=== PATIENT | female | born 1995 | race Hispanic/Latino ===

== ENCOUNTER 2018-03-31 14:30 | Emergency (ER) | payer BC, SELFPAY ==
[2018-03-31] MEDS ORDERED: ONDANSETRON 4 MG/2 ML VIAL ONE (15:26)
[2018-03-31] MEDS ORDERED: NA CHLORIDE 0.9% 1,000 ML ONE (15:26)
[2018-03-31 15:41] LABS: Absolute Lymphocytes (CBC) 0.4 K/uL (0.7-4.9); Absolute Monocytes 0.6 K/uL (0.1-1.3); Absolute Neutrophil 13.1 K/uL (1.8-8.0); Basophils % 0.4 % (0-1.3); Eosinophils % 0.5 % (0-4.4); Hematocrit 41.8 % (36.0-45.0); Lymphocytes % 2.9 % (15.3-44.8); MCH 29.2 pg (27.0-35.0); MCV 85.9 fL (80-100); MPV 10.5 fL (7.6-11.3); Monocytes % 4.4 % (3.3-12.3); RBC Red Blood Cell Count 4.86 M/uL (3.86-4.86)
[2018-03-31 15:43] LABS: Bicarbonate 25 mEq/L (21-31); Glucose Level 117 mg/dL (65-120); Lipase 28 U/L (22-51); Potassium 3.6 mEq/L (3.6-5.0); Sodium Level 137 mEq/L (135-145)
[2018-03-31 15:46] LABS: ALT/SGPT 19 IU/L (10-60); AST/SGOT 22 IU/L (10-42); Albumin 4.5 g/dL (3.2-5.5); Alkaline Phosphatase 78 IU/L (42-121); BUN Blood Urea Nitrogen 12 mg/dL (6-20); Bilirubin Total 0.7 mg/dL (0.3-1.2); Protein, Total 7.6 g/dL (6.0-8.3)
[2018-03-31 15:48] LABS: Urine Blood NEGATIVE (NEG); Urine Glucose NEGATIVE (NEG); Urine Protein 1+ (NEG); Urine Specific Gravity 1.015 (1.005-1.030); Urine pH 7.5 (5.0-7.0)
[2018-03-31 16:05] LABS: Urine Bacteria <20 /HPF (<20); Urine Culture Reflex Order NOT NEEDED; Urine RBC <5 /HPF (NONE SEEN)
[2018-03-31 16:13] LABS: Blood Morphology Comment NOT SEEN (NOT SEEN); Platelet Estimate ADEQ; Urine White Blood Cell Casts OK
--- NOTE | 2018-03-31 17:09 | ER ---
Nurse's Notes [facility] Name: Nay An Age: 22 yrs Sex: Female : 1995 Arrival Date: 03/31/2018 Time: 14:31 Bed 17 Private MD: Bulmaro Calle Diagnosis: Vomiting Presentation: 03/31 14:44 Presenting complaint: Patient states: Woke up around 0400 this morning with epigastric dm5 pain that was intermittent and "felt like there was a knot", patient states they woke up again around 0700 and vomitted x 2 today. Patient also complains of bilateral flank pain. Pain rated at 5/10 earlier it was a 9/10. Transition of care: patient was not received from another setting of care. Onset of symptoms was March 31, 2018. Risk Assessment: Do you want to hurt yourself or someone else? Patient reports no desire to harm self or others. Initial Sepsis Screen: Does the patient meet any 2 criteria? HR > 90 bpm. Does the patient have a suspected source of infection? No. Patient's initial sepsis screen is negative. Care prior to arrival: None. 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 - Social history:: Smoking status: Patient/guardian denies using tobacco, never smoked, Patient/guardian denies using alcohol. - Ebola Screening: : Patient denies travel to an Ebola-affected area in the 21 days before illness onset No symptoms or risks identified at this time. Screenin:09 Abuse screen: Denies threats or abuse. Nutritional screening: No deficits noted. mb3 Tuberculosis screening: No symptoms or risk factors identified. Fall Risk None identified. Assessment: 15:07 General: Appears in no apparent distress. comfortable, Behavior is calm, cooperative, mb3 appropriate for age. Pain: Complains of pain in right mid back and right low back Pain does not radiate. Neuro: No deficits noted. Cardiovascular: No deficits noted. Respiratory: No deficits noted. GI: No deficits noted. Abdomen is flat, Bowel sounds present X 4 quads. Abd is soft and non tender Reports did have mid epigastric pain and nausea but has since subsided. : No signs and/or symptoms were reported regarding the genitourinary system. EENT: No signs and/or symptoms were reported regarding the EENT system. Derm: No signs and/or symptoms reported regarding the dermatologic system. Vital Signs: 14:44 BP 105 / 69; Pulse 124; Resp 18; Temp 99; Pulse Ox 97% on R/A; Weight 54.43 kg; Height dm5 5 ft. 3 in. (160.02 cm); Pain 5/10; 16:10 BP 109 / 65; Pulse 98; Resp 16; Pulse Ox 99% on R/A; mh5 17:27 BP 110 / 74; Pulse 93; Resp 16; Pulse Ox 99% on R/A; mb3 14:44 Body Mass Index 21.26 (54.43 kg, 160.02 cm) dm5 ED Course: 14:31 Patient arrived in ED. sb2 14:32 Bulmaro Calle MD is Private Physician. sb2 14:47 Triage completed. dm5 14:51 Jarrell Gunderson MD is Attending Physician. gs 14:51 Sree Burns, JASWINDER is Primary Nurse. mb3 15:15 Inserted saline lock: 20 gauge in right antecubital area, using aseptic technique. mb3 Blood collected. 15:31 Patient has correct armband on for positive identification. Placed in gown. Bed in low mb3 position. Call light in reach. Side rails up X 1. Pulse ox on. NIBP on. 15:33 Arm band placed on left wrist. mb3 17:28 No provider procedures requiring assistance completed. IV discontinued, intact, mb3 bleeding controlled, No redness/swelling at site. Pressure dressing applied. Administered Medications: 15:29 Drug: Zofran 4 mg Route: IVP; Site: right antecubital; mb3 17:29 Follow up: Response: No adverse reaction; Nausea is decreased mb3 15:30 Drug: NS 0.9% 1000 ml Route: IV; Rate: 1 bolus; Site: right antecubital; mb3 17:30 Follow up: Response: No adverse reaction; IV Status: Completed infusion; IV Intake: mb3 1000ml Intake: 17:30 IV: 1000ml; Total: 1000ml. mb3 Outcome: 17:09 Discharge ordered by . nazia 17:28 Discharged to home ambulatory. mb3 17:28 Condition: stable 17:28 Discharge instructions given to patient, Instructed on discharge instructions, follow up and referral plans. medication usage, Demonstrated understanding of instructions, follow-up care, medications, Prescriptions given X 1. 17:30 Patient left the ED. mb3 Signatures: Jennifer Vogt, RN RN 5 Renu Hall 5 Jarrell Gunderson MD MD gs Billeau, Sheri 2 Sree Burns RN RN mb3
--- NOTE | 2018-03-31 17:09 | EDPHYS ---
Physician Documentation [facility] Name: Nay An Age: 22 yrs Sex: Female : 1995 Arrival Date: 03/31/2018 Time: 14:31 Bed 17 Private MD: Bulmaro Calle ED Physician Jarrell Gunderson HPI: 03/31 16:53 This 22 yrs old Female presents to ER via Ambulatory with complaints of gs Vomiting, Back Pain. 16:53 The patient presents to the emergency department with vomiting. Onset: The gs symptoms/episode began/occurred this morning. Possible causes: unknown. The symptoms are aggravated by nothing. The symptoms are alleviated by nothing. Associated signs and symptoms: Pertinent negatives: dysuria, GI bleeding. Severity of symptoms: At their worst the symptoms were severe in the emergency department the symptoms have improved markedly. The patient has experienced similar episodes in the past, a few times. The patient has not recently seen a physician. 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 - Social history:: Smoking status: Patient/guardian denies using tobacco, never smoked, Patient/guardian denies using alcohol. - Ebola Screening: : Patient denies travel to an Ebola-affected area in the 21 days before illness onset No symptoms or risks identified at this time. ROS: 16:53 All other systems are negative. gs Exam: 16:53 Head/Face: Normocephalic, atraumatic. Eyes: Pupils equal round and reactive to light, gs extra-ocular motions intact. Lids and lashes normal. Conjunctiva and sclera are non-icteric and not injected. Cornea within normal limits. Periorbital areas with no swelling, redness, or edema. ENT: Nares patent. No nasal discharge, no septal abnormalities noted. Tympanic membranes are normal and external auditory canals are clear. Oropharynx with no redness, swelling, or masses, exudates, or evidence of obstruction, uvula midline. Mucous membranes moist. 16:53 Constitutional: The patient appears alert, awake. 17:06 Neck: Trachea midline, no thyromegaly or masses palpated, and no cervical gs lymphadenopathy. Supple, full range of motion without nuchal rigidity, or vertebral point tenderness. No Meningismus. Chest/axilla: Normal chest wall appearance and motion. Nontender with no deformity. No lesions are appreciated. Cardiovascular: Regular rate and rhythm with a normal S1 and S2. No gallops, murmurs, or rubs. Normal PMI, no JVD. No pulse deficits. Respiratory: Lungs have equal breath sounds bilaterally, clear to auscultation and percussion. No rales, rhonchi or wheezes noted. No increased work of breathing, no retractions or nasal flaring. Abdomen/GI: Soft, non-tender, with normal bowel sounds. No distension or tympany. No guarding or rebound. No evidence of tenderness throughout. Back: No spinal tenderness. No costovertebral tenderness. Full range of motion. Skin: Warm, dry with normal turgor. Normal color with no rashes, no lesions, and no evidence of cellulitis. MS/ Extremity: Pulses equal, no cyanosis. Neurovascular intact. Full, normal range of motion. Neuro: Awake and alert, GCS 15, oriented to person, place, time, and situation. Cranial nerves II-XII grossly intact. Motor strength 5/5 in all extremities. Sensory grossly intact. Cerebellar exam normal. Normal gait. Vital Signs: 14:44 BP 105 / 69; Pulse 124; Resp 18; Temp 99; Pulse Ox 97% on R/A; Weight 54.43 kg; Height dm5 5 ft. 3 in. (160.02 cm); Pain 5/10; 16:10 BP 109 / 65; Pulse 98; Resp 16; Pulse Ox 99% on R/A; mh5 17:27 BP 110 / 74; Pulse 93; Resp 16; Pulse Ox 99% on R/A; mb3 14:44 Body Mass Index 21.26 (54.43 kg, 160.02 cm) dm5 MDM: 16:25 Patient medically screened. 17:06 Differential diagnosis: Nonspecific abd pain, gastroenteritis, uti,. Data gs reviewed: vital signs, nurses notes. Response to treatment: the patient's symptoms have markedly improved after treatment, the patient's symptoms have resolved after treatment, patient is well hydrated. tolerated fluids. 03/31 15:00 Order name: Urine Microscopic Only; Complete Time: 16:25 gs 03/31 15:00 Order name: CBC with Diff; Complete Time: 16: 03/31 15:00 Order name: CMP; Complete Time: 16: 03/31 15:00 Order name: Lipase; Complete Time: 16: 03/31 15:24 Order name: Urine Dipstick--Ancillary (enter results); Complete Time: 16:25 [facility] 03/31 15:24 Order name: Urine --Ancillary (enter results); Complete Time: 16: [facility] 03/31 15:00 Order name: Urine Test (obtain specimen); Complete Time: 15: 03/31 15:00 Order name: Urine Dipstick-Ancillary (obtain specimen); Complete Time: 15: 03/31 15:42 Order name: CBC Smear Scan; Complete Time: 16:25 EDMS Administered Medications: 15:29 Drug: Zofran 4 mg Route: IVP; Site: right antecubital; mb3 17:29 Follow up: Response: No adverse reaction; Nausea is decreased mb3 15:30 Drug: NS 0.9% 1000 ml Route: IV; Rate: 1 bolus; Site: right antecubital; mb3 17:30 Follow up: Response: No adverse reaction; IV Status: Completed infusion; IV Intake: mb3 1000ml Disposition: 03/31/18 17:09 Discharged to Home. Impression: Vomiting. - Condition is Stable. - Discharge Instructions: Nausea and Vomiting. - Prescriptions for Zofran 4 mg Oral Tablet - take 1 tablet by ORAL route every 12 hours As needed; 10 tablet. - Medication Reconciliation Form, Thank You Letter, Antibiotic Education, Prescription Opioid Use form. - Follow up: Private Physician; When: 2 - 3 days; Reason: Re-evaluation by your physician. Signatures: Dispatcher [facility] Hill[facility]arrell Khan MD MD Sree Burns RN RN mb3 Corrections: (The following items were deleted from the chart) 17:30 17:09 03/31/2018 17:09 Discharged to Home. Impression: Vomiting. Condition is Stable. mb3 Forms are Medication Reconciliation Form, Thank You Letter, Antibiotic Education, Prescription Opioid Use. Follow up: Private Physician; When: 2 - 3 days; Reason: Re-evaluation by your physician.
== END 2018-03-31 17:30 | disposition home or self-care (01) ==
LOC: ER 14:30
DX: R11.10 Vomiting, unspecified (principal)
CPT/HCPCS: 36415; 80053; 81003; 81015; 81025; 83690; 85025; 96361; 96374; 99284; J2405; J7030

== ENCOUNTER 2018-06-11 14:47 | Emergency (ER) | payer SELFPAY ==
--- NOTE | 2018-06-11 15:46 | ER ---
Nurse's Notes [facility] Name: Nay An Age: 23 yrs Sex: Female : 1995 Arrival Date: 06/11/2018 Time: 14:50 Bed 10 Private MD: Bulmaro Calle Diagnosis: Acute pharyngitis Presentation: 06/11 15:11 Presenting complaint: Patient states: sore throat and chills that began yesterday. Pt aa5 also reports cloudy urine x 2-3 weeks ago, denies burning with urination. Transition of care: patient was not received from another setting of care. Onset of symptoms was May 2018. Risk Assessment: Do you want to hurt yourself or someone else? Patient reports no desire to harm self or others. Initial Sepsis Screen: Does the patient meet any 2 criteria? No. Patient's initial sepsis screen is negative. Does the patient have a suspected source of infection? No. Patient's initial sepsis screen is negative. Care prior to arrival: None. 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 - Social history:: Smoking status: Patient uses tobacco products, smokes one-half pack cigarettes per day. - Ebola Screening: : No symptoms or risks identified at this time. Screenin:52 Abuse screen: Denies threats or abuse. Denies injuries from another. Nutritional iw screening: No deficits noted. Tuberculosis screening: No symptoms or risk factors identified. 16:15 Fall Risk None identified. iw Assessment: 15:52 General: Appears in no apparent distress. Behavior is calm, cooperative. General: iw Reports fever for. Pain: Unable to use pain scale. FLACC scale score is 0 out of 10. Neuro: Level of Consciousness is awake, alert, Moves all extremities. Full function. Cardiovascular: Patient's skin is warm and dry. Respiratory: Respiratory effort is even, unlabored, Respiratory pattern is regular, symmetrical. Derm: Skin is intact, is healthy with good turgor. Musculoskeletal: Range of motion: intact in all extremities. Vital Signs: 15:13 BP 125 / 83; Pulse 88; Resp 16 S; Temp 98.8(O); Pulse Ox 96% on R/A; Weight 52.16 kg aa5 (R); Height 5 ft. 3 in. (160.02 cm) (R); Pain 6/10; 15:13 Body Mass Index 20.37 (52.16 kg, 160.02 cm) aa5 ED Course: 14:50 Patient arrived in ED. mr 14:50 Bulmaro Calle MD is Private Physician. mr 15:12 Triage completed. aa5 15:12 Arm band placed on. aa5 15:29 [facility] Bush [facility]. jr8 15:29 Del Cantu MD is Attending Physician. jr8 15:45 Bulmaro Calle MD is Referral Physician. jr8 15:52 Zaynab Julio, JASWINDER is Primary Nurse. iw 15:57 Strep swab sent to lab. iw 16:00 Patient has correct armband on for positive identification. iw 16:05 No provider procedures requiring assistance completed. Patient did not have IV access iw during this emergency room visit. Administered Medications: No medications were administered Outcome: 15:45 Discharge ordered by . jr8 16:06 Discharged to home ambulatory. iw 16:06 Condition: good 16:06 Discharge instructions given to patient, Instructed on discharge instructions, follow up and referral plans. medication usage, Demonstrated understanding of instructions, follow-up care, medications, Prescriptions given X 1. 16:07 Patient left the ED. Signatures: Igor Farr RN RN sg Rivera, Maria mr Zaynab Julio RN RN Brianna Bernstein RN RN [facility] Marlo Bush PA PA [facility]
--- NOTE | 2018-06-11 15:46 | EDPHYS ---
Physician Documentation [facility] Name: Nay An Age: 23 yrs Sex: Female : 1995 Arrival Date: 06/11/2018 Time: 14:50 Bed 10 Private MD: Bulmaro Calle ED Physician Del Cantu HPI: 06/11 15:53 This 23 yrs old Female presents to ER via Ambulatory with complaints of Fever. jr8 15:53 The patient reports fever, not measured (subjective). Onset: The symptoms/episode jr8 began/occurred acutely, yesterday. Modifying factors: there are no obvious modifying factors. Associated signs and symptoms: Pertinent positives: headache, sore throat. Severity of symptoms: At their worst the symptoms were mild in the emergency department the symptoms are unchanged. The patient has not experienced similar symptoms in the past. The patient has not recently seen a physician. 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 - Social history:: Smoking status: Patient uses tobacco products, smokes one-half pack cigarettes per day. - Ebola Screening: : No symptoms or risks identified at this time. ROS: 15:53 Eyes: Negative for injury, pain, redness, and discharge, Neck: Negative for injury, jr8 pain, and swelling, Cardiovascular: Negative for chest pain, palpitations, and edema, Respiratory: Negative for shortness of breath, cough, wheezing, and pleuritic chest pain, Abdomen/GI: Negative for abdominal pain, nausea, vomiting, diarrhea, and constipation, Back: Negative for injury and pain, MS/Extremity: Negative for injury and deformity, Skin: Negative for injury, rash, and discoloration. 15:53 Constitutional: Positive for body aches, chills, fever. 15:53 ENT: Positive for sore throat, Negative for drainage from ear(s), ear pain, rhinorrhea, sinus congestion, sinus pain, difficulty swallowing, difficulty handling secretions, hoarseness. 15:53 Neuro: Positive for headache, Negative for altered mental status, dizziness, gait disturbance, hearing loss, loss of consciousness, numbness, seizure activity, speech changes, syncope, near syncope, tingling, tinnitus, tremor, visual changes, weakness. Exam: 15:53 Constitutional: This is a well developed, well nourished patient who is awake, alert, jr8 and in no acute distress. Eyes: Pupils equal round and reactive to light, extra-ocular motions intact. Lids and lashes normal. Conjunctiva and sclera are non-icteric and not injected. Cornea within normal limits. Periorbital areas with no swelling, redness, or edema. Neck: Trachea midline, no thyromegaly or masses palpated, and no cervical lymphadenopathy. Supple, full range of motion without nuchal rigidity, or vertebral point tenderness. No Meningismus. Cardiovascular: Regular rate and rhythm with a normal S1 and S2. No gallops, murmurs, or rubs. Normal PMI, no JVD. No pulse deficits. Respiratory: Lungs have equal breath sounds bilaterally, clear to auscultation and percussion. No rales, rhonchi or wheezes noted. No increased work of breathing, no retractions or nasal flaring. Abdomen/GI: Soft, non-tender, with normal bowel sounds. No distension or tympany. No guarding or rebound. No evidence of tenderness throughout. Back: No spinal tenderness. No costovertebral tenderness. Full range of motion. Skin: Warm, dry with normal turgor. Normal color with no rashes, no lesions, and no evidence of cellulitis. MS/ Extremity: Pulses equal, no cyanosis. Neurovascular intact. Full, normal range of motion. Neuro: Awake and alert, GCS 15, oriented to person, place, time, and situation. Cranial nerves II-XII grossly intact. Motor strength 5/5 in all extremities. Sensory grossly intact. Cerebellar exam normal. Normal gait. 15:53 ENT: Exam is negative for earache, ear discharge, TM abnormalities, nasal discharge, sinus tenderness, Mouth: Lips: moist, Oral mucosa: pink and intact, moist, Gums: pink, Tongue: is moist, Posterior pharynx: Airway: patent, Tonsils: bilaterally enlarged, with erythema, with exudate, no ulcerations, Uvula: midline, non-edematous, no erythema, swelling, is not appreciated, erythema, that is mild. Vital Signs: 15:13 BP 125 / 83; Pulse 88; Resp 16 S; Temp 98.8(O); Pulse Ox 96% on R/A; Weight 52.16 kg aa5 (R); Height 5 ft. 3 in. (160.02 cm) (R); Pain 6/10; 15:13 Body Mass Index 20.37 (52.16 kg, 160.02 cm) aa5 MDM: 15:29 Patient medically screened. jr8 15:44 Data reviewed: vital signs, nurses notes, lab test result(s), and as a result, I will jr8 discharge patient. Data interpreted: Pulse oximetry: on room air is 96 %. Interpretation: normal. Counseling: I had a detailed discussion with the patient and/or guardian regarding: the historical points, exam findings, and any diagnostic results supporting the discharge/admit diagnosis, lab results, the need for outpatient follow up, a family practitioner, to return to the emergency department if symptoms worsen or persist or if there are any questions or concerns that arise at home. 06/11 15:45 Order name: Strep jr8 Administered Medications: No medications were administered Disposition: 06/12 12:10 Co-signature as Attending Physician, Del Cantu MD I agree with the assessment and karen plan of care. Disposition: 06/11/18 15:45 Discharged to Home. Impression: Acute pharyngitis. - Condition is Stable. - Discharge Instructions: Pharyngitis. - Prescriptions for Augmentin 875- 125 mg Oral Tablet - take 1 tablet by ORAL route every 12 hours for 10 days; 20 tablet. Tessalon Perles 100 mg Oral Capsule - take 1 capsule by ORAL route every 8 hours As needed; 15 capsule. - Medication Reconciliation Form, Thank You Letter, Antibiotic Education, Prescription Opioid Use form. - Work release form (06/11/18 16:08). sg - Follow up: Bulmaro Calle MD; When: 1 week; Reason: Recheck today's complaints, Continuance of care, Re-evaluation by your physician. - Problem is new. - Symptoms have improved. Signatures: Dispatcher [employer] EDIgor Mckeon RN RN Del Romeo MD MD cha Calderon, Audri, RN RN aa5 Marlo Bush PA PA jr8 Corrections: (The following items were deleted from the chart) 06/11 16:07 15:45 06/11/2018 15:45 Discharged to Home. Impression: Acute pharyngitis. Condition is sg Stable. Forms are Medication Reconciliation Form, Thank You Letter, Antibiotic Education, Prescription Opioid Use. Follow up: Bulmaro Calle; When: 1 week; Reason: Recheck today's complaints, Continuance of care, Re-evaluation by your physician. Problem is new. Symptoms have improved. jr8
== END 2018-06-11 16:07 | disposition home or self-care (01) ==
LOC: ER 14:47
DX: J02.9 Acute pharyngitis, unspecified (principal); F17.210 Nicotine dependence, cigarettes, uncomplicated
CPT/HCPCS: 87070; 87081; 99283

== ENCOUNTER 2018-10-30 02:36 | Emergency (ER) | payer SELFPAY ==
[2018-10-30 03:10] LABS: Urine Blood TRACE (NEG); Urine Glucose NEGATIVE (NEG); Urine Protein TRACE (NEG)
[2018-10-30] MEDS ORDERED: ACETAMINOPHEN 500 MG TAB ONE (03:31)
--- NOTE | 2018-10-30 03:57 | ER ---
Nurse's Notes [facility] Name: Nay An Age: 23 yrs Sex: Female : 1995 Arrival Date: 10/30/2018 Time: 02:37 Bed 6 Private MD: Bulmaro Calle Diagnosis: Headache Presentation: 10/30 02:48 Presenting complaint: Patient states: she has had a headache for 2 weeks which is bb constant she has tried some OTC medications which help a little but the headache is still there pt also states she may be she is several weeks late on her menstrual cycle. Transition of care: patient was not received from another setting of care. Onset of symptoms was October 16, 2018. Risk Assessment: Do you want to hurt yourself or someone else? Patient reports no desire to harm self or others. Initial Sepsis Screen: Does the patient meet any 2 criteria? No. Patient's initial sepsis screen is negative. Does the patient have a suspected source of infection? No. Patient's initial sepsis screen is negative. Care prior to arrival: None. 02:48 Method Of Arrival: Ambulatory bb 02:48 Acuity: TRAMAINE 3 bb Triage Assessment: 04:09 Headache History: Denies prior headaches. Pain: Pain level that patient reports is jd3 acceptable is 3 out of 10 on a pain scale. Pain began gradually, Also complains of no other associated symptoms. 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 - Social history:: Smoking status: Patient uses tobacco products, smokes one-half pack cigarettes per day, Patient uses alcohol, Patient/guardian denies using street drugs. - Ebola Screening: : No symptoms or risks identified at this time. Screenin:49 Abuse screen: Denies threats or abuse. Nutritional screening: No deficits noted. jd3 Tuberculosis screening: No symptoms or risk factors identified. Fall Risk Ambulatory Aid- None/Bed Rest/Nurse Assist (0 pts). Gait- Normal/Bed Rest/Wheelchair (0 pts) Mental Status- Oriented to own ability (0 pts). Total Levin Fall Scale indicates No Risk (0-24 pts). Assessment: 02:48 General: Appears in no apparent distress. uncomfortable, Behavior is calm, cooperative, jd3 appropriate for age. Pain: Complains of pain in head Quality of pain is described as sharp. Neuro: Level of Consciousness is awake, alert, obeys commands, Oriented to person, place, time, situation, Appropriate for age Moves all extremities. Full function Gait is steady, Speech is normal, Pupils are PERRLA. Cardiovascular: Capillary refill < 3 seconds Patient's skin is warm and dry. Respiratory: Airway is patent Respiratory effort is even, unlabored, Respiratory pattern is regular, symmetrical. GI: No signs and/or symptoms were reported involving the gastrointestinal system. : No signs and/or symptoms were reported regarding the genitourinary system. EENT: No signs and/or symptoms were reported regarding the EENT system. Derm: Skin is intact, Skin is dry, Skin is normal, Skin temperature is warm. Musculoskeletal: Circulation, motion, and sensation intact. Range of motion: intact in all extremities. 04:08 Reassessment: Patient appears in no apparent distress at this time. Patient and/or jd3 family updated on plan of care and expected duration. Pain level reassessed. Patient is alert, oriented x 3, equal unlabored respirations, skin warm/dry/pink. Patient states feeling better. Vital Signs: 02:50 BP 139 / 96; Pulse 94; Resp 16 S; Temp 98.9(O); Pulse Ox 100% on R/A; Weight 54.43 kg bb (R); Height 5 ft. 3 in. (160.02 cm) (R); Pain 7/10; 04:08 BP 124 / 61; Pulse 88; Resp 16 S; Pulse Ox 100% on R/A; jd3 02:50 Body Mass Index 21.26 (54.43 kg, 160.02 cm) bb [place] Coma Score: 05:13 Eye Response: spontaneous(4). Verbal Response: oriented(5). Motor Response: obeys tw4 commands(6). Total: 15. ED Course: 02:37 Patient arrived in ED. am2 02:38 Bulmaro Calle MD is Private Physician. am2 02:47 Sellers, Dario, RN is Primary Nurse. jd3 02:50 Triage completed. bb 02:50 Patient has correct armband on for positive identification. Placed in gown. Bed in low jd3 position. Call light in reach. Side rails up X 1. 02:50 Arm band placed on Patient placed in an exam room, on a stretcher, on pulse oximetry. bb 03:06 Willard Riggs MD is Attending Physician. tw4 03:55 Bulmaro Calle MD is Referral Physician. tw4 04:09 No provider procedures requiring assistance completed. Patient did not have IV access jd3 during this emergency room visit. Administered Medications: 03:24 Drug: Tylenol 1000 mg Route: PO; jd3 04:10 Follow up: Response: No adverse reaction jd3 Outcome: 03:57 Discharge ordered by . tw4 04:09 Discharged to home ambulatory, with family. jd3 04:09 Condition: stable 04:09 Discharge instructions given to patient, family, Instructed on discharge instructions, follow up and referral plans. Demonstrated understanding of instructions, follow-up care. 04:10 Patient left the ED. jd3 Signatures: Claudine Cote, RN RN Kenisha Hendrix Jonathon, RN RN jWillard Moreno MD MD tw4
--- NOTE | 2018-10-31 04:11 | EDPHYS ---
Physician Documentation [facility] Name: Nay An Age: 23 yrs Sex: Female : 1995 Arrival Date: 10/30/2018 Time: 02:37 Bed 6 Private MD: Bulmaro Calle ED Physician Willard Riggs HPI: 10/30 05:13 This 23 yrs old Female presents to ER via Ambulatory with complaints of tw4 Headache. 05:13 The patient complains of pain to the right zoroastrian and left zoroastrian. The patient tw4 describes the headache as a pressure. Onset: The symptoms/episode began/occurred 2 week(s) ago. Associated signs and symptoms: The patient has no apparent associated signs or symptoms. Severity of symptoms: At its worst the pain was mild, in the emergency department the pain is unchanged. The symptoms are alleviated by nothing. the symptoms are aggravated by nothing. The patient has not experienced similar symptoms in the past. 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 - Social history:: Smoking status: Patient uses tobacco products, smokes one-half pack cigarettes per day, Patient uses alcohol, Patient/guardian denies using street drugs. - Ebola Screening: : No symptoms or risks identified at this time. ROS: 05:13 Constitutional: Negative for fever, chills, and weight loss, Eyes: Negative for injury, tw4 pain, redness, and discharge, Cardiovascular: Negative for chest pain, palpitations, and edema, Respiratory: Negative for shortness of breath, cough, wheezing, and pleuritic chest pain, Abdomen/GI: Negative for abdominal pain, nausea, vomiting, diarrhea, and constipation, MS/Extremity: Negative for injury and deformity, Skin: Negative for injury, rash, and discoloration. 05:13 Neuro: Positive for headache, Negative for altered mental status, dizziness, gait disturbance, numbness, seizure activity, speech changes, syncope, near syncope, tinnitus, tremor, visual changes. Exam: 05:13 Constitutional: This is a well developed, well nourished patient who is awake, alert, tw4 and in no acute distress. Head/Face: Normocephalic, atraumatic. Chest/axilla: Normal chest wall appearance and motion. Nontender with no deformity. No lesions are appreciated. Cardiovascular: Regular rate and rhythm with a normal S1 and S2. No gallops, murmurs, or rubs. Normal PMI, no JVD. No pulse deficits. Respiratory: Lungs have equal breath sounds bilaterally, clear to auscultation and percussion. No rales, rhonchi or wheezes noted. No increased work of breathing, no retractions or nasal flaring. Abdomen/GI: Soft, non-tender, with normal bowel sounds. No distension or tympany. No guarding or rebound. No evidence of tenderness throughout. Skin: Warm, dry with normal turgor. Normal color with no rashes, no lesions, and no evidence of cellulitis. MS/ Extremity: Pulses equal, no cyanosis. Neurovascular intact. Full, normal range of motion. Neuro: Awake and alert, GCS 15, oriented to person, place, time, and situation. Cranial nerves II-XII grossly intact. Motor strength 5/5 in all extremities. Sensory grossly intact. Cerebellar exam normal. Normal gait. Vital Signs: 02:50 BP 139 / 96; Pulse 94; Resp 16 S; Temp 98.9(O); Pulse Ox 100% on R/A; Weight 54.43 kg bb (R); Height 5 ft. 3 in. (160.02 cm) (R); Pain 7/10; 04:08 BP 124 / 61; Pulse 88; Resp 16 S; Pulse Ox 100% on R/A; jd3 02:50 Body Mass Index 21.26 (54.43 kg, 160.02 cm) bb [place] Coma Score: 05:13 Eye Response: spontaneous(4). Verbal Response: oriented(5). Motor Response: obeys tw4 commands(6). Total: 15. MDM: 03:06 Patient medically screened. tw4 05:13 Data reviewed: vital signs, nurses notes. Counseling: I had a detailed discussion with tw4 the patient and/or guardian regarding: the historical points, exam findings, and any diagnostic results supporting the discharge/admit diagnosis. Special discussion: I discussed with the patient/guardian in detail that at this point there is no indication for admission to the hospital. It is understood, however, that if the symptoms persist or worsen the patient needs to return immediately for re-evaluation. 10/30 02:59 Order name: Urine Dipstick--Ancillary (enter results) 2 10/30 02:59 Order name: Urine --Ancillary (enter results) 2 10/30 02:57 Order name: Urine Dipstick-Ancillary (obtain specimen); Complete Time: 02:57 jd3 10/30 02:57 Order name: Urine Test (obtain specimen); Complete Time: 02:57 jd3 Administered Medications: 03:24 Drug: Tylenol 1000 mg Route: PO; jd3 04:10 Follow up: Response: No adverse reaction jd3 Disposition: 22:35 Co-signature as Attending Physician, Willard Riggs MD I agree with the assessment and tw4 plan of care. Disposition: 10/30/18 03:57 Discharged to Home. Impression: Headache. - Condition is Stable. - Discharge Instructions: General Headache Without Cause, First Trimester of . - Medication Reconciliation Form, Thank You Letter, Antibiotic Education, Prescription Opioid Use form. - Follow up: Bulmaro Calle MD; When: Upon discharge from the Emergency Department; Reason: Recheck today's complaints, Continuance of care. - Problem is new. - Symptoms have improved. Signatures: Dispatcher [employer] Claudine Calvillo RN RN bb Davies, Jonathon, RN RN jd3 Wadley, Terrence, MD MD tw4 Corrections: (The following items were deleted from the chart) 04:10 03:57 10/30/2018 03:57 Discharged to Home. Impression: Headache. Condition is Stable. jd3 Forms are Medication Reconciliation Form, Thank You Letter, Antibiotic Education, Prescription Opioid Use. Follow up: Bulmaro Calle; When: Upon discharge from the Emergency Department; Reason: Recheck today's complaints, Continuance of care. Problem is new. Symptoms have improved. tw4
== END 2018-10-30 04:10 | disposition home or self-care (01) ==
LOC: ER 02:36
DX: R51 Headache (principal); F17.210 Nicotine dependence, cigarettes, uncomplicated
CPT/HCPCS: 81003; 81025; 99283

== ENCOUNTER 2018-11-15 11:52 | Emergency (ER) | payer SELFPAY ==
[2018-11-15 12:36] LABS: Absolute Monocytes 0.7 K/uL (0.1-1.3); Absolute Neutrophil 7.5 K/uL (1.8-8.0); Basophils % 0.4 % (0-1.3); Hematocrit 40.4 % (36.0-45.0); MPV 10.7 fL (7.6-11.3); Monocytes % 7.2 % (3.3-12.3); RBC Red Blood Cell Count 4.76 M/uL (3.86-4.86)
[2018-11-15 13:14] LABS: BUN Blood Urea Nitrogen 8 mg/dL (7-18); Bicarbonate 25 mmol/L (21-32); Glucose Level 80 mg/dL (74-106); HCG, Quantitative 139598 mIU/mL (1-3); Potassium 3.3 mmol/L (3.5-5.1); Sodium Level 137 mmol/L (136-145)
[2018-11-15 13:50] LABS: Urine Blood TRACE (NEG); Urine Glucose NEGATIVE (NEG); Urine Protein NEGATIVE (NEG); Urine Specific Gravity 1.025 (1.005-1.030)
--- NOTE | 2018-11-15 13:59 | RAD REPORT ---
EXAM DESCRIPTION: US - Transvaginal OB - 11/15/2018 1:52 pm CLINICAL HISTORY: with abdominal pain and COMPARISON: None. FINDINGS: The uterus is retroverted measuring 11 x 5 x 6 centimeters. A gestational sac is present within the endometrium. Within this is a yolk sac and pole with a crown-rump length 2.2 centime ters. Cardiac activity 161 beats per minute. A 1.4 centimeters subchorionic bleed is seen Left ovary is normal in size and echotexture. Right ovary was not seen. Right and left adnexal appear unremarkable No significant free fluid is seen. IMPRESSION: Single live intrauterine with an estimated gestational age 8 weeks 6 days BRITNEY 06/21/2019
[2018-11-15 14:06] LABS: Urine Bacteria >50 /HPF (<20); Urine Culture Reflex Order REFLEXED; Urine Mucus 1+ /HPF (NONE SEEN); Urine RBC <5 /HPF (NONE SEEN)
--- NOTE | 2018-11-15 14:16 | ER ---
Nurse's Notes [facility] Name: Nay An Age: 23 yrs Sex: Female : 1995 Arrival Date: 11/15/2018 Time: 11:54 Bed 16 Private MD: Bulmaro Calle Diagnosis: Urinary tract infection, site not specified;8 weeks gestation of Presentation: 11/15 12:07 Presenting complaint: Patient states: Intermittent lower abdominal pain and dizziness, ph states that she is but unsure how far along, denies vaginal bleeding, N/V, or urinary symptoms, LMP early September. Transition of care: patient was not received from another setting of care. Onset of symptoms was November 15, 2018. Risk Assessment: Do you want to hurt yourself or someone else? Patient reports no desire to harm self or others. Initial Sepsis Screen: Does the patient meet any 2 criteria? No. Patient's initial sepsis screen is negative. Does the patient have a suspected source of infection? No. Patient's initial sepsis screen is negative. Care prior to arrival: None. 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 - Ebola Screening: : Patient negative for fever greater than or equal to 101.5 degrees Fahrenheit, and additional compatible Ebola Virus Disease symptoms. - Social history:: Smoking status: Patient/guardian denies using tobacco. Screenin:05 Abuse screen: Denies threats or abuse. Nutritional screening: No deficits noted. rb1 Tuberculosis screening: No symptoms or risk factors identified. Fall Risk None identified. Assessment: 12:05 General: Appears in no apparent distress. comfortable, Behavior is calm, cooperative, rb1 Denies fever. Pain: Complains of pain in abdomen Pain currently is 0 out of 10 on a pain scale. Pain began x 1 week. Neuro: Level of Consciousness is awake, alert, obeys commands, Oriented to person, place, time, situation. Cardiovascular: Capillary refill < 3 seconds is brisk in bilateral fingers. Respiratory: Airway is patent Respiratory effort is even, unlabored, Respiratory pattern is regular, symmetrical. GI: Bowel sounds present X 4 quads. Abd is soft X 4 quads Reports nausea. : No signs and/or symptoms were reported regarding the genitourinary system. Derm: Skin is dry, Skin is normal, Skin temperature is warm. Musculoskeletal: Range of motion: intact in all extremities. 13:00 Reassessment: Patient appears in no apparent distress at this time. No changes from rb1 previously documented assessment. Friend at bedside. 14:00 Reassessment: Patient appears in no apparent distress at this time. Patient and/or rb1 family updated on plan of care and expected duration. Pain level reassessed. Patient is alert, oriented x 3, equal unlabored respirations, skin warm/dry/pink. Vital Signs: 12:09 BP 139 / 97; Pulse 66; Resp 18; Temp 98.0; Pulse Ox 97% on R/A; Weight 57.15 kg; Height ph 5 ft. 3 in. (160.02 cm); Pain 0/10; 13:00 BP 124 / 74; Pulse 67; Resp 17; Pulse Ox 100% on R/A; rb1 14:00 BP 122 / 73; Pulse 73; Resp 18; Pulse Ox 100% ; rb1 14:23 BP 123 / 73; Pulse 91; Resp 17; Pulse Ox 100% on R/A; rb1 12:09 Body Mass Index 22.32 (57.15 kg, 160.02 cm) ph ED Course: 11:54 Patient arrived in ED. sb2 11:55 Bulmaro Calle MD is Private Physician. sb2 12:01 Amarilys Vigil FNP-C [facility]. kb 12:01 Gustavo Callahan MD is Attending Physician. kb 12:05 Patient has correct armband on for positive identification. Bed in low position. Call rb1 light in reach. Side rails up X 1. Pulse ox on. NIBP on. 12:05 Arm band placed on right wrist. rb1 12:06 Stella Ng, JASWINDER is Primary Nurse. rb1 12:09 Triage completed. ph 13:42 Urine collected: clean catch specimen, cloudy, sediment noted. dh3 13:51 US Transvaginal Ob In Process Unspecified. EDMS 14:26 No provider procedures requiring assistance completed. IV discontinued, intact, rb1 bleeding controlled, No redness/swelling at site. Pressure dressing applied. Patient maintains SpO2 saturation greater than 95% on room air. Administered Medications: No medications were administered Outcome: 14:15 Discharge ordered by . kb 14:26 Discharged to home ambulatory. rb1 14:26 Condition: stable 14:26 Discharge instructions given to patient, Instructed on discharge instructions, follow up and referral plans. medication usage, Demonstrated understanding of instructions, follow-up care, medications, Prescriptions given X 1. 14:27 Patient left the ED. rb1 Signatures: Dispatcher [employer] EDMN Amarilys Vigil, RESIDENTIAL SALES CONSULTANT-C RESIDENTIAL SALES CONSULTANT-Catia Bill, RN RN Stella Blanco RN RN rb1 Sommer Rosado 3 Keyona Talavera2
--- NOTE | 2018-11-15 14:17 | EDPHYS ---
Physician Documentation [facility] Name: Nay An Age: 23 yrs Sex: Female : 1995 Arrival Date: 11/15/2018 Time: 11:54 Bed 16 Private MD: Bulmaro Calle ED Physician Gustavo Callahan HPI: 11/15 12:07 This 23 yrs old Female presents to ER via Unassigned with complaints of kb Abdominal Pain - 4-6 WK PG. 12:07 The patient presents to the emergency department with abdominal pain, of the right kb lower quadrant and left lower quadrant, that started 7 day(s) ago. The patient has not experienced similar symptoms in the past. The patient has not recently seen a physician. 12:09 course: care: none, Leakage of Fluid: none appreciated, Ultrasound: kb the patient has not had an ultrasound, Risk/complications: no obvious risks or complications are appreciated. Previous pregnancies: the patient has never been . Associated signs and symptoms: Pertinent positives: abdominal pain, "shaky", Pertinent negatives: chest pain, diarrhea, dysuria, fever, frequency, nausea, ruptured membranes, seizure, shortness of breath, vaginal bleeding, vaginal discharge, vomiting. 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 - Ebola Screening: : Patient negative for fever greater than or equal to 101.5 degrees Fahrenheit, and additional compatible Ebola Virus Disease symptoms. - Social history:: Smoking status: Patient/guardian denies using tobacco. ROS: 12:06 Constitutional: Negative for fever, chills, and weight loss, Neck: Negative for injury, kb pain, and swelling, Cardiovascular: Negative for chest pain, palpitations, and edema, Respiratory: Negative for shortness of breath, cough, wheezing, and pleuritic chest pain, Back: Negative for injury and pain, : Negative for injury, bleeding, discharge, and swelling, MS/Extremity: Negative for injury and deformity, Skin: Negative for injury, rash, and discoloration. 12:06 Abdomen/GI: Positive for abdominal pain, Negative for nausea, vomiting, and diarrhea. Exam: 12:06 Constitutional: This is a well developed, well nourished patient who is awake, alert, kb and in no acute distress. Head/Face: Normocephalic, atraumatic. ENT: Nares patent. No nasal discharge, no septal abnormalities noted. Tympanic membranes are normal and external auditory canals are clear. Oropharynx with no redness, swelling, or masses, exudates, or evidence of obstruction, uvula midline. Mucous membranes moist. Neck: Trachea midline, no thyromegaly or masses palpated, and no cervical lymphadenopathy. Supple, full range of motion without nuchal rigidity, or vertebral point tenderness. No Meningismus. Chest/axilla: Normal chest wall appearance and motion. Nontender with no deformity. No lesions are appreciated. Cardiovascular: Regular rate and rhythm with a normal S1 and S2. No gallops, murmurs, or rubs. Normal PMI, no JVD. No pulse deficits. Respiratory: Lungs have equal breath sounds bilaterally, clear to auscultation and percussion. No rales, rhonchi or wheezes noted. No increased work of breathing, no retractions or nasal flaring. Abdomen/GI: Soft, non-tender, with normal bowel sounds. No distension or tympany. No guarding or rebound. No evidence of tenderness throughout. Back: No spinal tenderness. No costovertebral tenderness. Full range of motion. Skin: Warm, dry with normal turgor. Normal color with no rashes, no lesions, and no evidence of cellulitis. MS/ Extremity: Pulses equal, no cyanosis. Neurovascular intact. Full, normal range of motion. Neuro: Awake and alert, GCS 15, oriented to person, place, time, and situation. Cranial nerves II-XII grossly intact. Motor strength 5/5 in all extremities. Sensory grossly intact. Cerebellar exam normal. Normal gait. Vital Signs: 12:09 BP 139 / 97; Pulse 66; Resp 18; Temp 98.0; Pulse Ox 97% on R/A; Weight 57.15 kg; Height ph 5 ft. 3 in. (160.02 cm); Pain 0/10; 13:00 BP 124 / 74; Pulse 67; Resp 17; Pulse Ox 100% on R/A; rb1 14:00 BP 122 / 73; Pulse 73; Resp 18; Pulse Ox 100% ; rb1 14:23 BP 123 / 73; Pulse 91; Resp 17; Pulse Ox 100% on R/A; rb1 12:09 Body Mass Index 22.32 (57.15 kg, 160.02 cm) ph MDM: 12:01 Patient medically screened. kb 12:05 Data reviewed: vital signs, nurses notes. Data interpreted: Pulse oximetry: on room air kb is 100 %. Interpretation: normal. Counseling: I had a detailed discussion with the patient and/or guardian regarding: the historical points, exam findings, and any diagnostic results supporting the discharge/admit diagnosis, lab results, radiology results, the need for outpatient follow up, an OB/Gyne specialist, to return to the emergency department if symptoms worsen or persist or if there are any questions or concerns that arise at home. 11/15 12:05 Order name: Quantitative Hcg; Complete Time: 13:18 kb 11/15 12:05 Order name: Abo/rh Typing; Complete Time: 13:24 kb 11/15 12:05 Order name: Basic Metabolic Panel; Complete Time: 13:18 kb 11/15 12:05 Order name: CBC with Diff; Complete Time: 13:10 kb 11/15 13:22 Order name: ABO/RH no charge; Complete Time: 13:23 EDMS 11/15 13:35 Order name: Urine Microscopic Only; Complete Time: 14:09 kb 11/15 12:05 Order name: Urine Test (obtain specimen); Complete Time: 13:42 kb 11/15 12:05 Order name: IV Saline Lock; Complete Time: 12:32 kb 11/15 12:05 Order name: Labs collected and sent; Complete Time: 12:32 kb 11/15 12:05 Order name: NPO; Complete Time: 12:32 kb 11/15 12:05 Order name: Urine Dipstick-Ancillary (obtain specimen); Complete Time: 13:42 kb 11/15 13:19 Order name: US Transvaginal Ob; Complete Time: 14:18 kb 11/15 13:41 Order name: Urine Dipstick--Ancillary (enter results); Complete Time: 13:53 eb 11/15 13:41 Order name: Urine --Ancillary (enter results); Complete Time: 13:53 eb Administered Medications: No medications were administered Disposition: 16:13 Co-signature as Attending Physician, Gustavo Callahan MD I agree with the assessment and kdr plan of care. Disposition: 11/15/18 14:15 Discharged to Home. Impression: Urinary tract infection, site not specified, 8 weeks gestation of . - Condition is Stable. - Discharge Instructions: and Urinary Tract Infection. - Prescriptions for Augmentin 875- 125 mg Oral Tablet - take 1 tablet by ORAL route every 12 hours for 7 days; 14 tablet. - Medication Reconciliation Form, Thank You Letter, Antibiotic Education, Prescription Opioid Use form. - Follow up: Emergency Department; When: As needed; Reason: Worsening of condition. Follow up: Private Physician; When: 2 - 3 days; Reason: Recheck today's complaints, Continuance of care, Re-evaluation by your physician. Signatures: Dispatcher [employer] EDMS Amarilys Vigil, ANANDA-Modesta MALAVE-Gustavo Truong MD MD [facility] Catia Gasca RN RN Stella Ng, RN RN rb1 Corrections: (The following items were deleted from the chart) 14:17 14:15 11/15/2018 14:15 Discharged to Home. Impression: Urinary tract infection, site kb not specified. Condition is Stable. Forms are Medication Reconciliation Form, Thank You Letter, Antibiotic Education, Prescription Opioid Use. Follow up: Emergency Department; When: As needed; Reason: Worsening of condition. Follow up: Private Physician; When: 2 - 3 days; Reason: Recheck today's complaints, Continuance of care, Re-evaluation by your physician. kb 14:27 14:17 11/15/2018 14:15 Discharged to Home. Impression: Urinary tract infection, site rb1 not specified; 8 weeks gestation of . Condition is Stable. Discharge Instructions: and Urinary Tract Infection. Prescriptions for Augmentin 875-125 mg Oral Tablet - take 1 tablet by ORAL route every 12 hours for 7 days; 14 tablet. and Forms are Medication Reconciliation Form, Thank You Letter, Antibiotic Education, Prescription Opioid Use. Follow up: Emergency Department; When: As needed; Reason: Worsening of condition. Follow up: Private Physician; When: 2 - 3 days; Reason: Recheck today's complaints, Continuance of care, Re-evaluation by your physician. kb
== END 2018-11-15 14:27 | disposition home or self-care (01) ==
LOC: ER 11:52
DX: O23.41 Unspecified infection of urinary tract in pregnancy, first trimester (principal); Z3A.08 8 weeks gestation of pregnancy
CPT/HCPCS: 36415; 76817; 80048; 81003; 81015; 81025; 84702; 85025; 86900; 86901; 87077; 87086; 87088; 87186; 99284

== ENCOUNTER 2019-01-05 16:12 | Emergency (ER) | payer OTHER, SELFPAY ==
[2019-01-05 17:33] LABS: Absolute Lymphocytes (CBC) 1.7 K/uL (0.7-4.9); Absolute Monocytes 0.7 K/uL (0.1-1.3); Absolute Neutrophil 7.7 K/uL (1.8-8.0); Basophils % 0.2 % (0-1.3); Hematocrit 37.5 % (36.0-45.0); Lymphocytes % 16.7 % (15.3-44.8); MPV 10.6 fL (7.6-11.3); Monocytes % 6.5 % (3.3-12.3); RBC Red Blood Cell Count 4.45 M/uL (3.86-4.86)
[2019-01-05 17:56] LABS: BUN Blood Urea Nitrogen 10 mg/dL (7-18); Bicarbonate 24 mmol/L (21-32); Glucose Level 76 mg/dL (74-106); Potassium 3.6 mmol/L (3.5-5.1); Sodium Level 139 mmol/L (136-145)
[2019-01-05 18:19] LABS: HCG, Quantitative 25974 mIU/mL (1-3)
--- NOTE | 2019-01-05 19:29 | EDPHYS ---
Physician Documentation [facility] Name: Nay An Age: 23 yrs Sex: Female : 1995 Arrival Date: 01/05/2019 Time: 16:16 Bed 15 Private MD: ED Physician Jarrell Gunderson HPI: 01/05 17:22 This 23 yrs old Female presents to ER via Ambulatory with complaints of 15 wks kb , Vaginal Bleeding. 17:22 The patient presents to the emergency department with vaginal bleeding, described as kb spotting. The estimated gestational age is 15 weeks. course: care: at a clinic, Leakage of Fluid: none appreciated, Ultrasound: the patient has not had an ultrasound, Risk/complications: no obvious risks or complications are appreciated. Previous pregnancies: the patient has never been . Associated signs and symptoms: Pertinent positives: vaginal bleeding. The patient has not experienced similar symptoms in the past. The patient has not recently seen a physician. Pt reports she had light pink blood on toilet paper when wiping twice today. . 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 - Social history:: Smoking status: Patient/guardian denies using tobacco. - Ebola Screening: : Patient denies exposure to infectious person Patient denies travel to an Ebola-affected area in the 21 days before illness onset. ROS: 17:21 Constitutional: Negative for fever, chills, and weight loss, Cardiovascular: Negative kb for chest pain, palpitations, and edema, Respiratory: Negative for shortness of breath, cough, wheezing, and pleuritic chest pain, Abdomen/GI: Negative for abdominal pain, nausea, vomiting, diarrhea, and constipation, MS/Extremity: Negative for injury and deformity, Skin: Negative for injury, rash, and discoloration, Neuro: Negative for headache, weakness, numbness, tingling, and seizure. 17:21 : Positive for vaginal bleeding. Exam: 17:21 Constitutional: This is a well developed, well nourished patient who is awake, alert, kb and in no acute distress. Head/Face: Normocephalic, atraumatic. ENT: Nares patent. No nasal discharge, no septal abnormalities noted. Tympanic membranes are normal and external auditory canals are clear. Oropharynx with no redness, swelling, or masses, exudates, or evidence of obstruction, uvula midline. Mucous membranes moist. Neck: Trachea midline, no thyromegaly or masses palpated, and no cervical lymphadenopathy. Supple, full range of motion without nuchal rigidity, or vertebral point tenderness. No Meningismus. Chest/axilla: Normal chest wall appearance and motion. Nontender with no deformity. No lesions are appreciated. Cardiovascular: Regular rate and rhythm with a normal S1 and S2. No gallops, murmurs, or rubs. Normal PMI, no JVD. No pulse deficits. Respiratory: Lungs have equal breath sounds bilaterally, clear to auscultation and percussion. No rales, rhonchi or wheezes noted. No increased work of breathing, no retractions or nasal flaring. Abdomen/GI: Soft, non-tender, with normal bowel sounds. No distension or tympany. No guarding or rebound. No evidence of tenderness throughout. Skin: Warm, dry with normal turgor. Normal color with no rashes, no lesions, and no evidence of cellulitis. MS/ Extremity: Pulses equal, no cyanosis. Neurovascular intact. Full, normal range of motion. Neuro: Awake and alert, GCS 15, oriented to person, place, time, and situation. Cranial nerves II-XII grossly intact. Motor strength 5/5 in all extremities. Sensory grossly intact. Cerebellar exam normal. Normal gait. Vital Signs: 16:21 BP 128 / 75; Pulse 95; Resp 15; Temp 98.3(TE); Pulse Ox 99% on R/A; Weight 57.15 kg; ss Height 5 ft. 3 in. (160.02 cm); Pain 0/10; 18:31 BP 113 / 66; Pulse 78; Resp 15; Pulse Ox 100% on R/A; Pain 0/10; rb1 19:05 BP 113 / 77; Pulse 89; Resp 16; Pulse Ox 100% on R/A; jb4 20:00 BP 109 / 71; Pulse 71; Resp 16; Pulse Ox 100% on R/A; jb4 16:21 Body Mass Index 22.32 (57.15 kg, 160.02 cm) ss MDM: 17:11 Patient medically screened. kb 17:21 Data reviewed: vital signs, nurses notes. Data interpreted: Pulse oximetry: on room air kb is 99 %. Interpretation: normal. 19:28 Counseling: I had a detailed discussion with the patient and/or guardian regarding: the kb historical points, exam findings, and any diagnostic results supporting the discharge/admit diagnosis, lab results, radiology results, the need for outpatient follow up, an OB/Gyne specialist, to return to the emergency department if symptoms worsen or persist or if there are any questions or concerns that arise at home. 01/05 16:54 Order name: Quantitative Hcg; Complete Time: 18:21 kb 01/05 16:54 Order name: Abo/rh Typing; Complete Time: 18:03 kb 01/05 16:54 Order name: Basic Metabolic Panel; Complete Time: 18:21 kb 01/05 16:54 Order name: CBC with Diff; Complete Time: 17:44 kb 01/05 17:58 Order name: Urine Dipstick--Ancillary (enter results) ms 01/05 17:58 Order name: Urine --Ancillary (enter results) ms 01/05 16:54 Order name: Urine Test (obtain specimen); Complete Time: 17:42 kb 01/05 16:54 Order name: IV Saline Lock; Complete Time: 17:29 kb 01/05 16:54 Order name: Labs collected and sent; Complete Time: 17:29 kb 01/05 16:54 Order name: NPO; Complete Time: 17:29 kb 01/05 16:54 Order name: Urine Dipstick-Ancillary (obtain specimen); Complete Time: 17:42 kb 01/05 18:22 Order name: OB Limited US; Complete Time: 19:36 kb Administered Medications: No medications were administered Disposition: 01/05/19 19:28 Discharged to Home. Impression: 15 weeks gestation of . - Condition is Stable. - Discharge Instructions: Second Trimester of , [id number]. - Medication Reconciliation Form, Thank You Letter, Antibiotic Education, Prescription Opioid Use form. - Follow up: Emergency Department; When: As needed; Reason: Worsening of condition. Follow up: Private Physician; When: 2 - 3 days; Reason: Recheck today's complaints, Continuance of care, Re-evaluation by your physician. Addendum: 01/09/2019 21:55 Co-signature as Attending Physician, Jarrell Gunderson MD. g s Signatures: Dispatcher [employer] EDMS Musa Amarilys, CYLINDER PRESS FEEDER-C CYLINDER PRESS FEEDER-Cande Magallon RN RN ss Pritesh Thorpe RN RN jb4 Jarrell Gunderson MD MD Corrections: (The following items were deleted from the chart) 01/05 20:20 19:28 01/05/2019 19:28 Discharged to Home. Impression: 15 weeks gestation of . jb4 Condition is Stable. Forms are Medication Reconciliation Form, Thank You Letter, Antibiotic Education, Prescription Opioid Use. Follow up: Emergency Department; When: As needed; Reason: Worsening of condition. Follow up: Private Physician; When: 2 - 3 days; Reason: Recheck today's complaints, Continuance of care, Re-evaluation by your physician. kb
--- NOTE | 2019-01-05 19:29 | ER ---
Nurse's Notes [facility] Name: Nay An Age: 23 yrs Sex: Female : 1995 Arrival Date: 01/05/2019 Time: 16:16 Bed 15 Private MD: Diagnosis: 15 weeks gestation of Presentation: 01/05 16:19 Presenting complaint: Patient states: "When I went to the restroom 30 minutes ago, I ss wiped and there was a little blood." Pt reports she is 15 weeks and noticed light pink blood with two very small clots. Denies pain. Transition of care: patient was not received from another setting of care. Onset of symptoms was January 05, 2019. Risk Assessment: Do you want to hurt yourself or someone else? Patient reports no desire to harm self or others. Initial Sepsis Screen: Does the patient meet any 2 criteria? No. Patient's initial sepsis screen is negative. Does the patient have a suspected source of infection? No. Patient's initial sepsis screen is negative. Care prior to arrival: None. 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 - Social history:: Smoking status: Patient/guardian denies using tobacco. - Ebola Screening: : Patient denies exposure to infectious person Patient denies travel to an Ebola-affected area in the 21 days before illness onset. Screenin:15 Abuse screen: Denies threats or abuse. Nutritional screening: No deficits noted. rb1 Tuberculosis screening: No symptoms or risk factors identified. Fall Risk None identified. Assessment: 17:15 General: Appears in no apparent distress. comfortable, Behavior is calm, cooperative, rb1 Denies fever, feeling ill. Pain: Denies pain. Neuro: Level of Consciousness is awake, alert, obeys commands, Oriented to person, place, time, situation. Cardiovascular: Capillary refill < 3 seconds is brisk in bilateral fingers. Respiratory: Airway is patent Respiratory effort is even, unlabored, Respiratory pattern is regular, symmetrical. GI: No signs and/or symptoms were reported involving the gastrointestinal system. : Urine is clear, yellow colored Reports vaginal bleeding that is light flow, [place] discharge. Derm: Skin is dry, Skin is normal, Skin temperature is warm. 18:35 Reassessment: Patient appears in no apparent distress at this time. No changes from rb1 previously documented assessment. Patient denies pain at this time. 19:05 Reassessment: Patient appears in no apparent distress at this time. Patient and/or jb4 family updated on plan of care and expected duration. Pain level reassessed. Patient is alert, oriented x 3, equal unlabored respirations, skin warm/dry/pink. Pt has guest at the bediside. Patient denies pain at this time. 20:00 Reassessment: Patient appears in no apparent distress at this time. Patient and/or jb4 family updated on plan of care and expected duration. Pain level reassessed. Patient is alert, oriented x 3, equal unlabored respirations, skin warm/dry/pink. Vital Signs: 16:21 BP 128 / 75; Pulse 95; Resp 15; Temp 98.3(TE); Pulse Ox 99% on R/A; Weight 57.15 kg; ss Height 5 ft. 3 in. (160.02 cm); Pain 0/10; 18:31 BP 113 / 66; Pulse 78; Resp 15; Pulse Ox 100% on R/A; Pain 0/10; rb1 19:05 BP 113 / 77; Pulse 89; Resp 16; Pulse Ox 100% on R/A; jb4 20:00 BP 109 / 71; Pulse 71; Resp 16; Pulse Ox 100% on R/A; jb4 16:21 Body Mass Index 22.32 (57.15 kg, 160.02 cm) ED Course: 16:16 Patient arrived in ED. mr 16:20 Triage completed. ss 16:21 Arm band placed on right wrist. ss 16:49 Amarilys Vigil FNP-C is PHCP. kb 16:49 Jarrell Gunderson MD is Attending Physician. kb 17:14 Stella Ng, JASWINDER is Primary Nurse. rb1 17:15 Patient has correct armband on for positive identification. Bed in low position. Call rb1 light in reach. Side rails up X 1. Pulse ox on. NIBP on. 17:22 Initial lab(s) drawn, by me, sent to lab. Inserted saline lock: 22 gauge in right 3 antecubital area, using aseptic technique. Blood collected. 17:42 Urine collected: clean catch specimen, clear. 3 19:00 Report given to JASWINDER Salas. rb1 19:11 Ultrasound completed. Patient tolerated well. sg3 19:11 OB Limited US In Process Unspecified. EDMS 20:00 No provider procedures requiring assistance completed. IV discontinued, intact, jb4 bleeding controlled, No redness/swelling at site. Pressure dressing applied. Administered Medications: No medications were administered Outcome: 19:28 Discharge ordered by . kb 20:00 Discharged to home ambulatory, with friend. jb4 20:00 Condition: stable 20:00 Discharge instructions given to patient, friend, Instructed on discharge instructions, follow up and referral plans. Demonstrated understanding of instructions, follow-up care. 20:20 Patient left the ED. jb4 Signatures: Dispatcher [employer] EDWV Amarilys Vigil, SHOE PLANNER-C SHOE PLANNER-Nettie Rg mr Cande Arguelles, RN RN Stella Oreilly, RN RN Pritesh Gomez RN RN jb4 Sommer Rosado [facility] Marcella Boothe 3
--- NOTE | 2019-01-05 19:34 | RAD REPORT ---
EXAM DESCRIPTION: US - OB Limited - 01/05/2019 7:14 pm CLINICAL HISTORY: with vaginal bleeding COMPARISON: October 2018 FINDINGS: Single live intrauterine is in breech presentation. Placenta is anterior. It is not low lying. A retroplacental/subchorionic bleed is not present. Amniotic fluid is within normal limits. Cardiac activity 149 beats per minute. Cervix 5 centimeters HC 11.7 centimeters 15 weeks 5 days HC 9.7 centimeters 15 weeks 6 days FL 1.9 centimeters 15 weeks 4 days Estimated weight 130 grams IMPRESSION: Single live intrauterine in breech presentation Estimated gestational age 15 weeks 5 days BRITNEY 06/24/2019 If a survey is desired it should be performed in about 3 weeks
[2019-01-05 20:48] LABS: Urine Blood 1+ (NEG); Urine Glucose NEGATIVE (NEG); Urine Protein NEGATIVE (NEG); Urine Specific Gravity 1.025 (1.005-1.030); Urine pH 6.5 (5.0-7.0)
== END 2019-01-05 20:20 | disposition home or self-care (01) ==
LOC: ER 16:12
DX: O26.852 Spotting complicating pregnancy, second trimester (principal); Z3A.15 15 weeks gestation of pregnancy
CPT/HCPCS: 36415; 76815; 80048; 81003; 81025; 84702; 85025; 86900; 86901; 99284

== ENCOUNTER 2019-01-27 06:23 | Emergency (ER) | payer OTHER ==
[2019-01-27 06:50] LABS: Urine Blood NEGATIVE (NEG); Urine Glucose NEGATIVE (NEG); Urine Protein NEGATIVE (NEG); Urine Specific Gravity 1.025 (1.005-1.030); Urine pH 6.5 (5.0-7.0)
[2019-01-27 07:11] LABS: Urine Bacteria 20-50 /HPF (<20); Urine Culture Reflex Order REFLEXED; Urine Mucus 2+ /HPF (NONE SEEN); Urine RBC <5 /HPF (NONE SEEN)
--- NOTE | 2019-01-27 07:14 | ER ---
Nurse's Notes [facility] Name: Nay An Age: 23 yrs Sex: Female : 1995 Arrival Date: 01/27/2019 Time: 06:27 Bed 15 Private MD: Diagnosis: Urinary tract infection, site not specified;18 weeks gestation of Presentation: 01/27 06:35 Presenting complaint: Patient states: sudden lower abdominal pain radiates to back. rr5 started last night. pain score of 6/10. denies any vaginal discharge. Transition of care: patient was not received from another setting of care. Onset of symptoms was January 27, 2019. Risk Assessment: Do you want to hurt yourself or someone else? Patient reports no desire to harm self or others. Initial Sepsis Screen: Does the patient meet any 2 criteria? No. Patient's initial sepsis screen is negative. Does the patient have a suspected source of infection? No. Patient's initial sepsis screen is negative. Care prior to arrival: None. 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 - Social history:: Smoking status: Patient/guardian denies using tobacco, Patient/guardian denies using alcohol, street drugs. - Ebola Screening: : Patient negative for fever greater than or equal to 101.5 degrees Fahrenheit, and additional compatible Ebola Virus Disease symptoms Patient denies exposure to infectious person Patient denies travel to an Ebola-affected area in the 21 days before illness onset. Screenin:48 Abuse screen: Denies threats or abuse. Denies injuries from another. Nutritional rr5 screening: No deficits noted. Tuberculosis screening: No symptoms or risk factors identified. Fall Risk None identified. Total Levin Fall Scale indicates No Risk (0-24 pts). Assessment: 06:39 General: Appears in no apparent distress. uncomfortable, Behavior is calm, cooperative, rr5 appropriate for age. Pain: Complains of pain in right lower quadrant and left lower quadrant Pain radiates to back Pain currently is 6 out of 10 on a pain scale. Quality of pain is described as aching, Pain began gradually, Is intermittent. Neuro: Level of Consciousness is awake, alert, obeys commands, Oriented to person, place, time, situation. Cardiovascular: Capillary refill < 3 seconds Patient's skin is warm and dry. Respiratory: Airway is patent Respiratory effort is even, unlabored, Respiratory pattern is regular, symmetrical. GI: Abdomen is round Bowel sounds present X 4 quads. 18 weeks Reports lower abdominal pain. : Reports 18 weeks Denies vaginal bleeding. EENT: No signs and/or symptoms were reported regarding the EENT system. Derm: Skin is intact, Skin temperature is warm. Musculoskeletal: Capillary refill < 3 seconds, Range of motion: intact in all extremities. Vital Signs: 06:37 BP 122 / 89; Pulse 82; Resp 17; Temp 98.2; Pulse Ox 100% ; Weight 57.15 kg; Height 5 rr5 ft. 3 in. (160.02 cm); Pain 6/10; 06:53 BP 109 / 65; Pulse 66; Resp 16; Pulse Ox 100% ; rr5 06:37 Body Mass Index 22.32 (57.15 kg, 160.02 cm) rr5 Vitals: 06:48 Heart Tones 136 bpm. rr5 ED Course: 06:27 Patient arrived in ED. do 06:29 Amar[facility]ys [facility]igil [facility] kb 06:29 Justin Hyde MD is Attending Physician. kb 06:35 Christian Galaviz RN is Primary Nurse. rr5 06:35 Urine collected: clean catch specimen. rr5 06:37 Triage completed. rr5 06:39 Arm band placed on. rr5 06:40 Patient has correct armband on for positive identification. Bed in low position. Call rr5 light in reach. Side rails up X2. Pulse ox on. NIBP on. 07:26 No provider procedures requiring assistance completed. Patient did not have IV access jl7 during this emergency room visit. Administered Medications: 07:25 Drug: Macrobid 100 mg Route: PO; jl7 07:25 Follow up: Response: Medication administered at discharge. jl7 Outcome: 07:13 Discharge ordered by . chastity 07:26 Discharged to home ambulatory. jl7 07:26 Condition: stable 07:26 Discharge instructions given to patient, Instructed on discharge instructions, follow up and referral plans. medication usage, Demonstrated understanding of instructions, follow-up care, medications, Prescriptions given X 1. 07:26 Patient left the ED. jl7 Signatures: Amarilys Vigil, CONCRETE FINISHING MACHINE OPERATOR-C CONCRETE FINISHING MACHINE OPERATOR-Ckb Destiney Lowery Jahala RN RN jl7 Christian Galaviz RN RN rr5
--- NOTE | 2019-01-27 07:14 | EDPHYS ---
Physician Documentation [facility] Name: Nay An Age: 23 yrs Sex: Female : 1995 Arrival Date: 01/27/2019 Time: 06:27 Bed 15 Private MD: ED Physician Justin Hyde HPI: 01/27 06:45 This 23 yrs old Female presents to ER via Ambulatory with complaints of kb Abdominal Pain, Back Pain, 18 Weeks . 06:45 The estimated gestational age is 18 weeks. course: care: at a clinic, Leakage of Fluid: none appreciated, Ultrasound: the patient had an ultrasound, which was normal. Previous pregnancies: the patient has never been . Associated signs and symptoms: Pertinent positives: abdominal pain. The patient has not experienced similar symptoms in the past. The patient has not recently seen a physician. Pt reports lower abd pain and low back pain that started last night. Denies vaginal bleeding. IUP confirmed, normal US done here 3 weeks ago. . 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 - Social history:: Smoking status: Patient/guardian denies using tobacco, Patient/guardian denies using alcohol, street drugs. - Ebola Screening: : Patient negative for fever greater than or equal to 101.5 degrees Fahrenheit, and additional compatible Ebola Virus Disease symptoms Patient denies exposure to infectious person Patient denies travel to an Ebola-affected area in the 21 days before illness onset. ROS: 06:43 Constitutional: Negative for fever, chills, and weight loss, Cardiovascular: Negative kb for chest pain, palpitations, and edema, Respiratory: Negative for shortness of breath, cough, wheezing, and pleuritic chest pain, : Negative for injury, bleeding, discharge, and swelling, MS/Extremity: Negative for injury and deformity, Skin: Negative for injury, rash, and discoloration, Neuro: Negative for headache, weakness, numbness, tingling, and seizure. 06:43 Abdomen/GI: Positive for abdominal pain, Negative for nausea, vomiting, and diarrhea. 06:43 Back: Positive for pain at rest, of the low back area. Exam: 06:43 Constitutional: This is a well developed, well nourished patient who is awake, alert, kb and in no acute distress. Head/Face: Normocephalic, atraumatic. Chest/axilla: Normal chest wall appearance and motion. Nontender with no deformity. No lesions are appreciated. Cardiovascular: Regular rate and rhythm with a normal S1 and S2. No gallops, murmurs, or rubs. Normal PMI, no JVD. No pulse deficits. Respiratory: Lungs have equal breath sounds bilaterally, clear to auscultation and percussion. No rales, rhonchi or wheezes noted. No increased work of breathing, no retractions or nasal flaring. Back: No spinal tenderness. No costovertebral tenderness. Full range of motion. Skin: Warm, dry with normal turgor. Normal color with no rashes, no lesions, and no evidence of cellulitis. MS/ Extremity: Pulses equal, no cyanosis. Neurovascular intact. Full, normal range of motion. Neuro: Awake and alert, GCS 15, oriented to person, place, time, and situation. Cranial nerves II-XII grossly intact. Motor strength 5/5 in all extremities. Sensory grossly intact. Cerebellar exam normal. Normal gait. 06:43 Abdomen/GI: Inspection: gravid appearance, is noted. Vital Signs: 06:37 BP 122 / 89; Pulse 82; Resp 17; Temp 98.2; Pulse Ox 100% ; Weight 57.15 kg; Height 5 rr5 ft. 3 in. (160.02 cm); Pain 6/10; 06:53 BP 109 / 65; Pulse 66; Resp 16; Pulse Ox 100% ; rr5 06:37 Body Mass Index 22.32 (57.15 kg, 160.02 cm) rr5 MDM: 06:30 Patient medically screened. kb 06:44 Data reviewed: vital signs, nurses notes. Data interpreted: Pulse oximetry: on room air kb is 100 %. Interpretation: normal. 07:12 Counseling: I had a detailed discussion with the patient and/or guardian regarding: the kb historical points, exam findings, and any diagnostic results supporting the discharge/admit diagnosis, lab results, the need for outpatient follow up, an OB/Gyne specialist, to return to the emergency department if symptoms worsen or persist or if there are any questions or concerns that arise at home. 01/27 06:42 Order name: Urine Dipstick--Ancillary (enter results); Complete Time: 06:54 kb 01/27 06:42 Order name: Urine Microscopic Only; Complete Time: 07:12 kb 01/27 06:42 Order name: FHT's; Complete Time: 06:44 kb 01/27 07:12 Order name: Urine Culture EDMS Administered Medications: 07:25 Drug: Macrobid 100 mg Route: PO; jl7 07:25 Follow up: Response: Medication administered at discharge. jl7 Disposition: 01/28 01:39 Co-signature as Attending Physician, Justin Hyde MD. rn Disposition: 01/27/19 07:13 Discharged to Home. Impression: Urinary tract infection, site not specified, 18 weeks gestation of . - Condition is Stable. - Discharge Instructions: and Urinary Tract Infection, Second Trimester of , [id number]. - Prescriptions for Macrobid 100 mg Oral Capsule - take 1 capsule by ORAL route every 12 hours for 5 days; 10 capsule. - Medication Reconciliation Form, Thank You Letter, Antibiotic Education, Prescription Opioid Use form. - Follow up: Emergency Department; When: As needed; Reason: Worsening of condition. Follow up: Private Physician; When: 2 - 3 days; Reason: Recheck today's complaints, Continuance of care, Re-evaluation by your physician. Signatures: Dispatcher [employer] EDIN Amarilys Vigil, ANANDA-C LIVESTOCK NUTRITION TERRITORY MANAGER-Justin Schmidt MD MD rn Leal, Jahala, RN RN jl7 Christian Galaviz RN RN rr5 Corrections: (The following items were deleted from the chart) 01/27 07:26 07:13 01/27/2019 07:13 Discharged to Home. Impression: Urinary tract infection, site jl7 not specified; 18 weeks gestation of . Condition is Stable. Forms are Medication Reconciliation Form, Thank You Letter, Antibiotic Education, Prescription Opioid Use. Follow up: Emergency Department; When: As needed; Reason: Worsening of condition. Follow up: Private Physician; When: 2 - 3 days; Reason: Recheck today's complaints, Continuance of care, Re-evaluation by your physician. kb
[2019-01-27] MEDS ORDERED: NITROFURAN MACRO 100 MG CAP PO ONE (07:30)
== END 2019-01-27 07:26 | disposition home or self-care (01) ==
LOC: ER 06:23
DX: O23.42 Unspecified infection of urinary tract in pregnancy, second trimester (principal); Z3A.18 18 weeks gestation of pregnancy
CPT/HCPCS: 81003; 81015; 87086; 87088; 99284

== ENCOUNTER 2019-02-23 13:48 | Emergency (ER) | payer OTHER ==
[2019-02-23 14:17] LABS: Urine Blood NEGATIVE (NEG); Urine Glucose NEGATIVE (NEG); Urine Protein 1+ (NEG); Urine Specific Gravity 1.025 (1.005-1.030); Urine pH 6.5 (5.0-7.0)
[2019-02-23 14:27] LABS: Urine Bacteria 20-50 /HPF (<20); Urine Culture Reflex Order REFLEXED; Urine Mucus 2+ /HPF (NONE SEEN); Urine RBC <5 /HPF (NONE SEEN)
[2019-02-23] MEDS ORDERED: NA CHLORIDE 0.9% 1,000 ML ONE (14:42)
[2019-02-23 14:49] LABS: Absolute Lymphocytes (CBC) 1.4 K/uL (0.7-4.9); Absolute Monocytes 0.6 K/uL (0.1-1.3); Absolute Neutrophil 9.3 K/uL (1.8-8.0); Basophils % 0.2 % (0-1.3); Eosinophils % 0.4 % (0-4.4); Hematocrit 33.9 % (36.0-45.0); Lymphocytes % 12.1 % (15.3-44.8); MPV 10.2 fL (7.6-11.3); Monocytes % 5.3 % (3.3-12.3); RBC Red Blood Cell Count 4.09 M/uL (3.86-4.86)
[2019-02-23 14:57] LABS: BUN Blood Urea Nitrogen 8 mg/dL (7-18); Bicarbonate 23 mmol/L (21-32); Glucose Level 99 mg/dL (74-106); Potassium 3.3 mmol/L (3.5-5.1); Sodium Level 138 mmol/L (136-145)
--- NOTE | 2019-02-23 15:34 | EDPHYS ---
Physician Documentation [facility] Name: Nay An Age: 23 yrs Sex: Female : 1995 Arrival Date: 02/23/2019 Time: 13:51 Bed 19 Private MD: ED Physician Justin Hyde HPI: 02/23 14:40 This 23 yrs old Female presents to ER via Ambulatory with complaints of 22 wks pm1 , Vision Problem, Dizziness. 16:58 The patient presents with dizziness, sense of spinning. Onset: The symptoms/episode pm1 began/occurred 3 day(s) ago. Context: occurred at home, just prior to the episode the patient experienced no apparent symptoms. Modifying factors: The symptoms are alleviated by closing eyes, holding head still. Associated signs and symptoms: Pertinent positives: , Pertinent negatives: abdominal pain, chest pain, headache, numbness, palpitations, shortness of breath, tingling. Severity of symptoms: in the emergency department the symptoms have improved. Patient's baseline: Neuro: alert and fully oriented, Motor: no deficits, Ambulation: walks without assistance, Speech: normal. The patient has not experienced similar symptoms in the past. The patient has not recently seen a physician. 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 - Social history:: Smoking status: Patient/guardian denies using tobacco. - Ebola Screening: : No symptoms or risks identified at this time. ROS: 16:58 Constitutional: Negative for fever, chills, and weight loss, Eyes: Negative for injury, pm1 pain, redness, and discharge, ENT: Negative for injury, pain, and discharge, Neck: Negative for injury, pain, and swelling, Cardiovascular: Negative for chest pain, palpitations, and edema, Respiratory: Negative for shortness of breath, cough, wheezing, and pleuritic chest pain, Abdomen/GI: Negative for abdominal pain, nausea, vomiting, diarrhea, and constipation, Back: Negative for injury and pain, : Negative for injury, bleeding, discharge, and swelling, MS/Extremity: Negative for injury and deformity, Skin: Negative for injury, rash, and discoloration. 16:58 Neuro: Positive for dizziness, Negative for headache, numbness, tingling, weakness. Exam: 14:40 Constitutional: This is a well developed, well nourished patient who is awake, alert, pm1 and in no acute distress. Head/Face: Normocephalic, atraumatic. Eyes: Pupils equal round and reactive to light, extra-ocular motions intact. Lids and lashes normal. Conjunctiva and sclera are non-icteric and not injected. Cornea within normal limits. Periorbital areas with no swelling, redness, or edema. ENT: Nares patent. No nasal discharge, no septal abnormalities noted. Tympanic membranes are normal and external auditory canals are clear. Oropharynx with no redness, swelling, or masses, exudates, or evidence of obstruction, uvula midline. Mucous membranes moist. Neck: Trachea midline, no thyromegaly or masses palpated, and no cervical lymphadenopathy. Supple, full range of motion without nuchal rigidity, or vertebral point tenderness. No Meningismus. Chest/axilla: Normal chest wall appearance and motion. Nontender with no deformity. No lesions are appreciated. Cardiovascular: Regular rate and rhythm with a normal S1 and S2. No gallops, murmurs, or rubs. Normal PMI, no JVD. No pulse deficits. Respiratory: Lungs have equal breath sounds bilaterally, clear to auscultation and percussion. No rales, rhonchi or wheezes noted. No increased work of breathing, no retractions or nasal flaring. 14:40 Back: No spinal tenderness. No costovertebral tenderness. Full range of motion. Skin: Warm, dry with normal turgor. Normal color with no rashes, no lesions, and no evidence of cellulitis. MS/ Extremity: Pulses equal, no cyanosis. Neurovascular intact. Full, normal range of motion. 14:40 Abdomen/GI: Inspection: gravid appearance, is noted, Bowel sounds: normal, Palpation: abdomen is soft and non-tender. 14:40 Neuro: Orientation: is normal, Mentation: is normal, Motor: is normal, moves all fours, Sensation: is normal, no obvious gross deficits, Gait: is steady, at a normal pace, without difficulty, Positive Saad Gasca Morris maneuver. Patient reports dizziness is stronger with head tilted posteriorly and to the right than the left. Patient with dizziness following light movement along cardinal gaze. Vestibular nystagmus present . Vital Signs: 13:57 BP 144 / 79; Pulse 72; Resp 16; Temp 98.5; Pulse Ox 98% on R/A; Weight 58.97 kg; Height la1 5 ft. 3 in. (160.02 cm); Pain 0/10; 14:09 BP 125 / 77; Pulse 79; Resp 18; Pulse Ox 99% on R/A; em 14:45 BP 108 / 65; Pulse 78; Resp 18; Pulse Ox 99% on R/A; Pain 0/10; em 16:00 BP 116 / 74; Pulse 81; Resp 18; Pulse Ox 100% on R/A; em 13:57 Body Mass Index 23.03 (58.97 kg, 160.02 cm) la1 MDM: 14:03 Patient medically screened. pm1 15:24 Data reviewed: vital signs. Data interpreted: Pulse oximetry: on room air is 99 %. pm1 Interpretation: normal. Counseling: I had a detailed discussion with the patient and/or guardian regarding: the historical points, exam findings, and any diagnostic results supporting the discharge/admit diagnosis, lab results, the need for outpatient follow up, to return to the emergency department if symptoms worsen or persist or if there are any questions or concerns that arise at home. 15:25 Differential diagnosis: UTI, BPV, eclampsia , dehydration. pm1 15:35 ED course: Patient's vertigo resolved with IV fluid infusion. pm1 02/23 14:07 Order name: Urine Microscopic Only iw 02/23 14:11 Order name: Urine Dipstick--Ancillary (enter results); Complete Time: 14:18 eb 02/23 14:11 Order name: Urine --Ancillary (enter results); Complete Time: 14:18 eb 02/23 14:21 Order name: Basic Metabolic Panel; Complete Time: 14:57 pm1 02/23 14:21 Order name: CBC with Diff; Complete Time: 14:56 pm1 02/23 14:29 Order name: Urine Culture EDMS 02/23 14:21 Order name: IV Saline Lock; Complete Time: 14:39 pm1 05/11 14:21 Order name: Labs collected and sent; Complete Time: 14:39 pm1 Administered Medications: 14:39 Drug: NS 0.9% 1000 ml Route: IV; Rate: 1000 ml; Site: right antecubital; em 15:50 Follow up: IV Status: Completed infusion; IV Intake: 1000ml em 15:42 Drug: Rocephin 1 grams Route: IV; Rate: calculated rate; Site: right antecubital; iw 16:14 Follow up: Response: No adverse reaction; IV Status: Completed infusion; IV Intake: 10mlem Disposition: 16:58 Co-signature as Attending Physician, Justin Hyde MD. rn Disposition: 02/23/19 15:33 Discharged to Home. Impression: Urinary tract infection, site not specified, Benign paroxysmal vertigo. - Condition is Stable. - Discharge Instructions: Benign Positional Vertigo, and Urinary Tract Infection. - Prescriptions for Macrobid 100 mg Oral Capsule - take 1 capsule by ORAL route every 12 hours for 10 days; 20 capsule. - Medication Reconciliation Form, Thank You Letter, Antibiotic Education, Prescription Opioid Use form. - Follow up: Emergency Department; When: As needed; Reason: Worsening of condition. Follow up: Private Physician; When: 2 - 3 days; Reason: Recheck today's complaints, Continuance of care, Re-evaluation by your physician. - Problem is new. - Symptoms have improved. Signatures: Dispatcher [employer] EDPrice Valencia, WILDLIFE CONSERVATION OFFICER WILDLIFE CONSERVATION OFFICER em Zaynab Julio, Justin Burris RN, MD MD rn Attema, Lee, RN RN [email or web address] Rafael Johns, NIP WRAPPER NIP WRAPPER pm1 Corrections: (The following items were deleted from the chart) 16:15 15:33 02/23/2019 15:33 Discharged to Home. Impression: Urinary tract infection, site em not specified; Benign paroxysmal vertigo. Condition is Stable. Forms are Medication Reconciliation Form, Thank You Letter, Antibiotic Education, Prescription Opioid Use. Follow up: Emergency Department; When: As needed; Reason: Worsening of condition. Follow up: Private Physician; When: 2 - 3 days; Reason: Recheck today's complaints, Continuance of care, Re-evaluation by your physician. Problem is new. Symptoms have improved. pm1
--- NOTE | 2019-02-23 15:34 | ER ---
Nurse's Notes [facility] Name: Nay An Age: 23 yrs Sex: Female : 1995 Arrival Date: 02/23/2019 Time: 13:51 Bed 19 Private MD: Diagnosis: Urinary tract infection, site not specified;Benign paroxysmal vertigo Presentation: 02/23 13:56 Presenting complaint: Patient states: For the last three days I have been feeling la1 shaky, lightheaded, and some times I see spots. Transition of care: patient was not received from another setting of care. Onset of symptoms was February 23, 2019. Risk Assessment: Do you want to hurt yourself or someone else? Patient reports no desire to harm self or others. Initial Sepsis Screen: Does the patient meet any 2 criteria? No. Patient's initial sepsis screen is negative. Does the patient have a suspected source of infection? No. Patient's initial sepsis screen is negative. Care prior to arrival: None. 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 - Social history:: Smoking status: Patient/guardian denies using tobacco. - Ebola Screening: : No symptoms or risks identified at this time. Screenin:05 Abuse screen: Denies threats or abuse. Nutritional screening: No deficits noted. em Tuberculosis screening: No symptoms or risk factors identified. Fall Risk None identified. Assessment: 14:05 General: Appears in no apparent distress. comfortable, Behavior is calm, cooperative, em Denies fever. Pain: Denies pain. Neuro: Level of Consciousness is awake, alert, obeys commands, Oriented to person, place, time, situation, Tracer Lathe Set Up Operator are equal bilaterally Moves all extremities. Gait is steady, Speech is normal, Facial symmetry appears normal, Pupils are PERRLA, Intact Reports dizziness, Denies weakness difficulty swallowing, paresthesias numbness. Cardiovascular: Capillary refill < 3 seconds Patient's skin is warm and dry. Respiratory: Airway is patent Respiratory effort is even, unlabored, Respiratory pattern is regular, symmetrical. GI: Abdomen is round Patient currently denies nausea, vomiting. : Denies burning with urination, urinary frequency. EENT: Oral mucosa is moist. Throat is clear is pink. Derm: Skin is intact, is healthy with good turgor, Skin is pink, warm \T\ dry. Musculoskeletal: Capillary refill < 3 seconds, Range of motion: intact in all extremities. 14:20 Reassessment: Patient appears in no apparent distress at this time. No changes from iw previously documented assessment. I agree with above assessment by Price Garland LVN. 15:00 Reassessment: Patient appears in no apparent distress at this time. Patient and/or em family updated on plan of care and expected duration. Pain level reassessed. Patient is alert, oriented x 3, equal unlabored respirations, skin warm/dry/pink. 16:00 Reassessment: Patient appears in no apparent distress at this time. Patient and/or em family updated on plan of care and expected duration. Pain level reassessed. Patient is alert, oriented x 3, equal unlabored respirations, skin warm/dry/pink. Patient denies pain at this time. Patient states feeling better. Patient states symptoms have improved. Vital Signs: 13:57 BP 144 / 79; Pulse 72; Resp 16; Temp 98.5; Pulse Ox 98% on R/A; Weight 58.97 kg; Height la1 5 ft. 3 in. (160.02 cm); Pain 0/10; 14:09 BP 125 / 77; Pulse 79; Resp 18; Pulse Ox 99% on R/A; em 14:45 BP 108 / 65; Pulse 78; Resp 18; Pulse Ox 99% on R/A; Pain 0/10; em 16:00 BP 116 / 74; Pulse 81; Resp 18; Pulse Ox 100% on R/A; em 13:57 Body Mass Index 23.03 (58.97 kg, 160.02 cm) la1 ED Course: 13:51 Patient arrived in ED. mr 13:57 Triage completed. la1 13:58 Arm band placed on right wrist. la1 13:59 Rafael Johns NP is PHCP. pm1 13:59 Justin Hyde MD is Attending Physician. pm1 14:03 Price Garland LVN is Primary Nurse. em 14:05 Patient has correct armband on for positive identification. Bed in low position. Call em light in reach. Adult w/ patient. 14:30 Initial lab(s) drawn, by me, sent to lab. Inserted saline lock: 20 gauge in right em antecubital area, using aseptic technique. Blood collected. 16:11 No provider procedures requiring assistance completed. IV discontinued, intact, em bleeding controlled, No redness/swelling at site. Pressure dressing applied. Administered Medications: 14:39 Drug: NS 0.9% 1000 ml Route: IV; Rate: 1000 ml; Site: right antecubital; em 15:50 Follow up: IV Status: Completed infusion; IV Intake: 1000ml em 15:42 Drug: Rocephin 1 grams Route: IV; Rate: calculated rate; Site: right antecubital; iw 16:14 Follow up: Response: No adverse reaction; IV Status: Completed infusion; IV Intake: 10mlem Intake: 15:50 IV: 1000ml; Total: 1000ml. em 16:14 IV: 10ml; Total: 1010ml. em Outcome: 15:33 Discharge ordered by MD. pm1 16:11 Discharged to home ambulatory, with family. em 16:11 Condition: good 16:11 Discharge instructions given to patient, Instructed on discharge instructions, follow up and referral plans. medication usage, Demonstrated understanding of instructions, follow-up care, medications, Prescriptions given X 1. 16:15 Patient left the ED. em Signatures: Nettie Moon JONAS Thrasher LVN em Zaynab Julio RN RN iw Henry Gonzales RN RN la1 Marinas, Patrick, NP HEAD MACHINIST pm1 Corrections: (The following items were deleted from the chart) 15:01 14:56 BP 163 / 64; Pulse 54bpm; Resp 18bpm; Pulse Ox 99% RA; Pain 0/10; em em
[2019-02-23] MEDS ORDERED: CEFTRIAXONE/SWI 1gm 1 GM/10 ML SYR ONE (15:50)
== END 2019-02-23 16:15 | disposition home or self-care (01) ==
LOC: ER 13:48
DX: O23.42 Unspecified infection of urinary tract in pregnancy, second trimester (principal); H81.10 Benign paroxysmal vertigo, unspecified ear; Z3A.22 22 weeks gestation of pregnancy
CPT/HCPCS: 36415; 80048; 81003; 81015; 81025; 85025; 87086; 87088; 96361; 96365; 99284; J0696; J7030

== ENCOUNTER 2019-03-31 22:58 | Emergency (ER) | payer OTHER ==
--- NOTE | 2019-04-01 00:06 | EDPHYS ---
Physician Documentation [facility] Name: Nay An Age: 23 yrs Sex: Female : 1995 Arrival Date: 03/31/2019 Time: 22:59 Bed 30 Private MD: ED Physician Del Cantu HPI: 04/01 00:22 This 23 yrs old Female presents to ER via Ambulatory with complaints of Back snw Pain. 00:22 The patient presents with pain that is acute, with no known mechanism of injury, snw radiates down left buttock with movement, sharp in nature. The symptoms are located in the low back. Location: left low back and left buttock. The problem was sustained from unknown cause. Severity of symptoms: At their worst the symptoms were moderate. The patient has experienced similar episodes in the past. for . Historical: - Allergies: 03/31 23:37 No Known Allergies; la1 - PMHx: 23:37 None; la1 - Immunization history:: Adult Immunizations up to date. - Social history:: Smoking status: unknown. - Ebola Screening: : No symptoms or risks identified at this time. ROS: 04/01 00:21 Constitutional: Negative for fever, chills, and weight loss, Eyes: Negative for injury, snw pain, redness, and discharge, ENT: Negative for injury, pain, and discharge, Neck: Negative for injury, pain, and swelling, Cardiovascular: Negative for chest pain, palpitations, and edema, Respiratory: Negative for shortness of breath, cough, wheezing, and pleuritic chest pain, Abdomen/GI: Negative for abdominal pain, nausea, vomiting, diarrhea, and constipation, : Negative for injury, bleeding, discharge, and swelling, MS/Extremity: Negative for injury and deformity, Skin: Negative for injury, rash, and discoloration, Neuro: Negative for headache, weakness, numbness, tingling, and seizure. Back: Positive for pain with movement, radiated pain, of the left low back, pt thinks post of piercing in causing the pain with movement, worse now 2nd to . Exam: 00:01 Constitutional: This is a well developed, well nourished patient who is awake, alert, snw and in no acute distress. Head/Face: Normocephalic, atraumatic. Eyes: Pupils equal round and reactive to light, extra-ocular motions intact. Lids and lashes normal. Conjunctiva and sclera are non-icteric and not injected. Cornea within normal limits. Periorbital areas with no swelling, redness, or edema. ENT: Nares patent. No nasal discharge, no septal abnormalities noted. Tympanic membranes are normal and external auditory canals are clear. Oropharynx with no redness, swelling, or masses, exudates, or evidence of obstruction, uvula midline. Mucous membranes moist. Neck: Trachea midline, no thyromegaly or masses palpated, and no cervical lymphadenopathy. Supple, full range of motion without nuchal rigidity, or vertebral point tenderness. No Meningismus. Chest/axilla: Normal chest wall appearance and motion. Nontender with no deformity. No lesions are appreciated. Cardiovascular: Regular rate and rhythm with a normal S1 and S2. No gallops, murmurs, or rubs. Normal PMI, no JVD. No pulse deficits. Respiratory: Lungs have equal breath sounds bilaterally, clear to auscultation and percussion. No rales, rhonchi or wheezes noted. No increased work of breathing, no retractions or nasal flaring. 00:01 MS/ Extremity: Pulses equal, no cyanosis. Neurovascular intact. Full, normal range of motion. Neuro: Awake and alert, GCS 15, oriented to person, place, time, and situation. Cranial nerves II-XII grossly intact. Motor strength 5/5 in all extremities. Sensory grossly intact. Cerebellar exam normal. Normal gait. 00:01 Abdomen/GI: Inspection: gravid appearance, is noted, Bowel sounds: normal. 00:01 Back: pain, that is moderate, down buttock on left with movement, CVA tenderness, is absent. 00:01 Skin: Appearance: normal except for affected area, piercing to left lower back with skin growth over the stud. 00:01 Neuro: Orientation: is normal, Mentation: is normal, Memory: is normal. Vital Signs: 03/31 23:37 BP 134 / 84; Pulse 84; Resp 16; Pulse Ox 98% on R/A; la1 MDM: 23:39 Patient medically screened. [facility] 04/01 00:22 Data reviewed: vital signs, nurses notes. Data interpreted: Pulse oximetry: on room air snw is 98 %. Interpretation: normal. Counseling: I had a detailed discussion with the patient and/or guardian regarding: the historical points, exam findings, and any diagnostic results supporting the discharge/admit diagnosis, the need for outpatient follow up, to return to the emergency department if symptoms worsen or persist or if there are any questions or concerns that arise at home. Special discussion: Based on the history and exam findings, there is no indication for further emergent testing or inpatient evaluation. I discussed with the patient/guardian the need to see the OB Gyne specialist for further evaluation of the symptoms. I discussed with the patient/guardian the need to see the primary care provider for further evaluation of the symptoms. Administered Medications: No medications were administered Disposition: 07:15 Co-signature as Attending Physician, Del Cantu MD I agree with the assessment and karen plan of care. Disposition: 04/01/19 00:04 Discharged to Home. Impression: Sciatica, left side. - Condition is Stable. - Discharge Instructions: Sciatica, Back Exercises, Khus-of-Vmhv, Cryotherapy, Heat Therapy, Radicular Pain. - Medication Reconciliation Form, Thank You Letter, Antibiotic Education, Prescription Opioid Use form. - Follow up: Private Physician; When: 2 - 3 days; Reason: Recheck today's complaints, Continuance of care, Re-evaluation by your physician. Follow up: Emergency Department; When: As needed; Reason: Worsening of condition. Signatures: Del Cantu MD MD cha Therrien, Shelly, ZINC MINER BLASTING-C ZINC MINER BLASTING-Csnw Henry Gonzales RN RN la1 Corrections: (The following items were deleted from the chart) 00:16 00:04 04/01/2019 00:04 Discharged to Home. Impression: Sciatica, left side. Condition la1 is Stable. Forms are Medication Reconciliation Form, Thank You Letter, Antibiotic Education, Prescription Opioid Use. Follow up: Private Physician; When: 2 - 3 days; Reason: Recheck today's complaints, Continuance of care, Re-evaluation by your physician. Follow up: Emergency Department; When: As needed; Reason: Worsening of condition. snw
--- NOTE | 2019-04-01 00:06 | ER ---
Nurse's Notes [facility] Name: Nay An Age: 23 yrs Sex: Female : 1995 Arrival Date: 03/31/2019 Time: 22:59 Bed 30 Private MD: Diagnosis: Sciatica, left side Presentation: 03/31 23:35 Presenting complaint: Patient states: I have a piercing in my back and the skin grew la1 over it. now that I am I feel like it is hitting a nerve of something and I want it out. Transition of care: patient was not received from another setting of care. Onset of symptoms was March 31, 2019. Risk Assessment: Do you want to hurt yourself or someone else? Patient reports no desire to harm self or others. Initial Sepsis Screen: Does the patient meet any 2 criteria? No. Patient's initial sepsis screen is negative. Does the patient have a suspected source of infection? No. Patient's initial sepsis screen is negative. Care prior to arrival: None. 23:35 Method Of Arrival: Ambulatory la1 23:35 Acuity: TRAMAINE 4 la1 Historical: - Allergies: 23:37 No Known Allergies; la1 - PMHx: 23:37 None; la1 - Immunization history:: Adult Immunizations up to date. - Social history:: Smoking status: unknown. - Ebola Screening: : No symptoms or risks identified at this time. Screenin:38 Abuse screen: Denies threats or abuse. Nutritional screening: No deficits noted. la1 Tuberculosis screening: No symptoms or risk factors identified. Fall Risk None identified. Assessment: 23:37 General: Appears in no apparent distress. Behavior is calm, cooperative. Neuro: Level la1 of Consciousness is awake, alert, obeys commands, Oriented to person, place, time, situation. Cardiovascular: Capillary refill < 3 seconds Patient's skin is warm and dry. Respiratory: Airway is patent Respiratory effort is even, unlabored, Respiratory pattern is regular, symmetrical. GI: No signs and/or symptoms were reported involving the gastrointestinal system. : No signs and/or symptoms were reported regarding the genitourinary system. Derm: Area of discolored skin to right lower lumbar area without redness swelling or drainage. Vital Signs: 23:37 BP 134 / 84; Pulse 84; Resp 16; Pulse Ox 98% on R/A; la1 ED Course: 22:59 Patient arrived in ED. am2 23:30 Henry Gonzales RN is Primary Nurse. la1 23:36 Triage completed. la1 23:37 Arm band placed on left wrist. la1 23:38 Call light in reach. la1 23:39 Missy Upton F[facility]-C [facility]. snw 23:39 Del Cantu MD is Attending Physician. snw 04/01 00:15 No provider procedures requiring assistance completed. Patient did not have IV access la1 during this emergency room visit. Administered Medications: No medications were administered Outcome: 00:04 Discharge ordered by . snw 00:16 Discharged to home ambulatory. la1 00:16 Condition: stable 00:16 Discharge instructions given to patient, Instructed on discharge instructions, follow up and referral plans. medication usage, Demonstrated understanding of instructions, follow-up care, medications, Prescriptions given X 00:16 Patient left the ED. la1 Signatures: Missy Upton FNP-C [employer]-Csnw Henry Gonzales RN RN la1 Kenisha Castillo am2
== END 2019-04-01 00:16 | disposition home or self-care (01) ==
LOC: ER 22:58
DX: M54.32 Sciatica, left side (principal)
CPT/HCPCS: 99281

== ENCOUNTER 2019-08-10 02:37 | Emergency (ER) | payer OTHER ==
[2019-08-10] MEDS ORDERED: ONDANSETRON 4 MG (ODT) TAB ONE (02:57)
--- NOTE | 2019-08-10 03:01 | ER ---
Nurse's Notes [facility] Name: Nay An Age: 24 yrs Sex: Female : 1995 Arrival Date: 08/10/2019 Time: 02:40 Bed 7 Private MD: Diagnosis: Vomiting;Nausea;Urinary tract infection, site not specified Presentation: 08/10 02:58 Presenting complaint: Patient states: "I have been feeling very nauseous and dry jd3 heaving. I had a blood transfusion when I had my son and they told me to keep an eye on it because I might get to be anemic again so I don't know if this has anything to do with that or if it was just something I ate.". Transition of care: patient was not received from another setting of care. Onset of symptoms was August 09, 2019. Risk Assessment: Do you want to hurt yourself or someone else? Patient reports no desire to harm self or others. Initial Sepsis Screen: Does the patient meet any 2 criteria? No. Patient's initial sepsis screen is negative. Does the patient have a suspected source of infection? No. Patient's initial sepsis screen is negative. Care prior to arrival: None. 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 - Social history:: Smoking status: Patient/guardian denies using tobacco, the patient reports quitting approximately 1 years ago. - Family history:: not pertinent. - Ebola Screening: : Patient negative for fever greater than or equal to 101.5 degrees Fahrenheit, and additional compatible Ebola Virus Disease symptoms. Screenin:04 Abuse screen: Denies threats or abuse. Nutritional screening: No deficits noted. jd3 Tuberculosis screening: No symptoms or risk factors identified. Fall Risk Ambulatory Aid- None/Bed Rest/Nurse Assist (0 pts). Gait- Normal/Bed Rest/Wheelchair (0 pts) Mental Status- Oriented to own ability (0 pts). Total Levin Fall Scale indicates No Risk (0-24 pts). Assessment: 03:03 General: Appears in no apparent distress. comfortable, Behavior is calm, cooperative, jd3 appropriate for age. Pain: Denies pain. Neuro: Level of Consciousness is awake, alert, obeys commands, Oriented to person, place, time, situation. Cardiovascular: Denies chest pain, Capillary refill < 3 seconds Patient's skin is warm and dry. Respiratory: Airway is patent Respiratory effort is even, unlabored, Respiratory pattern is regular, symmetrical, Denies cough, shortness of breath. GI: Abdomen is round non-distended, Abd is soft and non tender X 4 quads. Reports nausea, Patient currently denies abdominal pain, diarrhea. : No signs and/or symptoms were reported regarding the genitourinary system. EENT: No signs and/or symptoms were reported regarding the EENT system. Derm: Skin is intact, is healthy with good turgor, Skin is dry, Skin is normal, Skin temperature is warm. Musculoskeletal: Circulation, motion, and sensation intact. Range of motion: intact in all extremities. 03:43 Reassessment: Patient appears in no apparent distress at this time. Patient and/or jd3 family updated on plan of care and expected duration. Pain level reassessed. Patient is alert, oriented x 3, equal unlabored respirations, skin warm/dry/pink. Patient denies pain at this time. Patient states feeling better. Vital Signs: 02:58 BP 132 / 84 Supine; Pulse 104; jd3 03:00 BP 139 / 92 Sitting; Pulse 112; jd3 03:02 BP 121 / 90; Pulse 107; Resp 16 S; Temp 98.1(O); Pulse Ox 98% on R/A; Weight 63.5 kg jd3 (R); Height 5 ft. 3 in. (160.02 cm) (R); Pain 0/10; 03:02 BP 121 / 90 Standing; Pulse 107; jd3 03:02 Body Mass Index 24.80 (63.50 kg, 160.02 cm) jd3 ED Course: 02:40 Patient arrived in ED. ag3 02:51 Del Cantu MD is Attending Physician. karen 02:55 Dario Sellers RN is Primary Nurse. jd3 03:00 Triage completed. jd3 03:03 Arm band placed on. jd3 03:04 Patient has correct armband on for positive identification. Bed in low position. Call ashlie light in reach. Side rails up X 1. Adult w/ patient. 03:09 Del Barone PA is PHCP. petty 03:43 No provider procedures requiring assistance completed. Patient did not have IV access jd3 during this emergency room visit. Administered Medications: 03:00 Drug: Zofran 4 mg Route: PO; jd3 03:44 Follow up: Response: No adverse reaction jd3 03:25 Drug: Rocephin (cefTRIAXone) 1 grams Route: IM; Site: right gluteus; jd3 03:44 Follow up: Response: No adverse reaction jd3 03:25 Drug: Bactrim (160 mg-800 mg (DS) 1 tablet Route: PO; jd3 03:44 Follow up: Response: No adverse reaction jd3 Outcome: 03:00 Discharge ordered by . karen 03:43 Discharged to home ambulatory, with family. jd3 03:43 Condition: stable 03:43 Discharge instructions given to patient, family, Instructed on discharge instructions, follow up and referral plans. medication usage, Demonstrated understanding of instructions, follow-up care, medications, Prescriptions given X 2. 03:44 Patient left the ED. jd3 Signatures: Del Cantu MD MD cha Page, Corey, PA PA cp Davies, Jonathon RN RN jBelén Rodriguez ag3
--- NOTE | 2019-08-10 03:01 | EDPHYS ---
Physician Documentation [facility] Name: Nay An Age: 24 yrs Sex: Female : 1995 Arrival Date: 08/10/2019 Time: 02:40 Bed 7 Private MD: TESSA Physician Del Cantu HPI: 08/10 02:57 This 24 yrs old Female presents to ER via Unassigned with complaints of Nausea.karen 02:57 The patient presents to the emergency department with nausea, vomiting, that is karen intermittent. Onset: The symptoms/episode began/occurred 2 day(s) ago. Possible causes: unknown. The symptoms are aggravated by nothing. Associated signs and symptoms: The patient has no apparent associated signs or symptoms. Severity of symptoms: At their worst the symptoms were mild in the emergency department the symptoms are unchanged. The patient has not experienced similar symptoms in the past. 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 - Social history:: Smoking status: Patient/guardian denies using tobacco, the patient reports quitting approximately 1 years ago. - Family history:: not pertinent. - Ebola Screening: : Patient negative for fever greater than or equal to 101.5 degrees Fahrenheit, and additional compatible Ebola Virus Disease symptoms. ROS: 02:57 Constitutional: Negative for fever, chills, and weight loss, Eyes: Negative for injury, karen pain, redness, and discharge, ENT: Negative for injury, pain, and discharge, Neck: Negative for injury, pain, and swelling, Cardiovascular: Negative for chest pain, palpitations, and edema, Respiratory: Negative for shortness of breath, cough, wheezing, and pleuritic chest pain, Back: Negative for injury and pain, : Negative for injury, bleeding, discharge, and swelling, MS/Extremity: Negative for injury and deformity, Skin: Negative for injury, rash, and discoloration, Neuro: Negative for headache, weakness, numbness, tingling, and seizure, Psych: Negative for depression, anxiety, suicide ideation, homicidal ideation, and hallucinations, Allergy/Immunology: Negative for hives, rash, and allergies, Endocrine: Negative for neck swelling, polydipsia, polyuria, polyphagia, and marked weight changes, Hematologic/Lymphatic: Negative for swollen nodes, abnormal bleeding, and unusual bruising. 02:57 Abdomen/GI: Positive for nausea and vomiting, of the right upper quadrant, left upper quadrant, right lower quadrant and left lower quadrant. Exam: 02:57 Constitutional: This is a well developed, well nourished patient who is awake, alert, karen and in no acute distress. Head/Face: Normocephalic, atraumatic. Eyes: Pupils equal round and reactive to light, extra-ocular motions intact. Lids and lashes normal. Conjunctiva and sclera are non-icteric and not injected. Cornea within normal limits. Periorbital areas with no swelling, redness, or edema. ENT: Nares patent. No nasal discharge, no septal abnormalities noted. Tympanic membranes are normal and external auditory canals are clear. Oropharynx with no redness, swelling, or masses, exudates, or evidence of obstruction, uvula midline. Mucous membranes moist. Neck: Trachea midline, no thyromegaly or masses palpated, and no cervical lymphadenopathy. Supple, full range of motion without nuchal rigidity, or vertebral point tenderness. No Meningismus. Chest/axilla: Normal chest wall appearance and motion. Nontender with no deformity. No lesions are appreciated. Cardiovascular: Regular rate and rhythm with a normal S1 and S2. No gallops, murmurs, or rubs. Normal PMI, no JVD. No pulse deficits. Respiratory: Lungs have equal breath sounds bilaterally, clear to auscultation and percussion. No rales, rhonchi or wheezes noted. No increased work of breathing, no retractions or nasal flaring. Abdomen/GI: Soft, non-tender, with normal bowel sounds. No distension or tympany. No guarding or rebound. No evidence of tenderness throughout. Back: No spinal tenderness. No costovertebral tenderness. Full range of motion. Female : Normal external genitalia. Skin: Warm, dry with normal turgor. Normal color with no rashes, no lesions, and no evidence of cellulitis. MS/ Extremity: Pulses equal, no cyanosis. Neurovascular intact. Full, normal range of motion. Neuro: Awake and alert, GCS 15, oriented to person, place, time, and situation. Cranial nerves II-XII grossly intact. Motor strength 5/5 in all extremities. Sensory grossly intact. Cerebellar exam normal. Normal gait. Psych: Awake, alert, with orientation to person, place and time. Behavior, mood, and affect are within normal limits. 02:57 Neuro: Orientation: is normal, appropriate for stated age, no acute changes, Mentation: is normal, appropriate for stated age, no acute changes, Memory: is normal, appropriate for stated age, no acute changes, Cranial nerves: grossly normal, Gait: is steady, Deep tendon reflexes are 2+ (normal) in the bilateral brachioradialis, bicep, tricep and patellar and Achilles tendons. Vital Signs: 02:58 BP 132 / 84 Supine; Pulse 104; jd3 03:00 BP 139 / 92 Sitting; Pulse 112; jd3 03:02 BP 121 / 90; Pulse 107; Resp 16 S; Temp 98.1(O); Pulse Ox 98% on R/A; Weight 63.5 kg jd3 (R); Height 5 ft. 3 in. (160.02 cm) (R); Pain 0/10; 03:02 BP 121 / 90 Standing; Pulse 107; jd3 03:02 Body Mass Index 24.80 (63.50 kg, 160.02 cm) [facility] MDM: 02:51 Patient medically screened. [facility] 02:57 Data reviewed: vital signs, nurses notes, lab test result(s), urinalysis. [facility] 08/10 03:10 Order name: Urine Culture [facility] 08/10 03:39 Order name: Urine Dipstick--Ancillary (enter results) [facility] 08/10 03:39 Order name: Urine --Ancillary (enter results) [facility] 08/10 02:53 Order name: Urine Dipstick-Ancillary (obtain specimen); Complete Time: 03:05 [facility] 08/10 02:53 Order name: Urine Test (obtain specimen); Complete Time: 03:05 [facility] 08/10 02:53 Order name: Orthostatics; Complete Time: 02:57 [facility] Administered Medications: 03:00 Drug: Zofran 4 mg Route: PO; jd3 03:44 Follow up: Response: No adverse reaction [facility] 03:25 Drug: Rocephin (cefTRIAXone) 1 grams Route: IM; Site: right gluteus; jd3 03:44 Follow up: Response: No adverse reaction jd3 03:25 Drug: Bactrim (160 mg-800 mg (DS) 1 tablet Route: PO; jd3 03:44 Follow up: Response: No adverse reaction jd3 Disposition: 08/10/19 03:00 Discharged to Home. Impression: Vomiting, Nausea, Urinary tract infection, site not specified. - Condition is Stable. - Discharge Instructions: Nausea and Vomiting, Adult, Nausea, Adult, Urinary Tract Infection, Adult, Nausea and Vomiting, Adult, [id number], Urinary Tract Infection, Adult, [id number], Nausea, Adult, [id number]. - Prescriptions for Zofran 4 mg Oral Tablet - take 1 tablet by ORAL route every 12 hours As needed; 20 tablet. Bactrim DS 800- 160 mg Oral Tablet - take 1 tablet by ORAL route every 12 hours for 7 days; 14 tablet. - Medication Reconciliation Form, Thank You Letter, Antibiotic Education, Prescription Opioid Use form. - Follow up: Private Physician; When: 2 - 3 days; Reason: Recheck today's complaints, Continuance of care, Re-evaluation by your physician. - Problem is new. - Symptoms have improved. Signatures: Dispatcher [employer] EDMS Del Cantu MD MD cha Davies, Jonathon, RN RN jd3 Corrections: (The following items were deleted from the chart) 03:12 03:00 08/10/2019 03:00 Discharged to Home. Impression: Vomiting; Nausea. Condition is karen Stable. Forms are Medication Reconciliation Form, Thank You Letter, Antibiotic Education, Prescription Opioid Use. Follow up: Private Physician; When: 2 - 3 days; Reason: Recheck today's complaints, Continuance of care, Re-evaluation by your physician. Problem is new. Symptoms have improved. [facility] 03:44 03:12 08/10/2019 03:00 Discharged to Home. Impression: Vomiting; Nausea; Urinary tract jd3 infection, site not specified. Condition is Stable. Discharge Instructions: Nausea and Vomiting, Adult, Nausea, Adult, Nausea and Vomiting, Adult, [id number], Nausea, Adult, [id number]. Prescriptions for Zofran 4 mg Oral Tablet - take 1 tablet by ORAL route every 12 hours As needed; 20 tablet. and Forms are Medication Reconciliation Form, Thank You Letter, Antibiotic Education, Prescription Opioid Use. Follow up: Private Physician; When: 2 - 3 days; Reason: Recheck today's complaints, Continuance of care, Re-evaluation by your physician. Problem is new. Symptoms have improved. karen
[2019-08-10] MEDS ORDERED: CEFTRIAXONE 1000 MG/VIAL ONE (03:16)
[2019-08-10] MEDS ORDERED: SMZ./TMP. 800/160 MG TABLET ONE (03:16)
[2019-08-10 04:53] LABS: Urine Blood NEGATIVE (NEG); Urine Glucose NEGATIVE (NEG); Urine Protein TRACE (NEG); Urine Specific Gravity 1.025 (1.005-1.030)
[2019-08-10 05:29] VITALS: BP 121/90; TEMP 98.1; O2SAT 98
== END 2019-08-10 03:44 | disposition home or self-care (01) ==
LOC: ER 02:37
DX: N39.0 Urinary tract infection, site not specified (principal); R11.2 Nausea with vomiting, unspecified
CPT/HCPCS: 81003; 81025; 87086; 87088; 96372; 99283

== ENCOUNTER 2019-08-24 17:05 | Emergency (ER) | payer OTHER ==
[2019-08-24 17:54] LABS: Absolute Lymphocytes (CBC) 2.1 K/uL (0.7-4.9); Basophils % 0.5 % (0-1.3); Hematocrit 32.9 % (36.0-45.0); Lymphocytes % 22.3 % (15.3-44.8); MPV 10.9 fL (7.6-11.3); RBC Red Blood Cell Count 4.43 M/uL (3.86-4.86)
[2019-08-24 18:23] LABS: ALT/SGPT 31 U/L (12-78); AST/SGOT 23 U/L (15-37); Albumin 3.7 g/dL (3.4-5.0); Alkaline Phosphatase 76 U/L (45-117); BUN Blood Urea Nitrogen 9 mg/dL (7-18); Bicarbonate 24 mmol/L (21-32); Bilirubin Direct < 0.1 mg/dL (0-0.2); Bilirubin Total 0.2 mg/dL (0.2-1.0); Glucose Level 92 mg/dL (74-106); Lipase 313 U/L (73-393); Protein, Total 7.2 g/dL (6.4-8.2); Sodium Level 141 mmol/L (136-145)
[2019-08-24 18:26] LABS: Anisocytosis 2+; Blood Morphology Comment NOTED (NOT SEEN); Platelet Estimate ADEQ; Urine White Blood Cell Casts OK
[2019-08-24] MEDS ORDERED: POTASSIUM CL SA 10 MEQ TAB PO ONE (18:37)
[2019-08-24 19:03] LABS: Urine Bacteria 20-50 /HPF (<20); Urine Culture Reflex Order REFLEXED; Urine RBC <5 /HPF (NONE SEEN)
[2019-08-24 19:10] LABS: Barbiturates NEGATIVE (NEGATIVE); Benzodiazepines NEGATIVE (NEGATIVE); Cocaine NEGATIVE (NEGATIVE); METHAMPHETAM NEGATIVE (NEGATIVE); Methadone NEGATIVE (NEGATIVE); Opiates NEGATIVE (NEGATIVE); Phencyclidine NEGATIVE (NEGATIVE); THC Cannibis NEGATIVE (NEGATIVE)
--- NOTE | 2019-08-24 20:08 | EDPHYS ---
Physician Documentation [facility] Name: Nay An Age: 24 yrs Sex: Female : 1995 Arrival Date: 08/24/2019 Time: 17:08 Bed 23 Private MD: ED Physician Del Cantu HPI: 08/24 17:55 This 24 yrs old Female presents to ER via Ambulatory with complaints of jr8 Diarrhea, Nausea/Vomiting. 17:55 The patient presents to the emergency department with nausea, vomiting, diarrhea. jr8 Onset: The symptoms/episode began/occurred gradually, 3 week(s) ago. Possible causes: unknown. The symptoms are aggravated by nothing. The symptoms are alleviated by nothing. Associated signs and symptoms: The patient has no apparent associated signs or symptoms. Severity of symptoms: At their worst the symptoms were moderate in the emergency department the symptoms are unchanged. The patient has not experienced similar symptoms in the past. The patient has been recently seen by a physician:. Patient stated that she has had n/v/d for three weeks. Denies travel, medicine or drug use, dietary changes, or any medical problems. Stated that she had a child about 2 months ago but has been doing well. Has been seen by ED, PCP, and GI. Has had urine, labs, stool tests, and CT abd and pelvis completed with no acute findings. Scheduled for colonoscopy in a couple of weeks. Came today because she is tired and doesn't know if there is anything else we can do . 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 - Social history:: Smoking status: Patient/guardian denies using tobacco. - Ebola Screening: : No symptoms or risks identified at this time. ROS: 17:58 Constitutional: Negative for fever, chills, and weight loss. jr8 17:58 Abdomen/GI: Positive for nausea, vomiting, and diarrhea, Negative for abdominal pain, hematemesis, black/tarry stool, rectal pain, rectal bleeding, bowel incontinence, flatulence. 17:58 All other systems are negative. Exam: 17:58 Eyes: Pupils equal round and reactive to light, extra-ocular motions intact. Lids and jr8 lashes normal. Conjunctiva and sclera are non-icteric and not injected. Cornea within normal limits. Periorbital areas with no swelling, redness, or edema. ENT: Nares patent. No nasal discharge, no septal abnormalities noted. Tympanic membranes are normal and external auditory canals are clear. Oropharynx with no redness, swelling, or masses, exudates, or evidence of obstruction, uvula midline. Mucous membranes moist. Neck: Trachea midline, no thyromegaly or masses palpated, and no cervical lymphadenopathy. Supple, full range of motion without nuchal rigidity, or vertebral point tenderness. No Meningismus. Cardiovascular: Regular rate and rhythm with a normal S1 and S2. No gallops, murmurs, or rubs. Normal PMI, no JVD. No pulse deficits. Respiratory: Lungs have equal breath sounds bilaterally, clear to auscultation and percussion. No rales, rhonchi or wheezes noted. No increased work of breathing, no retractions or nasal flaring. Abdomen/GI: Soft, non-tender, with normal bowel sounds. No distension or tympany. No guarding or rebound. No evidence of tenderness throughout. Back: No spinal tenderness. No costovertebral tenderness. Full range of motion. Skin: Warm, dry with normal turgor. Normal color with no rashes, no lesions, and no evidence of cellulitis. MS/ Extremity: Pulses equal, no cyanosis. Neurovascular intact. Full, normal range of motion. Neuro: Awake and alert, GCS 15, oriented to person, place, time, and situation. Cranial nerves II-XII grossly intact. Motor strength 5/5 in all extremities. Sensory grossly intact. Cerebellar exam normal. Normal gait. Vital Signs: 17:12 BP 135 / 91; Pulse 72; Resp 16; Temp 97.4; Pulse Ox 100% on R/A; Weight 58.51 kg; la1 Height 5 ft. 3 in. (160.02 cm); 18:13 BP 123 / 86; Pulse 70; Resp 17; Pulse Ox 100% on R/A; rv 19:58 BP 119 / 81; Pulse 72; Resp 17; Pulse Ox 100% on R/A; rv 17:12 Body Mass Index 22.85 (58.51 kg, 160.02 cm) [facility] MDM: 17:14 Patient medically screened. jr8 20:05 Data reviewed: vital signs, nurses notes, old medical records, lab test result(s). Data 8 interpreted: Pulse oximetry: on room air is 100 %. Interpretation: normal. 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 ED course: UTI noted on labs. Otherwise unremarkable. Needs to f/u with GI. Will have her do home stool kit and bring back to lab. Patient good with this and will f/u . 08/24 17:15 Order name: Basic Metabolic Panel [facility] 08/24 17:15 Order name: CBC with Diff [facility] 08/24 17:15 Order name: Creatinine for Radiology [facility] 08/24 17:15 Order name: Hepatic Function [facility] 08/24 17:15 Order name: Lipase [facility] 08/24 17:15 Order name: Urine Drug Screen [facility] 08/24 17:15 Order name: Urine Microscopic Only [facility] 08/24 17:57 Order name: CBC with Automated Diff; Complete Time: 18:28 [facility] 08/24 18:10 Order name: Creatinine (Radiology Only); Complete Time: 18:19 [facility] 08/24 18:23 Order name: Basic Metabolic Panel; Complete Time: 18:26 [facility] 08/24 18:24 Order name: Liver (Hepatic) Function; Complete Time: 18:26 [facility] 08/24 18:24 Order name: Lipase; Complete Time: 18:26 [facility] 08/24 18:27 Order name: CBC Smear Scan; Complete Time: 18:28 [facility] 08/24 18:52 Order name: Urine Dipstick--Ancillary (enter results) 08/24 17:15 Order name: IV Saline Lock; Complete Time: 17:28 [facility] 08/24 17:15 Order name: Labs collected and sent; Complete Time: 17:28 [facility] 08/24 17:15 Order name: Urine Test (obtain specimen); Complete Time: 19:25 [facility] 08/24 17:15 Order name: Urine Dipstick-Ancillary (obtain specimen); Complete Time: 19:25 [facility] 08/24 18:52 Order name: Urine --Ancillary (enter results) eb 08/24 19:03 Order name: Urine Microscopic Only; Complete Time: 19:13 EDMS 08/24 19:11 Order name: Urine Drug Screen; Complete Time: 19:13 EDMS Administered Medications: 18:40 Drug: Potassium Chloride 40 mEq Route: PO; rv 19:13 Follow up: Response: No adverse reaction rv Disposition: 08/25 13:24 Co-signature as Attending Physician, Del Cantu MD I agree with the assessment and karen plan of care. Disposition: 08/24/19 20:07 Discharged to Home. Impression: Diarrhea, unspecified, Vomiting, Urinary tract infection, site not specified. - Condition is Stable. - Discharge Instructions: Diarrhea, Adult, Nausea and Vomiting, Adult. - Prescriptions for Cipro 500 mg Oral Tablet - take 1 tablet by ORAL route every 12 hours for 10 days; 20 tablet. Flagyl 500 mg Oral Tablet - take 1 tablet by ORAL route every 6 hours for 10 days; 40 tablet. - Medication Reconciliation Form, Thank You Letter, Antibiotic Education, Prescription Opioid Use form. - Follow up: Parveen Cabello MD; When: 5 - 6 days; Reason: Recheck today's complaints, Continuance of care, Re-evaluation by your physician. - Problem is new. - Symptoms have improved. Signatures: Dispatcher [employer] Del Easton MD MD cha Roszak, Josh, PA PA jr8 Henry Gonzales RN RN la1 Alex Gutiérrez RN RN rv Corrections: (The following items were deleted from the chart) 08/24 20:08 20:07 08/24/2019 20:07 Discharged to Home. Impression: Diarrhea, unspecified; Vomiting. jr8 Condition is Stable. Forms are Medication Reconciliation Form, Thank You Letter, Antibiotic Education, Prescription Opioid Use. Follow up: Parveen Cabello; When: 5 - 6 days; Reason: Recheck today's complaints, Continuance of care, Re-evaluation by your physician. Problem is new. Symptoms have improved. jr8 20:11 20:08 08/24/2019 20:07 Discharged to Home. Impression: Diarrhea, unspecified; Vomiting; rv Urinary tract infection, site not specified. Condition is Stable. Discharge Instructions: Diarrhea, Adult, Nausea and Vomiting, Adult. Prescriptions for Cipro 500 mg Oral Tablet - take 1 tablet by ORAL route every 12 hours for 10 days; 20 tablet, Flagyl 500 mg Oral Tablet - take 1 tablet by ORAL route every 6 hours for 10 days; 40 tablet. and Forms are Medication Reconciliation Form, Thank You Letter, Antibiotic Education, Prescription Opioid Use. Follow up: Parveen Cabello; When: 5 - 6 days; Reason: Recheck today's complaints, Continuance of care, Re-evaluation by your physician. Problem is new. Symptoms have improved. jr8
--- NOTE | 2019-08-24 20:08 | ER ---
Nurse's Notes [facility] Name: Nay An Age: 24 yrs Sex: Female : 1995 Arrival Date: 08/24/2019 Time: 17:08 Bed 23 Private MD: Diagnosis: Diarrhea, unspecified;Vomiting;Urinary tract infection, site not specified Presentation: 08/24 17:11 Presenting complaint: Patient states: I have had N/V for the last three weeks, seen at [facility] multiple doctors, GI, ED, PCP and they cant find anything. Transition of care: patient was not received from another setting of care. Onset of symptoms was August 24, 2019. Risk Assessment: Do you want to hurt yourself or someone else? Patient reports no desire to harm self or others. Initial Sepsis Screen: Does the patient meet any 2 criteria? No. Patient's initial sepsis screen is negative. Does the patient have a suspected source of infection? No. Patient's initial sepsis screen is negative. Care prior to arrival: None. 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 - Social history:: Smoking status: Patient/guardian denies using tobacco. - Ebola Screening: : No symptoms or risks identified at this time. Screenin:27 Abuse screen: Denies threats or abuse. Denies injuries from another. Nutritional rv screening: No deficits noted. Tuberculosis screening: No symptoms or risk factors identified. Fall Risk None identified. Assessment: 17:27 General: Appears in no apparent distress. comfortable, Behavior is calm, cooperative. rv Pain: Denies pain. Neuro: Level of Consciousness is awake, alert, obeys commands, Oriented to person, place, time, situation. Cardiovascular: Patient's skin is warm and dry. Respiratory: Airway is patent. GI: Reports diarrhea, nausea, vomiting. : No signs and/or symptoms were reported regarding the genitourinary system. EENT: No signs and/or symptoms were reported regarding the EENT system. Derm: Skin is intact. Musculoskeletal: No signs and/or symptoms reported regarding the musculoskeletal system. 18:13 Reassessment: Patient appears in no apparent distress at this time. rv Vital Signs: 17:12 BP 135 / 91; Pulse 72; Resp 16; Temp 97.4; Pulse Ox 100% on R/A; Weight 58.51 kg; la1 Height 5 ft. 3 in. (160.02 cm); 18:13 BP 123 / 86; Pulse 70; Resp 17; Pulse Ox 100% on R/A; rv 19:58 BP 119 / 81; Pulse 72; Resp 17; Pulse Ox 100% on R/A; rv 17:12 Body Mass Index 22.85 (58.51 kg, 160.02 cm) la1 ED Course: 17:08 Patient arrived in ED. mr 17:12 Triage completed. la1 17:13 Arm band placed on left wrist. la1 17:14 Marlo Bush PA is PHCP. jr8 17:14 Del Cantu MD is Attending Physician. jr8 17:23 Alex Gutiérrez RN is Primary Nurse. rv 17:27 Patient has correct armband on for positive identification. Bed in low position. Call rv light in reach. Side rails up X 1. Adult w/ patient. Pulse ox on. NIBP on. 17:48 Inserted saline lock: 20 gauge in right antecubital area, using aseptic technique. rv Blood collected. 19:58 No provider procedures requiring assistance completed. IV discontinued, intact, rv bleeding controlled, No redness/swelling at site. Pressure dressing applied. 20:07 Parveen Cabello MD is Referral Physician. jr8 Administered Medications: 18:40 Drug: Potassium Chloride 40 mEq Route: PO; rv 19:13 Follow up: Response: No adverse reaction rv Outcome: 20:07 Discharge ordered by . jr8 20:10 Discharged to home ambulatory, with family. rv 20:10 Condition: good 20:10 Discharge instructions given to patient, Instructed on discharge instructions, follow up and referral plans. medication usage, Demonstrated understanding of instructions, follow-up care, medications, Prescriptions given X 2. 20:11 Patient left the ED. rv Signatures: Nettie Moon mr Marlo Bush PA PA jr8 Henry Gonzales RN RN la1 Alex Gutiérrez RN RN rv
[2019-08-24 20:29] LABS: Urine Blood NEGATIVE (NEG); Urine Glucose NEGATIVE (NEG); Urine Protein NEGATIVE (NEG); Urine Specific Gravity 1.015 (1.005-1.030)
[2019-08-24 21:01] VITALS: TEMP 97.4; O2SAT 100
[2019-08-24 21:03] VITALS: BP 119/81
== END 2019-08-24 20:11 | disposition home or self-care (01) ==
LOC: ER 17:05
DX: N39.0 Urinary tract infection, site not specified (principal); R11.2 Nausea with vomiting, unspecified
CPT/HCPCS: 36415; 80048; 80076; 80307; 81003; 81015; 81025; 83690; 85025; 87086; 87088; 99284

== ENCOUNTER 2019-08-31 21:43 | Emergency (ER) | payer OTHER ==
--- NOTE | 2019-08-31 22:21 | ER ---
Nurse's Notes [facility] Name: Nay An Age: 24 yrs Sex: Female : 1995 Arrival Date: 08/31/2019 Time: 21:48 Bed 18 Private MD: Diagnosis: Nausea Presentation: 08/31 21:51 Presenting complaint: Patient states: Nausea for the past 3 weeks. Patient reports that aj1 she was seen at the ER in [place] and at the [facility] clinic and everything came up normal. States that she urine, blood and stool samples done. Reports that she had a CT as well and it was also normal. Patient reports that she has an appointment with GI on 09/09/19. Denies vomiting or diarrhea. Transition of care: patient was not received from another setting of care. Onset of symptoms was 2018. Risk Assessment: Do you want to hurt yourself or someone else? Patient reports no desire to harm self or others. Initial Sepsis Screen: Does the patient meet any 2 criteria? No. Patient's initial sepsis screen is negative. Does the patient have a suspected source of infection? No. Patient's initial sepsis screen is negative. Care prior to arrival: None. 21:51 Method Of Arrival: Ambulatory aj1 21:51 Acuity: TRAMAINE 4 aj1 Triage Assessment: 21:53 General: Appears in no apparent distress. comfortable, Behavior is calm, cooperative, aj1 appropriate for age. Pain: Denies pain. Neuro: Level of Consciousness is awake, alert, obeys commands. Cardiovascular: Patient's skin is warm and dry. Respiratory: Airway is patent Respiratory effort is even, unlabored, Respiratory pattern is regular, symmetrical. GI: Reports nausea, Patient currently denies abdominal pain, diarrhea, vomiting. 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 - Social history:: Smoking status: Patient/guardian denies using tobacco. - Ebola Screening: : Patient denies travel to an Ebola-affected area in the 21 days before illness onset. Screenin:02 Abuse screen: Denies threats or abuse. Denies injuries from another. Nutritional cc3 screening: No deficits noted. Tuberculosis screening: No symptoms or risk factors identified. Fall Risk Ambulatory Aid- None/Bed Rest/Nurse Assist (0 pts). Gait- Normal/Bed Rest/Wheelchair (0 pts) Mental Status- Oriented to own ability (0 pts). Assessment: 22:40 General: Appears in no apparent distress. comfortable, Behavior is calm, cooperative, cc3 appropriate for age. Pain: Denies pain. Neuro: Level of Consciousness is awake, alert, obeys commands, Oriented to person, place, time, situation, Appropriate for age. Cardiovascular: Denies chest pain, Heart tones S1 S2 present Capillary refill < 3 seconds in bilateral fingers Patient's skin is warm and dry. Respiratory: Airway is patent Respiratory effort is even, unlabored, Respiratory pattern is regular, symmetrical, Breath sounds are clear bilaterally. GI: Abdomen is flat, Bowel sounds present X 4 quads. Abd is soft and non tender X 4 quads. : No signs and/or symptoms were reported regarding the genitourinary system. EENT: No signs and/or symptoms were reported regarding the EENT system. Derm: Skin is intact, is healthy with good turgor, Skin is pink, warm \T\ dry. normal. Musculoskeletal: No signs and/or symptoms reported regarding the musculoskeletal system. 22:40 Reassessment: Patient appears in no apparent distress at this time. Patient and/or cc3 family updated on plan of care and expected duration. Pain level reassessed. Patient is alert, oriented x 3, equal unlabored respirations, skin warm/dry/pink. CHEPE Louis discharged the patient home with prescriptions given. No IV cannula in situ. Patient left ER vitally stable and ambulatory. No valuables left in the patient's room. Patient denies pain at this time. Patient states feeling better. Patient states symptoms have improved. Vital Signs: 21:53 BP 130 / 86; Pulse 80; Resp 18; Temp 97.4; Pulse Ox 100% on R/A; Weight 58.51 kg (R); aj1 Height 5 ft. 3 in. (160.02 cm) (R); Pain 0/10; 22:25 BP 119 / 78; Pulse 85; Resp 15 S; Pulse Ox 100% on R/A; Pain 0/10; cc3 21:53 Body Mass Index 22.85 (58.51 kg, 160.02 cm) aj1 ED Course: 21:48 Patient arrived in ED. es 21:53 Triage completed. aj1 21:53 Arm band placed on Patient placed in an exam room. aj1 21:56 Missy Upton FNP-C [facility] sn 21:56 Justin Hyde MD is Attending Physician. snw 22:02 Alvina Alarcon is Primary Nurse. cc3 22:02 Patient has correct armband on for positive identification. Bed in low position. Call cc3 light in reach. Side rails up X2. Pulse ox on. NIBP on. 22:40 No provider procedures requiring assistance completed. Patient did not have IV access cc3 during this emergency room visit. Administered Medications: 22:30 Drug: Zofran 4 mg Route: PO; cc3 22:40 Follow up: Response: No adverse reaction cc3 22:30 Drug: ProTONIX 40 mg Route: PO; cc3 22:40 Follow up: Response: No adverse reaction cc3 Outcome: 22:21 Discharge ordered by . snw 22:40 Discharged to home ambulatory. cc3 22:40 Condition: stable 22:40 Discharge instructions given to patient, Instructed on discharge instructions, follow up and referral plans. medication usage, Demonstrated understanding of instructions, follow-up care, medications, Prescriptions given X 3. 22:45 Patient left the ED. cc3 Signatures: Daniela Clark RN RN aj1 Missy Upton FNP-C FNP-Radha Hunter Alvina Alarcon cc3
--- NOTE | 2019-08-31 22:22 | EDPHYS ---
Physician Documentation [facility] Name: Nay An Age: 24 yrs Sex: Female : 1995 Arrival Date: 08/31/2019 Time: 21:48 Bed 18 Private MD: ED Physician Justin Hyde HPI: 08/31 22:49 This 24 yrs old Female presents to ER via Ambulatory with complaints of Nausea.snw 22:49 The patient presents to the emergency department with nausea, that is moderate. Onset: snw The symptoms/episode began/occurred gradually, 3 week(s) ago, and became persistent. Possible causes: "feels like when I had a bacteria in my stomach a long time ago". Associated signs and symptoms: Pertinent positives: nausea, Pertinent negatives: constipation, diarrhea, dysuria, fever, GI bleeding, vomiting. Severity of symptoms: At their worst the symptoms were moderate. The patient has experienced a previous episode, many years ago. The patient has been recently seen by a physician: Multiple visits with complete work ups, appt with GI on 09/09/19. 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 - Social history:: Smoking status: Patient/guardian denies using tobacco. - Ebola Screening: : Patient denies travel to an Ebola-affected area in the 21 days before illness onset. ROS: 22:49 Constitutional: Negative for fever, chills, and weight loss, Eyes: Negative for injury, snw pain, redness, and discharge, ENT: Negative for injury, pain, and discharge, Neck: Negative for injury, pain, and swelling, Cardiovascular: Negative for chest pain, palpitations, and edema, Respiratory: Negative for shortness of breath, cough, wheezing, and pleuritic chest pain, Back: Negative for injury and pain, : Negative for injury, bleeding, discharge, and swelling, MS/Extremity: Negative for injury and deformity, Skin: Negative for injury, rash, and discoloration, Neuro: Negative for headache, weakness, numbness, tingling, and seizure, Psych: Negative for depression, anxiety, suicide ideation, homicidal ideation, and hallucinations. 22:49 Abdomen/GI: Positive for nausea, Negative for vomiting, diarrhea, constipation, snw abdominal cramps. Exam: 22:48 Constitutional: This is a well developed, well nourished patient who is awake, alert, snw and in no acute distress. Head/Face: Normocephalic, atraumatic. Eyes: Pupils equal round and reactive to light, extra-ocular motions intact. Lids and lashes normal. Conjunctiva and sclera are non-icteric and not injected. Cornea within normal limits. Periorbital areas with no swelling, redness, or edema. ENT: Nares patent. No nasal discharge, no septal abnormalities noted. Tympanic membranes are normal and external auditory canals are clear. Oropharynx with no redness, swelling, or masses, exudates, or evidence of obstruction, uvula midline. Mucous membranes moist. Neck: Trachea midline, no thyromegaly or masses palpated, and no cervical lymphadenopathy. Supple, full range of motion without nuchal rigidity, or vertebral point tenderness. No Meningismus. Chest/axilla: Normal chest wall appearance and motion. Nontender with no deformity. No lesions are appreciated. Cardiovascular: Regular rate and rhythm with a normal S1 and S2. No gallops, murmurs, or rubs. Normal PMI, no JVD. No pulse deficits. Respiratory: Lungs have equal breath sounds bilaterally, clear to auscultation and percussion. No rales, rhonchi or wheezes noted. No increased work of breathing, no retractions or nasal flaring. Abdomen/GI: Soft, non-tender, with normal bowel sounds. No distension or tympany. No guarding or rebound. No evidence of tenderness throughout. Back: No spinal tenderness. No costovertebral tenderness. Full range of motion. Skin: Warm, dry with normal turgor. Normal color with no rashes, no lesions, and no evidence of cellulitis. MS/ Extremity: Pulses equal, no cyanosis. Neurovascular intact. Full, normal range of motion. Neuro: Awake and alert, GCS 15, oriented to person, place, time, and situation. Cranial nerves II-XII grossly intact. Motor strength 5/5 in all extremities. Sensory grossly intact. Cerebellar exam normal. Normal gait. Psych: Awake, alert, with orientation to person, place and time. Behavior, mood, and affect are within normal limits. Vital Signs: 21:53 BP 130 / 86; Pulse 80; Resp 18; Temp 97.4; Pulse Ox 100% on R/A; Weight 58.51 kg (R); aj1 Height 5 ft. 3 in. (160.02 cm) (R); Pain 0/10; 22:25 BP 119 / 78; Pulse 85; Resp 15 S; Pulse Ox 100% on R/A; Pain 0/10; cc3 21:53 Body Mass Index 22.85 (58.51 kg, 160.02 cm) aj1 MDM: 21:57 Patient medically screened. snw 22:51 Data reviewed: vital signs, nurses notes. Data interpreted: Pulse oximetry: on room air snw is 100 %. Interpretation: normal. Counseling: I had a detailed discussion with the patient and/or guardian regarding: the historical points, exam findings, and any diagnostic results supporting the discharge/admit diagnosis, the presence of at least one elevated blood pressure reading (>120/80) during this emergency department visit, the need for outpatient follow up, to return to the emergency department if symptoms worsen or persist or if there are any questions or concerns that arise at home. Special discussion: Based on the patient's Hx, exam, and Dx evaluation, there is no indication for emergent surgery or inpatient Tx. It is understood by the patient/guardian that if the Sx's persist or worsen they need to return immediately for re-evaluation. I have referred the patient to see his PCP for further evaluation of high blood pressure. Based on the history and exam findings, there is no indication for further emergent testing or inpatient evaluation. I discussed with the patient/guardian the need to see the mac artist for further evaluation of the symptoms. Administered Medications: 22:30 Drug: Zofran 4 mg Route: PO; cc3 22:40 Follow up: Response: No adverse reaction cc3 22:30 Drug: ProTONIX 40 mg Route: PO; cc3 22:40 Follow up: Response: No adverse reaction cc3 Disposition: 09/01 01:42 Co-signature as Attending Physician, Justin Hyde MD. rn Disposition: 08/31/19 22:21 Discharged to Home. Impression: Nausea. - Condition is Stable. - Discharge Instructions: Nausea, Adult. - Prescriptions for Protonix 40 mg Oral Tablet - take 1 tablet by ORAL route once daily; 30 tablet. Zofran 4 mg Oral Tablet - take 1 tablet by ORAL route every 12 hours As needed; 10 tablet. promethazine 25 mg Oral Tablet - take 1 tablet by ORAL route every 6 hours As needed; 20 tablet. - Medication Reconciliation Form, Thank You Letter, Antibiotic Education, Prescription Opioid Use form. - Follow up: Private Physician; When: 2 - 3 days; Reason: Recheck today's complaints, Continuance of care, Re-evaluation by your physician. Follow up: Emergency Department; When: As needed; Reason: Worsening of condition. Signatures: Daniela Clark RN RN aj1 Missy Upton FNP-C NUCLEAR MEDICINE PET CT TECHNOLOGIST-Justin Brewster MD MD rn Cordel, Charlene cc3 Corrections: (The following items were deleted from the chart) 08/31 22:45 22:21 08/31/2019 22:21 Discharged to Home. Impression: Nausea. Condition is Stable. cc3 Forms are Medication Reconciliation Form, Thank You Letter, Antibiotic Education, Prescription Opioid Use. Follow up: Private Physician; When: 2 - 3 days; Reason: Recheck today's complaints, Continuance of care, Re-evaluation by your physician. Follow up: Emergency Department; When: As needed; Reason: Worsening of condition. snw
[2019-08-31] MEDS ORDERED: ONDANSETRON 4 MG (ODT) TAB ONE (22:26)
[2019-08-31] MEDS ORDERED: PANTOPRAZOLE 40MG TABLET PO ONE (22:26)
[2019-08-31 23:27] VITALS: BP 130/86; TEMP 97.4; O2SAT 100
== END 2019-08-31 22:45 | disposition home or self-care (01) ==
LOC: ER 21:43
DX: R11.0 Nausea (principal)
CPT/HCPCS: 99283

== ENCOUNTER 2019-09-26 21:42 | Emergency (ER) | payer OTHER ==
[2019-09-26] MEDS ORDERED: KETOROLAC 30 MG/ML INJ ONE (22:11)
[2019-09-26] MEDS ORDERED: NA CHLORIDE 0.9% 1,000 ML ONE (22:11)
[2019-09-26] MEDS ORDERED: ONDANSETRON 4 MG/2 ML VIAL ONE (22:13)
[2019-09-26 22:22] LABS: Urine Blood 2+ (NEG); Urine Glucose NEGATIVE (NEG); Urine Protein NEGATIVE (NEG); Urine Specific Gravity >1.030 (1.005-1.030); Urine pH 5.5 (5.0-7.0)
[2019-09-26 22:29] LABS: Urine Bacteria 20-50 /HPF (<20); Urine Culture Reflex Order REFLEXED; Urine Mucus 2+ /HPF (NONE SEEN)
[2019-09-26 22:31] LABS: Basophils % 0.3 % (0-1.3); Hematocrit 36.8 % (36.0-45.0); Lymphocytes % 28.6 % (15.3-44.8); MPV 10.3 fL (7.6-11.3); RBC Red Blood Cell Count 4.94 M/uL (3.86-4.86)
[2019-09-26 22:43] LABS: ALT/SGPT 32 U/L (12-78); AST/SGOT 16 U/L (15-37); Albumin 4.1 g/dL (3.4-5.0); Alkaline Phosphatase 77 U/L (45-117); BUN Blood Urea Nitrogen 10 mg/dL (7-18); Bicarbonate 24 mmol/L (21-32); Bilirubin Direct 0.1 mg/dL (0-0.2); Bilirubin Total 0.3 mg/dL (0.2-1.0); Glucose Level 91 mg/dL (74-106); Lipase 139 U/L (73-393); Potassium 3.4 mmol/L (3.5-5.1); Protein, Total 7.8 g/dL (6.4-8.2); Sodium Level 140 mmol/L (136-145)
[2019-09-26 22:54] LABS: Blood Morphology Comment NOT SEEN (NOT SEEN); Platelet Estimate ADEQ; Urine White Blood Cell Casts OK
--- NOTE | 2019-09-27 00:54 | EDPHYS ---
Physician Documentation [facility] Name: Nay An Age: 24 yrs Sex: Female : 1995 Arrival Date: 09/26/2019 Time: 21:46 Bed 8 Private MD: ED Physician Willard Riggs HPI: 09/27 04:37 This 24 yrs old Female presents to ER via Ambulatory with complaints of tw4 Nausea, Back Pain. 04:37 The patient presents with pain that is acute, with no known mechanism of injury. The tw4 symptoms are located in the low back. Onset: The symptoms/episode began/occurred 3 week(s) ago. The pain does not radiate. Associated signs and symptoms: Pertinent positives: nausea. The patient has not experienced similar symptoms in the past. 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 - Social history:: Smoking status: Patient/guardian denies using tobacco. - Ebola Screening: : No symptoms or risks identified at this time. ROS: 09/27 04:37 Constitutional: Negative for fever, chills, and weight loss, Eyes: Negative for injury, tw4 pain, redness, and discharge, Cardiovascular: Negative for chest pain, palpitations, and edema, Respiratory: Negative for shortness of breath, cough, wheezing, and pleuritic chest pain, Abdomen/GI: Negative for abdominal pain, nausea, vomiting, diarrhea, and constipation, Skin: Negative for injury, rash, and discoloration, Neuro: Negative for headache, weakness, numbness, tingling, and seizure, Psych: Negative for depression, anxiety, suicide ideation, homicidal ideation, and hallucinations. Exam: 04:37 Constitutional: This is a well developed, well nourished patient who is awake, alert, tw4 and in no acute distress. Head/Face: Normocephalic, atraumatic. Chest/axilla: Normal chest wall appearance and motion. Nontender with no deformity. No lesions are appreciated. Cardiovascular: Regular rate and rhythm with a normal S1 and S2. No gallops, murmurs, or rubs. Normal PMI, no JVD. No pulse deficits. Respiratory: Lungs have equal breath sounds bilaterally, clear to auscultation and percussion. No rales, rhonchi or wheezes noted. No increased work of breathing, no retractions or nasal flaring. Abdomen/GI: Soft, non-tender, with normal bowel sounds. No distension or tympany. No guarding or rebound. No evidence of tenderness throughout. Skin: Warm, dry with normal turgor. Normal color with no rashes, no lesions, and no evidence of cellulitis. MS/ Extremity: Pulses equal, no cyanosis. Neurovascular intact. Full, normal range of motion. Neuro: Awake and alert, GCS 15, oriented to person, place, time, and situation. Cranial nerves II-XII grossly intact. Motor strength 5/5 in all extremities. Sensory grossly intact. Cerebellar exam normal. Normal gait. Vital Signs: 09/26 22:05 BP 114 / 83; Pulse 96; Resp 16; Temp 97.5; Pulse Ox 100% on R/A; Weight 58.97 kg; aa1 Height 5 ft. 3 in. (160.02 cm); Pain 0/10; 23:35 BP 115 / 79; Pulse 69; Resp 17 S; Pulse Ox 100% on R/A; jd3 09/27 00:20 BP 119 / 70; Pulse 61; Resp 17; Pulse Ox 98% ; rr5 01:00 BP 111 / 75; Pulse 65; Resp 16; Temp 98; Pulse Ox 100% ; Pain 0/10; rr5 09/26 22:05 Body Mass Index 23.03 (58.97 kg, 160.02 cm) aa1 MDM: 09/26 22:05 Patient medically screened. tw4 09/27 04:37 Differential diagnosis: Cholelithiasis Fatigue Fracture Hydronephrosis Inflammatory tw4 Bowel Disease Peptic Ulcer. Data reviewed: vital signs, nurses notes. Data interpreted: Pulse oximetry: Interpretation: normal. Counseling: I had a detailed discussion with the patient and/or guardian regarding: the historical points, exam findings, and any diagnostic results supporting the discharge/admit diagnosis, lab results. Medication response: Toradol markedly relieved the patient's pain, Zofran markedly relieved the patient's nausea. Response to treatment: and as a result, I will discharge patient. Special discussion: I discussed with the patient/guardian in detail that at this point there is no indication for admission to the hospital. It is understood, however, that if the symptoms persist or worsen the patient needs to return immediately for re-evaluation. 09/26 22:03 Order name: Basic Metabolic Panel; Complete Time: 23:50 [facility] 09/26 23:50 Interpretation: Normal except: K 3.4; CL 109. [facility] 09/26 22:03 Order name: CBC with Diff; Complete Time: 23:50 [facility] 09/26 22:03 Order name: Creatinine for Radiology; Complete Time: 23:50 [facility] 09/26 22:03 Order name: Hepatic Function; Complete Time: 23:50 [facility] 09/26 23:50 Interpretation: Normal except: GLOB 3.7. [facility] 09/26 22:03 Order name: Lipase; Complete Time: 23:50 [facility] 09/26 22:03 Order name: Urine Microscopic Only; Complete Time: 23:50 [facility] 09/26 23:50 Interpretation: Normal except: SQEPI 5-10; UBACT 20-50; URBC 5-10; UWBC 10-20. [facility] 09/26 22:03 Order name: IV Saline Lock; Complete Time: 22:23 [facility] 09/26 22:15 Order name: Urine Dipstick--Ancillary (enter results); Complete Time: 23:50 [facility] 09/26 22:15 Order name: Urine --Ancillary (enter results); Complete Time: 23:50 [facility] 09/26 22:33 Order name: Urine Culture [facility] 09/26 22:54 Order name: CBC Smear Scan; Complete Time: 23:50 [facility] 09/26 22:03 Order name: Labs collected and sent; Complete Time: 22:23 [facility] 09/26 22:03 Order name: Urine Dipstick-Ancillary (obtain specimen); Complete Time: 22:14 tw4 Administered Medications: 09/26 22:20 Drug: NS 0.9% 1000 ml Route: IV; Rate: 1 bolus; Site: right antecubital; rr5 23:45 Follow up: Response: No adverse reaction; IV Status: Completed infusion; IV Intake: rr5 1000ml 22:20 Drug: Zofran 4 mg Route: IVP; Site: right antecubital; rr5 23:25 Follow up: Response: No adverse reaction rr5 22:22 Drug: TORadol 30 mg Route: IVP; Site: right antecubital; rr5 23:20 Follow up: Response: No adverse reaction rr5 Disposition: 09/27/19 00:52 Discharged to Home. Impression: Urinary tract infection, site not specified, Low back pain. - Condition is Stable. - Discharge Instructions: Chronic Back Pain, Urinary Tract Infection, Adult. - Prescriptions for Ibuprofen 800 mg Oral Tablet - take 1 tablet by ORAL route every 8 hours As needed take with food; 30 tablet. Macrobid 100 mg Oral Capsule - take 1 capsule by ORAL route every 12 hours for 10 days; 20 capsule. Cyclobenzaprine 10 mg Oral Tablet - take 1 tablet by ORAL route every 8 hours As needed; 30 tablet. Zofran 4 mg Oral Tablet - take 1 tablet by ORAL route every 12 hours As needed; 6 tablet. - Medication Reconciliation Form, Thank You Letter, Antibiotic Education, Prescription Opioid Use form. - Follow up: Private Physician; When: Upon discharge from the Emergency Department; Reason: Recheck today's complaints, Continuance of care. - Problem is new. - Symptoms have improved. Signatures: Dispatcher [employer] EDMS Becky Ordonez RN RN aa1 Willard Riggs MD MD tw4 Christian Galaviz RN RN rr5 Corrections: (The following items were deleted from the chart) 09/27 01:18 00:52 09/27/2019 00:52 Discharged to Home. Impression: Urinary tract infection, site rr5 not specified; Low back pain. Condition is Stable. Forms are Medication Reconciliation Form, Thank You Letter, Antibiotic Education, Prescription Opioid Use. Follow up: Private Physician; When: Upon discharge from the Emergency Department; Reason: Recheck today's complaints, Continuance of care. Problem is new. Symptoms have improved. tw4
--- NOTE | 2019-09-27 00:54 | ER ---
Nurse's Notes [facility] Name: Nay An Age: 24 yrs Sex: Female : 1995 Arrival Date: 09/26/2019 Time: 21:46 Bed 8 Private MD: Diagnosis: Urinary tract infection, site not specified;Low back pain Presentation: 09/26 22:02 Presenting complaint: Patient states: L low back pain x 3 weeks and nausea x 2 days. aa1 States she was diagnosed with sciatica when she was recently but it got better and she did not have the nausea before so that is what concerned her. Also reports she was diagnosed with a UTI about 3 weeks ago but finished all of the abx she was prescribed. Transition of care: patient was not received from another setting of care. Onset of symptoms was September 12, 2019. Risk Assessment: Do you want to hurt yourself or someone else? Patient reports no desire to harm self or others. Initial Sepsis Screen: Does the patient meet any 2 criteria? HR > 90 bpm. Does the patient have a suspected source of infection? No. Patient's initial sepsis screen is negative. Care prior to arrival: None. 22:02 Method Of Arrival: Ambulatory aa1 22:02 Acuity: TRAMAINE 3 aa1 Triage Assessment: 22:05 General: Appears in no apparent distress. comfortable, Behavior is calm, cooperative, aa1 appropriate for age. 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 - Social history:: Smoking status: Patient/guardian denies using tobacco. - Ebola Screening: : No symptoms or risks identified at this time. Screenin:21 Abuse screen: Denies threats or abuse. Denies injuries from another. Nutritional rr5 screening: No deficits noted. Tuberculosis screening: No symptoms or risk factors identified. Fall Risk IV access (20 points). Mental Status- Oriented to own ability (0 pts). Total Levin Fall Scale indicates No Risk (0-24 pts). Assessment: 22:05 General: Appears in no apparent distress. uncomfortable, Behavior is calm, cooperative, rr5 appropriate for age. 22:05 Pain: Complains of pain in left low back and right low back Pain does not radiate. Pain rr5 currently is 5 out of 10 on a pain scale. Quality of pain is described as aching, Pain began gradually, Is intermittent. Neuro: Level of Consciousness is awake, alert, obeys commands, Oriented to person, place, time, situation, Appropriate for age. Cardiovascular: Capillary refill < 3 seconds Patient's skin is warm and dry. Respiratory: Airway is patent Respiratory effort is even, unlabored, Respiratory pattern is regular, symmetrical. GI: Abdomen is flat, Reports nausea. : Reports been diagnosed with UTI. EENT: No signs and/or symptoms were reported regarding the EENT system. Derm: Skin is intact, is healthy with good turgor, Skin temperature is warm. Musculoskeletal: Circulation, motion, and sensation intact. Capillary refill < 3 seconds, Reports diagnosed with sciatica. 23:00 Reassessment: Patient appears in no apparent distress at this time. Patient is alert, rr5 oriented x 3, equal unlabored respirations, skin warm/dry/pink. awaiting for results. 09/27 00:00 Reassessment: Patient appears in no apparent distress at this time. Patient is alert, rr5 oriented x 3, equal unlabored respirations, skin warm/dry/pink. left lower eyelid mild swelling. ED provider aware. denies any discomfort, rashes or SOB. 01:00 Reassessment: Patient appears in no apparent distress at this time. Patient is alert, rr5 oriented x 3, equal unlabored respirations, skin warm/dry/pink. ED provider assess the lower eyelid swelling without order made, order for discharge. patient denies any SOB rashes or itchiness. discharge instruction given and explained without complaints made. Vital Signs: 09/26 22:05 BP 114 / 83; Pulse 96; Resp 16; Temp 97.5; Pulse Ox 100% on R/A; Weight 58.97 kg; aa1 Height 5 ft. 3 in. (160.02 cm); Pain 0/10; 23:35 BP 115 / 79; Pulse 69; Resp 17 S; Pulse Ox 100% on R/A; jd3 09/27 00:20 BP 119 / 70; Pulse 61; Resp 17; Pulse Ox 98% ; rr5 01:00 BP 111 / 75; Pulse 65; Resp 16; Temp 98; Pulse Ox 100% ; Pain 0/10; rr5 09/26 22:05 Body Mass Index 23.03 (58.97 kg, 160.02 cm) aa1 ED Course: 09/26 21:46 Patient arrived in ED. cf2 22:05 Willard Riggs MD is Attending Physician. tw4 22:05 Triage completed. aa1 22:05 Arm band placed on right wrist. aa1 22:05 Patient has correct armband on for positive identification. Placed in gown. Bed in low aa1 position. Call light in reach. Pulse ox on. NIBP on. 22:07 Christian Galaviz, JASWINDER is Primary Nurse. rr5 22:10 Urine collected: clean catch specimen, clear. aa1 22:14 Urine Microscopic Only Sent. aa1 22:19 Inserted saline lock: 20 gauge in right antecubital area, using aseptic technique. rr5 Blood collected. 09/27 01:03 No provider procedures requiring assistance completed. IV discontinued, intact, rr5 bleeding controlled, No redness/swelling at site. Pressure dressing applied. Administered Medications: 09/26 22:20 Drug: NS 0.9% 1000 ml Route: IV; Rate: 1 bolus; Site: right antecubital; rr5 23:45 Follow up: Response: No adverse reaction; IV Status: Completed infusion; IV Intake: rr5 1000ml 22:20 Drug: Zofran 4 mg Route: IVP; Site: right antecubital; rr5 23:25 Follow up: Response: No adverse reaction rr5 22:22 Drug: TORadol 30 mg Route: IVP; Site: right antecubital; rr5 23:20 Follow up: Response: No adverse reaction rr5 Intake: 23:45 IV: 1000ml; Total: 1000ml. rr5 Outcome: 09/27 00:52 Discharge ordered by . tw4 01:03 Discharged to home ambulatory, with family. rr5 01:03 Condition: stable 01:03 Discharge instructions given to patient, Instructed on discharge instructions, follow up and referral plans. medication usage, Demonstrated understanding of instructions, follow-up care, medications, Prescriptions given X 4. 01:18 Patient left the ED. rr5 Signatures: Becky Ordonez RN RN aa1 Dario Sellers RN RN jd3 Willard Riggs MD MD tw4 Christian Galaviz RN RN rr5 Yasmin Rene cf2 Corrections: (The following items were deleted from the chart) 00:03 12 22:45 Response: No adverse reaction; IV Status: Completed infusion; IV Intake: rr5 1000ml rr5
[2019-09-27 04:34] VITALS: BP 111/75; TEMP 98; O2SAT 100
== END 2019-09-27 01:18 | disposition home or self-care (01) ==
LOC: ER 21:42
DX: N39.0 Urinary tract infection, site not specified (principal)
CPT/HCPCS: 96361; 87088; 85025; 87086; 80048; 36415; 81025; 80076; 83690; 96375; 96374; 99284; J7030; J2405; 81003; 81015

== ENCOUNTER 2019-10-13 22:53 | Emergency (ER) | payer OTHER ==
[2019-10-14] MEDS ORDERED: ONDANSETRON 4 MG (ODT) TAB ONE (00:38)
--- NOTE | 2019-10-14 00:42 | ER ---
Nurse's Notes [facility] Name: Nay An Age: 24 yrs Sex: Female : 1995 Arrival Date: 10/13/2019 Time: 22:54 Bed 8 Private MD: Diagnosis: Acute upper respiratory infection, unspecified Presentation: 10/13 23:00 Presenting complaint: Patient states: Cough, congestion, fever, sore throat and nausea bb for approx 3 days. Transition of care: patient was not received from another setting of care. Onset of symptoms was October 10, 2019. Risk Assessment: Do you want to hurt yourself or someone else? Patient reports no desire to harm self or others. Initial Sepsis Screen: Does the patient meet any 2 criteria? No. Patient's initial sepsis screen is negative. Does the patient have a suspected source of infection? No. Patient's initial sepsis screen is negative. Care prior to arrival: Medication(s) given: Tylenol. 23:00 Method Of Arrival: Ambulatory bb 23:00 Acuity: TRAMAINE 4 bb Triage Assessment: 10/14 00:47 General: Appears in no apparent distress. Behavior is calm, cooperative. Pain: Denies vc pain. GI: Reports nausea. 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 - Social history:: Smoking status: Patient/guardian denies using tobacco, never smoked, Patient/guardian denies using alcohol, street drugs. - Ebola Screening: : Patient negative for fever greater than or equal to 101.5 degrees Fahrenheit, and additional compatible Ebola Virus Disease symptoms Patient denies exposure to infectious person Patient denies travel to an Ebola-affected area in the 21 days before illness onset. Screenin:30 Abuse screen: Denies threats or abuse. Nutritional screening: No deficits noted. vc Tuberculosis screening: No symptoms or risk factors identified. Fall Risk None identified. Assessment: 23:11 Reassessment: Patient refused strep swab. vc 23:30 GI: Abdomen is flat, non-distended. vc 23:30 : No deficits noted. EENT: Reports nasal congestion Sore throat. Derm: Skin is vc intact, is healthy with good turgor. Musculoskeletal: Range of motion: intact in all extremities. 23:30 General: Appears in no apparent distress. uncomfortable, Behavior is calm, cooperative. vc Neuro: Level of Consciousness is awake, alert, obeys commands, Oriented to person, place, time. Cardiovascular: Capillary refill < 3 seconds. Respiratory: Airway is patent Respiratory effort is even, unlabored. Vital Signs: 23:01 BP 119 / 84; Pulse 102; Resp 16; Temp 98.7; Pulse Ox 98% ; Weight 58.06 kg; Height 5 bb ft. 3 in. (160.02 cm); Pain 0/10; 10/14 00:00 BP 116 / 82; Pulse 98; Resp 18; Pulse Ox 100% on R/A; vc 10/13 23:01 Body Mass Index 22.67 (58.06 kg, 160.02 cm) bb ED Course: 10/13 22:54 Patient arrived in ED. ds1 22:56 Amarilys Vigil [facility]C [facility] kb 22:56 Del Cantu MD is Attending Physician. kb 23:01 Triage completed. bb 23:02 Arm band placed on right wrist. bb 23:10 Radha Carter, JASWINDER is Primary Nurse. vc 23:30 Patient has correct armband on for positive identification. Bed in low position. vc 10/14 00:25 No provider procedures requiring assistance completed. Patient did not have IV access vc during this emergency room visit. Administered Medications: 00:42 Drug: Zofran 4 mg Route: PO; lp1 01:05 Follow up: Response: No adverse reaction; Medication administered at discharge. vc Outcome: 00:25 Discharge ordered by . kb 00:25 Discharged to home ambulatory. vc 00:25 Condition: good 00:25 Discharge instructions given to patient, Instructed on follow up and referral plans. 00:45 Patient left the ED. vc Signatures: Amarilys Vigil FNP-C FNP-Ckb Sanford, Demi ds1 Claudine Cote RN RN bb Meg Castillo RN RN lp1 Radha Carter RN RN vc
--- NOTE | 2019-10-14 00:46 | EDPHYS ---
Physician Documentation [facility] Name: Nay An Age: 24 yrs Sex: Female : 1995 Arrival Date: 10/13/2019 Time: 22:54 Bed 8 Private MD: ED Physician Del Cantu HPI: 10/13 23:31 This 24 yrs old Female presents to ER via Ambulatory with complaints of Cough, kb Fever, Nausea. 23:31 The patient or guardian reports cough, flu symptoms, low-grade fever, myalgias. Onset: kb The symptoms/episode began/occurred 3 day(s) ago. Severity of symptoms: At their worst the symptoms were mild, moderate, in the emergency department the symptoms are unchanged. Modifying factors: The symptoms are alleviated by nothing, the symptoms are aggravated by nothing. Associated signs and symptoms: Pertinent positives: fever, rhinorrhea, sore throat. The patient has not experienced similar symptoms in the past. The patient has not recently seen a physician. 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 - Social history:: Smoking status: Patient/guardian denies using tobacco, never smoked, Patient/guardian denies using alcohol, street drugs. - Ebola Screening: : Patient negative for fever greater than or equal to 101.5 degrees Fahrenheit, and additional compatible Ebola Virus Disease symptoms Patient denies exposure to infectious person Patient denies travel to an Ebola-affected area in the 21 days before illness onset. ROS: 23:30 Neck: Negative for injury, pain, and swelling, Cardiovascular: Negative for chest pain, kb palpitations, and edema, Abdomen/GI: Negative for abdominal pain, nausea, vomiting, diarrhea, and constipation, Back: Negative for injury and pain, MS/Extremity: Negative for injury and deformity, Skin: Negative for injury, rash, and discoloration, Neuro: Negative for headache, weakness, numbness, tingling, and seizure. 23:30 Constitutional: Positive for body aches, chills, fatigue, fever, malaise, Negative for poor PO intake, weight loss. 23:30 ENT: Positive for rhinorrhea, sinus congestion, sore throat. 23:30 Respiratory: Positive for cough, Negative for dyspnea on exertion, hemoptysis, orthopnea, pleurisy, shortness of breath, sputum production, wheezing. Exam: 23:30 Constitutional: This is a well developed, well nourished patient who is awake, alert, kb and in no acute distress. Head/Face: Normocephalic, atraumatic. Neck: Trachea midline, no thyromegaly or masses palpated, and no cervical lymphadenopathy. Supple, full range of motion without nuchal rigidity, or vertebral point tenderness. No Meningismus. Chest/axilla: Normal chest wall appearance and motion. Nontender with no deformity. No lesions are appreciated. Cardiovascular: Regular rate and rhythm with a normal S1 and S2. No gallops, murmurs, or rubs. Normal PMI, no JVD. No pulse deficits. Respiratory: Lungs have equal breath sounds bilaterally, clear to auscultation and percussion. No rales, rhonchi or wheezes noted. No increased work of breathing, no retractions or nasal flaring. Abdomen/GI: Soft, non-tender, with normal bowel sounds. No distension or tympany. No guarding or rebound. No evidence of tenderness throughout. Skin: Warm, dry with normal turgor. Normal color with no rashes, no lesions, and no evidence of cellulitis. MS/ Extremity: Pulses equal, no cyanosis. Neurovascular intact. Full, normal range of motion. Neuro: Awake and alert, GCS 15, oriented to person, place, time, and situation. Cranial nerves II-XII grossly intact. Motor strength 5/5 in all extremities. Sensory grossly intact. Cerebellar exam normal. Normal gait. 23:30 ENT: External ear(s): are unremarkable, Ear canal(s): are normal, TM's: fluid levels, kb on the right, Examination of the other ear shows no obvious abnormality, Nose: is normal, Mouth: is normal, Posterior pharynx: is normal. Vital Signs: 23:01 BP 119 / 84; Pulse 102; Resp 16; Temp 98.7; Pulse Ox 98% ; Weight 58.06 kg; Height 5 bb ft. 3 in. (160.02 cm); Pain 0/10; 12/30 00:00 BP 116 / 82; Pulse 98; Resp 18; Pulse Ox 100% on R/A; vc 10/13 23:01 Body Mass Index 22.67 (58.06 kg, 160.02 cm) bb MDM: 10/13 23:05 Patient medically screened. kb 23:30 Data reviewed: vital signs, nurses notes. Data interpreted: Pulse oximetry: on room air kb is 98 %. Interpretation: normal. 10/14 00:25 Counseling: I had a detailed discussion with the patient and/or guardian regarding: the kb historical points, exam findings, and any diagnostic results supporting the discharge/admit diagnosis, lab results, the need for outpatient follow up, a family practitioner, to return to the emergency department if symptoms worsen or persist or if there are any questions or concerns that arise at home. 10/13 23:03 Order name: Flu; Complete Time: 00:28 bb Administered Medications: 00:42 Drug: Zofran 4 mg Route: PO; lp1 01:05 Follow up: Response: No adverse reaction; Medication administered at discharge. vc Disposition: 10/14/19 00:25 Discharged to Home. Impression: Acute upper respiratory infection, unspecified. - Condition is Stable. - Discharge Instructions: Upper Respiratory Infection, Adult, [id number], Viral Respiratory Infection, [id number]. - Prescriptions for Zofran 4 mg Oral Tablet - take 1 tablet by ORAL route every 6 hours As needed; 20 tablet. - Medication Reconciliation Form, Thank You Letter, Antibiotic Education, Prescription Opioid Use form. - Follow up: Emergency Department; When: As needed; Reason: Worsening of condition. Follow up: Private Physician; When: 2 - 3 days; Reason: Recheck today's complaints, Continuance of care, Re-evaluation by your physician. Addendum: 10/21/2019 07:20 Co-signature as Attending Physician, Del Cantu MD I agree with the assessment and c maloney plan of care. Signatures: Dispatcher [employer] [place], [employer]-C ANANDA-Del Umaña MD MD cha Ballard, Brenda, RN RN bb Meg Castillo, RN RN lp1 Radha Carter RN RN vc Corrections: (The following items were deleted from the chart) 12/29 23:14 23:03 Group A Streptococcus Rapid [id number] ordered. EDMS EDMS 23:31 23:30 Constitutional: This is a well developed, well nourished patient who is awake, kb alert, and in no acute distress. Head/Face: Normocephalic, atraumatic. ENT: Nares patent. No nasal discharge, no septal abnormalities noted. Tympanic membranes are normal and external auditory canals are clear. Oropharynx with no redness, swelling, or masses, exudates, or evidence of obstruction, uvula midline. Mucous membranes moist. Neck: Trachea midline, no thyromegaly or masses palpated, and no cervical lymphadenopathy. Supple, full range of motion without nuchal rigidity, or vertebral point tenderness. No Meningismus. Chest/axilla: Normal chest wall appearance and motion. Nontender with no deformity. No lesions are appreciated. Cardiovascular: Regular rate and rhythm with a normal S1 and S2. No gallops, murmurs, or rubs. Normal PMI, no JVD. No pulse deficits. Respiratory: Lungs have equal breath sounds bilaterally, clear to auscultation and percussion. No rales, rhonchi or wheezes noted. No increased work of breathing, no retractions or nasal flaring. Abdomen/GI: Soft, non-tender, with normal bowel sounds. No distension or tympany. No guarding or rebound. No evidence of tenderness throughout. Skin: Warm, dry with normal turgor. Normal color with no rashes, no lesions, and no evidence of cellulitis. MS/ Extremity: Pulses equal, no cyanosis. Neurovascular intact. Full, normal range of motion. Neuro: Awake and alert, GCS 15, oriented to person, place, time, and situation. Cranial nerves II-XII grossly intact. Motor strength 5/5 in all extremities. Sensory grossly intact. Cerebellar exam normal. Normal gait. kb 10/14 00:45 00:25 10/14/2019 00:25 Discharged to Home. Impression: Acute upper respiratory vc infection, unspecified. Condition is Stable. Forms are Medication Reconciliation Form, Thank You Letter, Antibiotic Education, Prescription Opioid Use. Follow up: Emergency Department; When: As needed; Reason: Worsening of condition. Follow up: Private Physician; When: 2 - 3 days; Reason: Recheck today's complaints, Continuance of care, Re-evaluation by your physician. kb
[2019-10-14 01:06] VITALS: BP 119/84; TEMP 98.7; O2SAT 98
== END 2019-10-14 00:45 | disposition home or self-care (01) ==
LOC: ER 22:53
DX: J06.9 Acute upper respiratory infection, unspecified (principal); R50.9 Fever, unspecified
CPT/HCPCS: 87804; 99283

== ENCOUNTER 2019-10-18 22:45 | Emergency (ER) | payer OTHER ==
[2019-10-18] MEDS ORDERED: ONDANSETRON 4 MG/2 ML VIAL ONE (23:59)
[2019-10-19] MEDS ORDERED: NA CHLORIDE 0.9% 1,000 ML ONE
[2019-10-19] MEDS ORDERED: FAMOTIDINE 20 MG/2 ML VIAL IV ONE
[2019-10-19 00:25] LABS: Absolute Lymphocytes (CBC) 1.6 K/uL (0.7-4.9); Basophils % 0.3 % (0-1.3); Hematocrit 43.9 % (36.0-45.0); Lymphocytes % 29.4 % (15.3-44.8); MPV 10.2 fL (7.6-11.3)
[2019-10-19 00:35] LABS: ALT/SGPT 31 U/L (12-78); AST/SGOT 20 U/L (15-37); Alkaline Phosphatase 71 U/L (45-117); BUN Blood Urea Nitrogen 13 mg/dL (7-18); Bicarbonate 17 mmol/L (21-32); Bilirubin Direct 0.1 mg/dL (0-0.2); Bilirubin Total 0.4 mg/dL (0.2-1.0); Glucose Level 92 mg/dL (74-106); Lipase 132 U/L (73-393); Potassium 3.4 mmol/L (3.5-5.1); Protein, Total 8.2 g/dL (6.4-8.2); Sodium Level 139 mmol/L (136-145)
[2019-10-19 00:48] LABS: Urine Blood 2+ (NEG); Urine Glucose NEGATIVE (NEG); Urine Protein 2+ (NEG); Urine Specific Gravity >1.030 (1.005-1.030); Urine pH 6.5 (5.0-7.0)
[2019-10-19 00:49] LABS: Urine Bacteria <20 /HPF (<20); Urine Culture Reflex Order NOT NEEDED
[2019-10-19] MEDS ORDERED: POTASSIUM 25 MEQ EFFERV TAB ONE (01:14)
--- NOTE | 2019-10-19 02:29 | ER ---
Nurse's Notes [facility] Name: Nay An Age: 24 yrs Sex: Female : 1995 Arrival Date: 10/18/2019 Time: 22:47 Bed 2 Private MD: Diagnosis: Nausea and vomiting;Dizziness and giddiness;Dehydration Presentation: 10/18 22:51 Presenting complaint: Patient states: "I was here 4 or 5 days ago and they tested me aj1 positive for the flu, and today I just have no appetite, I've lost a lot of weight. I'm really dizzy when I stand up" Patient reports nausea and vomiting. Denies diarrhea. Reports cough and fever have resolved. Transition of care: patient was not received from another setting of care. Onset of symptoms was 2019. Risk Assessment: Do you want to hurt yourself or someone else? Patient reports no desire to harm self or others. Care prior to arrival: None. 22:51 Method Of Arrival: Ambulatory aj1 22:51 Acuity: TRAMAINE 2 aj1 23:00 Initial Sepsis Screen: Does the patient meet any 2 criteria? HR > 90 bpm. No. Patient's vc initial sepsis screen is negative. Does the patient have a suspected source of infection? No. Patient's initial sepsis screen is negative. Triage Assessment: 22:53 General: Appears in no apparent distress. uncomfortable, Behavior is calm, cooperative, aj1 appropriate for age. Pain: Complains of pain in epigastric area. Neuro: Level of Consciousness is awake, alert, obeys commands. Cardiovascular: Patient's skin is warm and dry. GI: Reports nausea, vomiting. 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 - Social history:: Smoking status: Patient/guardian denies using tobacco. - Ebola Screening: : Patient denies travel to an Ebola-affected area in the 21 days before illness onset. Screenin:00 Abuse screen: Denies threats or abuse. Nutritional screening: Has had N/V for 3 or more vc days. Tuberculosis screening: No symptoms or risk factors identified. Fall Risk IV access (20 points). Gait- Weak (10 pts.). Total Levin Fall Scale indicates Low Risk Score (25-44 pts). Fall prevention measures have been instituted. Frequent Obs/Assesments occuring. Assessment: 23:00 General: Appears in no apparent distress. uncomfortable, slender, Behavior is calm, vc cooperative. Pain: Denies pain. Neuro: Level of Consciousness is awake, alert, obeys commands, Oriented to person, place, time. Cardiovascular: Capillary refill < 3 seconds Patient's skin is warm and dry. Rhythm is sinus tachycardia. Respiratory: Airway is patent Respiratory effort is even, unlabored. GI: Reports intolerance of fluids, intolerance of food, nausea, vomiting, since for the last four months. 23:00 : No signs and/or symptoms were reported regarding the genitourinary system. EENT: No vc signs and/or symptoms were reported regarding the EENT system. Derm: Skin is intact, Skin is dry, Skin is pink, warm \\T\\ dry. Musculoskeletal: Range of motion: intact in all extremities. 23:00 GI: Bowel sounds present X 4 quads. hyperactive in right upper quadrant, left upper vc quadrant, right lower quadrant and left lower quadrant Abd is soft and non tender. 23:15 Reassessment: Patient states that she has been nauseous and barely able to eat since vc giving to her son 4 months ago. Patient went to [facility] 4 days ago where she was diagnosed with flu B. Patient states she has lost 13 pounds in 4 days. She states when she stands up she feels dizzy and can feel her heart beating in her chest. 10/19 00:00 Reassessment: Patient and/or family updated on plan of care and expected duration. Pain vc level reassessed. Patient is alert, oriented x 3, equal unlabored respirations, skin warm/dry/pink. Patient given warm blanket, significant other at bedside. 00:35 Reassessment: Family request to speak to provider, provider at bedside at this time. vc 01:00 Reassessment: Patient and/or family updated on plan of care and expected duration. Pain vc level reassessed. Patient is alert, oriented x 3, equal unlabored respirations, skin warm/dry/pink. Patient states she feels better after receiving fluids. 02:00 Reassessment: Patient and/or family updated on plan of care and expected duration. Pain vc level reassessed. Patient educated on the importance of following up with her primary physician. Patient and significant other verbalized understanding. Vital Signs: 10/18 22:53 BP 107 / 83; Pulse 152; Resp 20; Temp 97.2; Pulse Ox 98% on R/A; Weight 52.16 kg (R); aj1 Height 5 ft. 3 in. (160.02 cm) (R); 10/19 00:30 BP 133 / 77; Pulse 105; Resp 14; Pulse Ox 100% on R/A; vc 01:00 BP 118 / 84; Pulse 107; Resp 14; Pulse Ox 100% on R/A; vc 02:00 BP 109 / 82; Pulse 106; Resp 16; Pulse Ox 100% on R/A; vc 10/18 22:53 Body Mass Index 20.37 (52.16 kg, 160.02 cm) aj ED Course: 10/18 22:47 Patient arrived in ED. es 22:52 Triage completed. aj1 22:53 Arm band placed on Patient placed in an exam room. aj1 23:00 Patient has correct armband on for positive identification. Bed in low position. Call vc light in reach. Side rails up X 1. 23:02 Radha Carter, RN is Primary Nurse. vc 23:17 Del Barone PA is PHCP. cp 23:17 Kwadwo Houston MD is Attending Physician. cp 10/19 00:13 Urine --Ancillary (enter results) Sent. vc 00:13 Urine Dipstick--Ancillary (enter results) Sent. vc 00:14 Magnesium Sent. vc 00:14 Urine Microscopic Only Sent. vc 00:14 Basic Metabolic Panel Sent. vc 00:14 CBC with Diff Sent. vc 00:14 Creatinine for Radiology Sent. vc 00:14 Hepatic Function Sent. vc 00:14 Lipase Sent. vc 01:49 CXR XRAY In Process Unspecified. EDMS 02:18 No provider procedures requiring assistance completed. IV discontinued, intact, vc bleeding controlled, No redness/swelling at site. Pressure dressing applied. Administered Medications: 00:00 Drug: NS 0.9% 1000 ml Route: IV; Rate: 1 bolus; Site: left antecubital; vc 00:00 Drug: Zofran 4 mg Route: IVP; Site: right antecubital; vc 00:16 Follow up: Response: No adverse reaction vc 00:00 Drug: Pepcid 20 mg Route: IVP; Site: right antecubital; vc 00:16 Follow up: Response: No adverse reaction vc 01:47 Drug: Potassium Effervescent Tablet 25 mEq Route: PO; vc Outcome: 01:36 Discharge ordered by MD. cp 02:18 Discharged to home ambulatory. vc 02:18 Condition: good 02:18 Discharge instructions given to patient, significant other, Instructed on discharge instructions, follow up and referral plans. medication usage, Demonstrated understanding of instructions, follow-up care, medications, Prescriptions given X 3. 02:19 Patient left the ED. vc Signatures: Dispatcher [employer] Daniela Lion RN RN ajRadha Hammonds Corey, PA PA cp Calcote, Vanessa, RN RN vc
--- NOTE | 2019-10-19 02:31 | EDPHYS ---
Physician Documentation [facility] Name: Nay An Age: 24 yrs Sex: Female : 1995 Arrival Date: 10/18/2019 Time: 22:47 Bed 2 Private MD: ED Physician Kwadwo Houston HPI: 10/18 23:40 This 24 yrs old Female presents to ER via Ambulatory with complaints of cp Dizziness, Abdominal Pain, Decreased Appetite. 23:40 The patient presents with dizziness, lightheadedness. cp 23:40 Onset: The symptoms/episode began/occurred 5 day(s) ago. cp 23:40 Associated signs and symptoms: Pertinent positives: abdominal pain, nausea, vomiting, cp Pertinent negatives: chest pain. Patient's baseline: Neuro: alert and fully oriented, Motor: no deficits, Ambulation: walks without assistance, Speech: normal. 23:45 Patient reports she had positive flu test after being tested at [facility] 4 days ago and is cp currently taking prescribed tamiflu. Patient was seen in [facility] emergency department 10-14-2019 and had negative flu test. 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 - Social history:: Smoking status: Patient/guardian denies using tobacco. - Ebola Screening: : Patient denies travel to an Ebola-affected area in the 21 days before illness onset. ROS: 23:50 Constitutional: Positive for fatigue, Negative for body aches, chills, fever, poor PO cp intake. 23:50 Eyes: Negative for injury, pain, redness, and discharge. cp 23:50 ENT: Negative for drainage from ear(s), ear pain, sore throat, difficulty swallowing, difficulty handling secretions. 23:50 Cardiovascular: Negative for chest pain, edema. 23:50 Respiratory: Negative for cough, shortness of breath, wheezing. 23:50 Abdomen/GI: Positive for abdominal pain, nausea, anorexia, Negative for vomiting, diarrhea, constipation. 23:50 Back: Negative for pain at rest, pain with movement, radiated pain. 23:50 : Negative for urinary symptoms. 23:50 Skin: Negative for rash. 23:50 Neuro: Positive for dizziness, weakness, Negative for altered mental status, headache. 23:50 All other systems are negative. Exam: 23:55 Constitutional: The patient appears in no acute distress, alert, awake, cp non-diaphoretic, non-toxic, well developed, well nourished. 23:55 Head/Face: Normocephalic, atraumatic. cp 23:55 Eyes: Periorbital structures: appear normal, Pupils: equal, round, and reactive to light and accomodation, Conjunctiva: normal, no exudate, no injection, Sclera: no appreciated abnormality, Lids and lashes: appear normal, bilaterally. 23:55 ENT: External ear(s): are unremarkable, Ear canal(s): are normal, clear, TM's: are normal, no evidence of bulging, no erythema, Nose: is normal, Mouth: Lips: moist, Oral mucosa: pink and intact, moist, Posterior pharynx: is normal, airway is patent, no erythema, no exudate. 23:55 Neck: ROM/movement: is normal, is supple, without pain, no range of motions limitations, no meningismus, no nuchal rigidity. 23:55 Chest/axilla: Inspection: normal, Palpation: is normal, no crepitus, no tenderness. 23:55 Cardiovascular: Rate: tachycardic, Rhythm: regular, Edema: is not appreciated, JVD: is not appreciated. 23:55 Respiratory: the patient does not display signs of respiratory distress, Respirations: normal, no use of accessory muscles, no retractions, no splinting, no tachypnea, labored breathing, is not present, Breath sounds: are clear throughout, no decreased breath sounds, no stridor, no wheezing. 23:55 Abdomen/GI: Inspection: abdomen appears normal, Bowel sounds: active, all quadrants, Palpation: soft, in all quadrants, mild abdominal tenderness, in the epigastric area, right upper quadrant and left upper quadrant, voluntary guarding, is not appreciated, involuntary guarding, is not appreciated. 23:55 Back: pain, is absent, ROM is normal. 23:55 Skin: cellulitis, is not appreciated, no rash present. 23:55 Neuro: Orientation: is normal, Mentation: is normal, Cerebellar function: is grossly normal, Motor: moves all fours, strength is normal, Sensation: is normal. Vital Signs: 22:53 BP 107 / 83; Pulse 152; Resp 20; Temp 97.2; Pulse Ox 98% on R/A; Weight 52.16 kg (R); aj1 Height 5 ft. 3 in. (160.02 cm) (R); 10/19 00:30 BP 133 / 77; Pulse 105; Resp 14; Pulse Ox 100% on R/A; vc 01:00 BP 118 / 84; Pulse 107; Resp 14; Pulse Ox 100% on R/A; vc 02:00 BP 109 / 82; Pulse 106; Resp 16; Pulse Ox 100% on R/A; vc 10/18 22:53 Body Mass Index 20.37 (52.16 kg, 160.02 cm) aj1 MDM: 10/18 23:23 Patient medically screened. cp 10/19 00:00 Differential diagnosis: hypovolemia, idiopathic dizziness, dehydration, cardiac cp arrythmia, electrolyte abnormality. 01:35 Data reviewed: vital signs, nurses notes, lab test result(s), EKG, and as a result, I will discharge patient. 01:35 Counseling: I had a detailed discussion with the patient and/or guardian regarding: the cp historical points, exam findings, and any diagnostic results supporting the discharge/admit diagnosis, lab results, radiology results, to return to the emergency department if symptoms worsen or persist or if there are any questions or concerns that arise at home. Response to treatment: the patient's symptoms have markedly improved after treatment, and as a result, I will discharge patient. 10/18 23:39 Order name: Basic Metabolic Panel; Complete Time: 00:50 cp 10/19 00:51 Interpretation: Normal except: K 3.4; CL 108; CO2 17. cp 10/18 23:39 Order name: CBC with Diff; Complete Time: 00:50 cp 10/19 00:52 Interpretation: Normal except: RBC 6.00; MCV 73.2; MCH 24.0; RDW 16.1. cp 10/18 23:39 Order name: Creatinine for Radiology; Complete Time: 00:50 cp 10/18 23:39 Order name: Hepatic Function; Complete Time: 00:50 cp 10/19 01:05 Interpretation: Normal except: GLOB 4.2; A/G 1.0. cp 10/18 23:39 Order name: Lipase; Complete Time: 00:50 cp 10/18 23:39 Order name: Urine Microscopic Only; Complete Time: 01:03 cp 10/19 01:04 Interpretation: Normal except: URBC 10-20; SQEPI 5-10; URCRY MANY. cp 10/18 23:39 Order name: Magnesium; Complete Time: 00:50 cp 10/19 00:09 Order name: Urine Dipstick--Ancillary (enter results) cm6 10/19 00:09 Order name: Urine --Ancillary (enter results) cm6 10/19 00:18 Order name: CXR XRAY cp 10/19 00:49 Order name: Urine --Ancillary EDMS 10/19 00:49 Order name: Urine Dipstick-Ancillary; Complete Time: 01:04 EDMS 10/19 01:05 Interpretation: Normal except: UKET 4+; UBLD 2+; UPROT 2+. cp 10/18 23:39 Order name: IV Saline Lock; Complete Time: 00:15 cp 10/18 23:39 Order name: Labs collected and sent; Complete Time: 00:15 cp 10/18 23:39 Order name: EKG - Nurse/Tech; Complete Time: 00:14 cp 10/19 01:08 Order name: PO challenge; Complete Time: 01:45 cp EC:13 Rate is 116 beats/min. Rhythm is regular. VA interval is normal. QRS interval is cp normal. QT interval is normal. T waves are Inverted in leads II, aVF, V3. Interpreted by me. Reviewed by me. Administered Medications: 00:00 Drug: NS 0.9% 1000 ml Route: IV; Rate: 1 bolus; Site: left antecubital; vc 00:00 Drug: Zofran 4 mg Route: IVP; Site: right antecubital; vc 00:16 Follow up: Response: No adverse reaction vc 00:00 Drug: Pepcid 20 mg Route: IVP; Site: right antecubital; vc 00:16 Follow up: Response: No adverse reaction vc 01:47 Drug: Potassium Effervescent Tablet 25 mEq Route: PO; vc Disposition: 01/04/20 01:36 Discharged to Home. Impression: Nausea and vomiting, Dizziness and giddiness, Dehydration. - Condition is Stable. - Discharge Instructions: Dehydration, Adult, Dizziness, Nausea and Vomiting, Adult, Hypokalemia. - Prescriptions for Zofran 4 mg Oral Tablet - take 1 tablet by ORAL route every 12 hours As needed; 20 tablet. promethazine 25 mg Oral Tablet - take 1 tablet by ORAL route every 6 hours As needed; 20 tablet. Pepcid 20 mg Oral Tablet - take 1 tablet by ORAL route every 12 hours for 10 days; 20 tablet. - Medication Reconciliation Form, Thank You Letter, Antibiotic Education, Prescription Opioid Use form. - Follow up: Private Physician; When: 2 - 3 days; Reason: Recheck today's complaints. - Problem is new. - Symptoms have improved. Addendum: 10/20/2019 06:58 Co-signature as Attending Physician, Kwadwo Houston MD Available for consultation at p s1 all times. Signing chart for administrative purposes. Not an endorsement of care. . Signatures: Dispatcher [employer] EDDaniela Williamson RN RN aj1 Del Barone PA PA Kwadwo Galindo MD MD ps1 Radha Carter RN RN vc Corrections: (The following items were deleted from the chart) 10/19 00:16 00:15 This 24 yrs old Female presents to ER via Ambulatory with complaints of cp Dizziness, Abdominal Pain, Decreased Appetite. cp 02:19 01:36 10/19/2019 01:36 Discharged to Home. Impression: Nausea and vomiting; Dizziness vc and giddiness; Dehydration. Condition is Stable. Forms are Medication Reconciliation Form, Thank You Letter, Antibiotic Education, Prescription Opioid Use. Follow up: Private Physician; When: 2 - 3 days; Reason: Recheck today's complaints. Problem is new. Symptoms have improved. cp 10/20 02:10/18 22:55 Constitutional: Positive for fatigue, Negative for body aches, chills, cp fever, cp 10/20 02:00 10/18 22:55 Eyes: Negative for injury, pain, redness, and discharge, cp cp 10/20 02:00 01 22:55 ENT: Negative for drainage from ear(s), ear pain, sore throat, difficulty cp swallowing, difficulty handling secretions, cp 10/20 02:10/18 22:55 Cardiovascular: Negative for chest pain, cp cp 10/20 02:10/18 22:55 Respiratory: Negative for cough, shortness of breath, wheezing, cp cp 10/20 01:10/18 22:55 Abdomen/GI: Positive for abdominal pain, nausea, anorexia, Negative for cp vomiting, diarrhea, constipation, cp 10/20 02:10/18 22:55 Back: Negative for radiated pain, cp cp 10/20 01:10/18 22:55 Skin: Negative for rash, cp cp 10/20 01:10/18 22:55 Neuro: Positive for dizziness, weakness, Negative for altered mental cp status, headache, cp 10/20 02:10/18 22:55 All other systems are negative, cp cp
[2019-10-19 03:21] VITALS: TEMP 97.2
[2019-10-19 03:22] VITALS: BP 133/77; O2SAT 100
--- NOTE | 2019-10-19 08:39 | RAD REPORT ---
EXAM DESCRIPTION: RAD - Chest Single View - 10/19/2019 12:37 am CLINICAL HISTORY: Epigastric pain, nausea and vomiting, influenza COMPARISON: None. TECHNIQUE: AP portable chest image was obtained . FINDINGS: Lungs are clear. Heart and vasculature are normal. No measurable pleural effusion and no p neumothorax. No acute bony abnormality seen. No acute aortic findings suspected. IMPRESSION: No acute cardiopulmonary process.
--- NOTE | 2019-10-22 16:45 | EKG ---
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
== END 2019-10-19 02:19 | disposition home or self-care (01) ==
LOC: ER 22:45
DX: R11.2 Nausea with vomiting, unspecified (principal); E86.0 Dehydration
CPT/HCPCS: 93005; 85025; 80048; 36415; 83735; 81025; 80076; 81003; 81015; 83690; 71045; 96375; 96374; 99284; J2405

== ENCOUNTER 2019-11-04 23:26 | Emergency (ER) | payer OTHER ==
[2019-11-05 00:13] LABS: Urine Blood NEGATIVE (NEG); Urine Glucose NEGATIVE (NEG); Urine Protein NEGATIVE (NEG); Urine Specific Gravity >1.030 (1.005-1.030)
[2019-11-05] MEDS ORDERED: NA CHLORIDE 0.9% 1,000 ML ONE (00:39)
[2019-11-05 00:52] LABS: Urine Culture Reflex Order NOT NEEDED
[2019-11-05 00:53] LABS: Urine Bacteria <20 /HPF (<20); Urine RBC NONE SEEN /HPF (NONE SEEN)
[2019-11-05 00:53] LABS: Absolute Lymphocytes (CBC) 0.9 K/uL (0.7-4.9); Basophils % 0.1 % (0-1.3); Hematocrit 38.3 % (36.0-45.0); Lymphocytes % 6.6 % (15.3-44.8); RBC Red Blood Cell Count 5.18 M/uL (3.86-4.86)
[2019-11-05] MEDS ORDERED: DICYCLOMINE HCL 10 MG CAP ONE ×2 (01:03→01:06)
[2019-11-05 01:05] LABS: ALT/SGPT 27 U/L (12-78); AST/SGOT 16 U/L (15-37); Albumin 4.1 g/dL (3.4-5.0); Alkaline Phosphatase 69 U/L (45-117); BUN Blood Urea Nitrogen 12 mg/dL (7-18); Bicarbonate 26 mmol/L (21-32); Bilirubin Direct 0.1 mg/dL (0-0.2); Bilirubin Total 0.4 mg/dL (0.2-1.0); Glucose Level 101 mg/dL (74-106); Potassium 3.6 mmol/L (3.5-5.1); Protein, Total 7.7 g/dL (6.4-8.2); Sodium Level 140 mmol/L (136-145)
[2019-11-05 01:33] LABS: Blood Morphology Comment NOT SEEN (NOT SEEN); Platelet Estimate ADEQ
[2019-11-05] MEDS ORDERED: METRONIDAZOLE 500mg IVPB 500 MG/100 ML BAG IV ONE (02:51)
[2019-11-05] MEDS ORDERED: CIPROFLOXACIN 400mg IV 400 MG/200 ML BAG IV ONE (02:51)
[2019-11-05] MEDS ORDERED: BISACODYL E.C. 5 MG TAB PO ONE (03:21)
[2019-11-05] MEDS ORDERED: BISACODYL 10 MG RECTAL SUPP ONE (03:21)
--- NOTE | 2019-11-05 03:24 | ER ---
Nurse's Notes [facility] Name: Nay An Age: 24 yrs Sex: Female : 1995 Arrival Date: 11/04/2019 Time: 23:36 Bed 14 Private MD: Diagnosis: Fecal impaction;Lower abdominal pain, unspecified Presentation: 11/04 23:45 Presenting complaint: Patient states: C/O abdominal pain and diarrhea that started this afternoon. Pt states having more than 20 loose bowel movements that is mucoidal. Transition of care: patient was not received from another setting of care. Onset of symptoms was November 04, 2019. Risk Assessment: Do you want to hurt yourself or someone else? Patient reports no desire to harm self or others. Initial Sepsis Screen: Does the patient meet any 2 criteria? HR > 90 bpm. Yes Does the patient have a suspected source of infection? Yes: Acute abdominal pain. Care prior to arrival: None. 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 - Social history:: Smoking status: Patient/guardian denies using. - Ebola Screening: : Patient negative for fever greater than or equal to 101.5 degrees Fahrenheit, and additional compatible Ebola Virus Disease symptoms Patient denies exposure to infectious person. Screenin:49 Abuse screen: Denies threats or abuse. Denies injuries from another. Nutritional screening: No deficits noted. Tuberculosis screening: No symptoms or risk factors identified. Fall Risk None identified. Assessment: 23:50 General: Appears in no apparent distress. Behavior is calm, cooperative, appropriate for age. Pain: Complains of pain in right lower quadrant and left lower quadrant Pain does not radiate. Pain currently is 8 out of 10 on a pain scale. Quality of pain is described as crampy, Pain began this afternoon. Neuro: Level of Consciousness is awake, alert, obeys commands, Oriented to person, place, time, situation, Appropriate for age. Cardiovascular: Heart tones S1 S2. Respiratory: Airway is patent Respiratory effort is even, unlabored, Respiratory pattern is regular, symmetrical, Breath sounds are clear bilaterally. GI: Abdomen is flat, non-distended, Bowel sounds present X 4 quads. Abd is soft and non tender X 4 quads. Reports lower abdominal pain, cramping, diarrhea. : No signs and/or symptoms were reported regarding the genitourinary system. EENT: No signs and/or symptoms were reported regarding the EENT system. Derm: Skin is intact, is healthy with good turgor, Skin is pink, warm \T\ dry. normal. Musculoskeletal: Circulation, motion, and sensation intact. 11/05 01:15 Reassessment: Patient appears in no apparent distress at this time. No changes from previously documented assessment. Patient and/or family updated on plan of care and expected duration. Pain level reassessed. Patient is alert, oriented x 3, equal unlabored respirations, skin warm/dry/pink. 03:00 Reassessment: Patient appears in no apparent distress at this time. No changes from previously documented assessment. Patient is alert, oriented x 3, equal unlabored respirations, skin warm/dry/pink. Patient denies pain at this time. 03:03 General: Appears in no apparent distress. Behavior is calm, cooperative, appropriate jv1 for age. Pain: Complains of pain in abdomen and left lower quadrant and right lower quadrant Pain does not radiate. Pain currently is 4 out of 10 on a pain scale. Quality of pain is described as crampy, Pain began this afternoon. Neuro: Level of Consciousness is awake, alert, obeys commands, Oriented to person, place, time, situation, Appropriate for age. Cardiovascular: Heart tones S1 S2. Respiratory: Airway is patent Respiratory effort is even, unlabored, Respiratory pattern is regular, symmetrical. GI: Abdomen is flat, non-distended, Bowel sounds present X 4 quads. Abd is soft and non tender Reports lower abdominal pain, cramping, diarrhea. : No signs and/or symptoms were reported regarding the genitourinary system. EENT: No signs and/or symptoms were reported regarding the EENT system. Derm: Skin is intact, is healthy with good turgor, Skin is pink, warm \T\ dry. normal. Musculoskeletal: Circulation, motion, and sensation intact. 03:08 Reassessment: assumed pt care. obtained report from Luis Azar RN. jv1 03:39 Reassessment: provider in the room with patient. jv1 03:40 Reassessment: discharge was ordered but still awaiting to complete infusion of ordered jv1 ciprofloxacin IV. 04:25 Reassessment: Patient appears in no apparent distress at this time. No changes from jv1 previously documented assessment. Patient and/or family updated on plan of care and expected duration. Pain level reassessed. Patient is alert, oriented x 3, equal unlabored respirations, skin warm/dry/pink. Patient denies pain at this time. Vital Signs: 11/04 23:48 BP 130 / 81; Pulse 115; Resp 18; Temp 98.3; Pulse Ox 100% ; Weight 55.34 kg; Height 5 wh ft. 3 in. (160.02 cm); Pain 8/10; 11/05 01:30 BP 152 / 98; Pulse 109; Resp 18; Pulse Ox 100% ; 02:59 BP 137 / 93; Pulse 88; Resp 18; Temp 98.1; Pulse Ox 100% ; Pain 0/10; jv1 03:00 BP 135 / 78; Pulse 93; Resp 18; Pulse Ox 100% on R/A; 04:33 BP 132 / 72; Pulse 89; Resp 18; Temp 98.5; Pulse Ox 98% ; Pain 0/10; jv1 11/04 23:48 Body Mass Index 21.61 (55.34 kg, 160.02 cm) ED Course: 11/04 23:36 Patient arrived in ED. es 23:37 Luis Azar is Primary Nurse. wh 23:40 Missy Upton FNP-C is PHCP. snw 23:40 Del Cantu MD is Attending Physician. snw 23:47 Triage completed. wh 23:49 Arm band placed on right wrist. wh 23:51 Patient has correct armband on for positive identification. Bed in low position. Call light in reach. Side rails up X 1. Pulse ox on. NIBP on. 11/05 02:29 CT Abd/Pelvis - IV Contrast Only In Process Unspecified. EDMS 04:54 No provider procedures requiring assistance completed. IV discontinued, intact, jv1 bleeding controlled, No redness/swelling at site. Pressure dressing applied. Administered Medications: 00:34 Drug: NS 0.9% 1000 ml Route: IV; Rate: 1 bolus; Site: right antecubital; 02:54 Follow up: Response: No adverse reaction; IV Status: Completed infusion 01:19 Drug: Bentyl 20 mg Route: PO; 02:54 Follow up: Response: No adverse reaction 02:57 Drug: Flagyl 500 mg Volume: 100 ml; Route: IVPB; Rate: 200 ml/hr; Infused Over: 30 jv1 mins; Site: right antecubital; 03:39 Follow up: Response: No adverse reaction; IV Status: Completed infusion jv1 03:38 Drug: Cipro 400 mg Volume: 200 ml; Route: IVPB; Infused Over: 60 mins; Site: right jv1 antecubital; 04:52 Follow up: Response: No adverse reaction; IV Status: Completed infusion jv1 03:38 Drug: Dulcolax Suppository 10 mg Route: UT; jv1 04:52 Follow up: Response: No adverse reaction jv1 03:38 Drug: Bisacodyl 10 mg Route: PO; jv1 04:51 Follow up: Response: No adverse reaction jv1 Outcome: 03:23 Discharge ordered by . snw 04:54 Discharged to home ambulatory. jv1 04:54 Condition: improved 04:54 Discharge instructions given to patient, significant other, Instructed on discharge instructions, follow up and referral plans. medication usage, Demonstrated understanding of instructions, follow-up care, medications. 04:55 Patient left the ED. jv1 Addendum: 11/11/2019 07:30 Addendum: Culture Results: Positive stool culture. Bacteria is resistant to, has i w intermediate sensitivity, or is not tested against prescribed antibiotics. Report given to ALMA for further evaluation and then to aircraft structural repairer for follow up with patient. Phone call Attempt #1 pt did not answer, left voice mail. Signatures: Dispatcher [employer] Missy Peralta, ANANDA-C BELT BACK OPERATOR-Radha Hunter Irene, RN RN uLis Azar Gifty Gutiérrez RN RN jv1
--- NOTE | 2019-11-05 03:24 | EDPHYS ---
Physician Documentation [facility] Name: Nay An Age: 24 yrs Sex: Female : 1995 Arrival Date: 11/04/2019 Time: 23:36 Bed 14 Private MD: ED Physician Del Cantu HPI: 11/05 01:15 This 24 yrs old Female presents to ER via Ambulatory with complaints of snw Abdominal Pain, Diarrhea. 01:15 The patient presents with abdominal pain right lower quadrant. Onset: The snw symptoms/episode began/occurred gradually, 3 week(s) ago, and became persistent. The symptoms do not radiate. Associated signs and symptoms: Pertinent positives: diarrhea, nausea. The symptoms are described as crampy. Modifying factors: The symptoms are alleviated by nothing. Severity of pain: At its worst the pain was severe in the emergency department the pain is unchanged. The patient has experienced similar episodes in the past, multiple times. seeing GI on . DIAMOND CLEAVER: 11/04 23:48 LMP 10/2019 Historical: - Allergies: 23:48 No Known Allergies; - Home Meds: 23:48 Zofran Oral [Active]; - PMHx: 23:48 None; - PSHx: 23:48 None; - Immunization history:: Adult Immunizations not up to date. - Social history:: Smoking status: Patient/guardian denies using. - Ebola Screening: : Patient negative for fever greater than or equal to 101.5 degrees Fahrenheit, and additional compatible Ebola Virus Disease symptoms Patient denies exposure to infectious person. ROS: 11/05 01:14 Constitutional: Negative for fever, chills, and weight loss, Eyes: Negative for injury, snw pain, redness, and discharge, ENT: Negative for injury, pain, and discharge, Neck: Negative for injury, pain, and swelling, Cardiovascular: Negative for chest pain, palpitations, and edema, Respiratory: Negative for shortness of breath, cough, wheezing, and pleuritic chest pain, Back: Negative for injury and pain, : Negative for injury, bleeding, discharge, and swelling, MS/Extremity: Negative for injury and deformity, Skin: Negative for injury, rash, and discoloration, Neuro: Negative for headache, weakness, numbness, tingling, and seizure. Abdomen/GI: Positive for abdominal pain, nausea, diarrhea, diarrhea is mucoid with small amount of blood. Exam: 01:13 Constitutional: This is a well developed, well nourished patient who is awake, alert, snw and in no acute distress. Head/Face: Normocephalic, atraumatic. Eyes: Pupils equal round and reactive to light, extra-ocular motions intact. Lids and lashes normal. Conjunctiva and sclera are non-icteric and not injected. Cornea within normal limits. Periorbital areas with no swelling, redness, or edema. ENT: Nares patent. No nasal discharge, no septal abnormalities noted. Tympanic membranes are normal and external auditory canals are clear. Oropharynx with no redness, swelling, or masses, exudates, or evidence of obstruction, uvula midline. Mucous membranes moist. Neck: Trachea midline, no thyromegaly or masses palpated, and no cervical lymphadenopathy. Supple, full range of motion without nuchal rigidity, or vertebral point tenderness. No Meningismus. Chest/axilla: Normal chest wall appearance and motion. Nontender with no deformity. No lesions are appreciated. Cardiovascular: Tachycardic rate and rhythm with a normal S1 and S2. No gallops, murmurs, or rubs. Normal PMI, no JVD. No pulse deficits. Respiratory: Lungs have equal breath sounds bilaterally, clear to auscultation and percussion. No rales, rhonchi or wheezes noted. No increased work of breathing, no retractions or nasal flaring. Back: No spinal tenderness. No costovertebral tenderness. Full range of motion. Skin: Warm, dry with normal turgor. Normal color with no rashes, no lesions, and no evidence of cellulitis. MS/ Extremity: Pulses equal, no cyanosis. Neurovascular intact. Full, normal range of motion. Neuro: Awake and alert, GCS 15, oriented to person, place, time, and situation. Cranial nerves II-XII grossly intact. Motor strength 5/5 in all extremities. Sensory grossly intact. Cerebellar exam normal. Normal gait. Psych: Awake, alert, with orientation to person, place and time. Behavior, mood, and affect are within normal limits. 01:13 Abdomen/GI: Inspection: abdomen appears normal, Bowel sounds: normal, Palpation: moderate abdominal tenderness, in the right lower quadrant. Vital Signs: 11/04 23:48 BP 130 / 81; Pulse 115; Resp 18; Temp 98.3; Pulse Ox 100% ; Weight 55.34 kg; Height 5 wh ft. 3 in. (160.02 cm); Pain 8/10; 11/05 01:30 BP 152 / 98; Pulse 109; Resp 18; Pulse Ox 100% ; wh 02:59 BP 137 / 93; Pulse 88; Resp 18; Temp 98.1; Pulse Ox 100% ; Pain 0/10; jv1 03:00 BP 135 / 78; Pulse 93; Resp 18; Pulse Ox 100% on R/A; wh 04:33 BP 132 / 72; Pulse 89; Resp 18; Temp 98.5; Pulse Ox 98% ; Pain 0/10; jv1 11/04 23:48 Body Mass Index 21.61 (55.34 kg, 160.02 cm) wh MDM: 11/04 23:49 Patient medically screened. [facility] 11/05 03:26 Data reviewed: vital signs, nurses notes. Data interpreted: Pulse oximetry: on room air snw is 100 %. Interpretation: normal. Counseling: I had a detailed discussion with the patient and/or guardian regarding: the historical points, exam findings, and any diagnostic results supporting the discharge/admit diagnosis, lab results, radiology results, the need for outpatient follow up, to return to the emergency department if symptoms worsen or persist or if there are any questions or concerns that arise at home. Special discussion: Based on the patient's Hx, exam, and Dx evaluation, there is no indication for emergent surgery or inpatient Tx. It is understood by the patient/guardian that if the Sx's persist or worsen they need to return immediately for re-evaluation. Based on the history and exam findings, there is no indication for further emergent testing or inpatient evaluation. I discussed with the patient/guardian the need to see the talk show host for further evaluation of the symptoms. I discussed with the patient/guardian the need to see the primary care provider for further evaluation of the symptoms. 11/04 23:41 Order name: Urine Culture snw 11/04 23:41 Order name: Urine Microscopic Only; Complete Time: 00:57 snw 11/04 23:58 Order name: Urine Dipstick--Ancillary (enter results); Complete Time: 00:21 mw2 11/04 23:58 Order name: Urine --Ancillary (enter results); Complete Time: 00:21 mw2 11/05 00:06 Order name: Basic Metabolic Panel; Complete Time: 01:12 snw 11/05 00:06 Order name: CBC with Diff; Complete Time: 01:40 snw 11/05 00:06 Order name: Creatinine for Radiology; Complete Time: 01:12 snw 11/05 00:06 Order name: Hepatic Function; Complete Time: 01:12 snw 11/05 00:06 Order name: Stool Culture snw 11/05 00:06 Order name: Occult Blood; Complete Time: 02:39 snw 11/05 00:06 Order name: Fecal Leukocyte Stain snw 11/05 00:57 Order name: Add On-Lab w 11/05 01:01 Order name: Thyroid Stimulating Hormone; Complete Time: 01:24 EDMS 11/05 01:01 Order name: Manual Differential; Complete Time: 01:40 EDMS 11/04 23:41 Order name: Urine Test (obtain specimen); Complete Time: 23:57 snw 11/04 23:41 Order name: Urine Dipstick-Ancillary (obtain specimen); Complete Time: 23:57 snw 11/05 00:06 Order name: Labs collected and sent; Complete Time: 00:34 snw 11/05 01:13 Order name: CT Abd/Pelvis - IV Contrast Only snw Administered Medications: 00:34 Drug: NS 0.9% 1000 ml Route: IV; Rate: 1 bolus; Site: right antecubital; 02:54 Follow up: Response: No adverse reaction; IV Status: Completed infusion 01:19 Drug: Bentyl 20 mg Route: PO; 02:54 Follow up: Response: No adverse reaction 02:57 Drug: Flagyl 500 mg Volume: 100 ml; Route: IVPB; Rate: 200 ml/hr; Infused Over: 30 jv1 mins; Site: right antecubital; 03:39 Follow up: Response: No adverse reaction; IV Status: Completed infusion jv1 03:38 Drug: Cipro 400 mg Volume: 200 ml; Route: IVPB; Infused Over: 60 mins; Site: right jv1 antecubital; 04:52 Follow up: Response: No adverse reaction; IV Status: Completed infusion jv1 03:38 Drug: Dulcolax Suppository 10 mg Route: MD; jv1 04:52 Follow up: Response: No adverse reaction jv1 03:38 Drug: Bisacodyl 10 mg Route: PO; jv1 04:51 Follow up: Response: No adverse reaction jv1 Disposition: 07:44 Co-signature as Attending Physician, Del Cantu MD I agree with the assessment and karen plan of care. Disposition: 11/05/19 03:23 Discharged to Home. Impression: Fecal impaction, Lower abdominal pain, unspecified. - Condition is Stable. - Discharge Instructions: Abdominal Pain, Adult, Fecal Impaction, [place] Diet. - Prescriptions for Erythromycin 500 mg Oral Tablet - take 1 tablet by ORAL route every 8 hours for 10 days; 30 tablet. Miralax 17 gram/dose Oral - take 1 packet by ORAL route once daily dilute powder in 8 ounces of water or juice; 1 box. - Work release form, Medication Reconciliation Form, Thank You Letter, Antibiotic Education, Prescription Opioid Use form. - Follow up: Private Physician; When: 2 - 3 days; Reason: Recheck today's complaints, Continuance of care, Re-evaluation by your physician. Signatures: Dispatcher [employer] Del Easton MD MD cha Therrien, Shelly, OCCUPATIONAL THERAPY PROFESSOR-C OCCUPATIONAL THERAPY PROFESSOR-Luis Umana Joyce, RN RN jv1 Corrections: (The following items were deleted from the chart) 04:55 03:23 11/05/2019 03:23 Discharged to Home. Impression: Fecal impaction; Lower abdominal jv1 pain, unspecified. Condition is Stable. Forms are Medication Reconciliation Form, Thank You Letter, Antibiotic Education, Prescription Opioid Use. Follow up: Private Physician; When: 2 - 3 days; Reason: Recheck today's complaints, Continuance of care, Re-evaluation by your physician. snw
[2019-11-05 11:30] VITALS: BP 132/72; TEMP 98.5; O2SAT 98
--- NOTE | 2019-11-05 12:16 | RAD REPORT ---
EXAM DESCRIPTION: CT - Abdomen Pelvis W Contrast - 11/05/2019 2:29 am CLINICAL HISTORY: ABD PAIN COMPARISON: None. 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 FINDINGS: Lower lungs are clear. Abdomen: The liver is normal in appearance. There is no biliary dilatation. Gallbladder is normal in appearance. The pancreas and spleen are normal in appearance. The adrenal glands and kidneys are unre markable. Abdominal aorta is normal in course and caliber without aneurysm. There is no free air. There is no r etroperitoneal adenopathy. Pelvis: There is large amount of stool in the distal colon. Urinary bladder is unremarkable. There is no free fluid. Uterus is normal in size. Appendix is not well seen. Skeleton: There are no acute osseous findings. No suspicious bony lesions. IMPRESSION: Distal fecal impaction. Electronically signed by: Melquiades Rodriguez MD 11/05/2019 3:04 AM PULLING UNIT OPERATOR Due to temporary technical issues with the PACS/Fluency reporting system, reports are being signed by the in house radiologist as a courtesy to ensure prompt reporting. The interpreting radiologist is f ully responsible for the content of the report.
== END 2019-11-05 04:55 | disposition home or self-care (01) ==
LOC: ER 23:26
DX: K56.41 Fecal impaction (principal)
CPT/HCPCS: 96365; 96361; 87088; 87045; 85025; 87086; 80048; 36415; 89055; 82274; 81025; 80076; 87046; 84443; 87077; 87186; 74177; 99284; Q9967; J7030; J0744; 81003; 81015

== ENCOUNTER 2024-04-12 22:38 | Emergency (ER) | payer OTHER ==
--- NOTE | 2024-04-13 06:34 | ER ---
Nurse's Notes [facility] Name: Nay An Age: 29 yrs Sex: Female : 1995 Arrival Date: 04/12/2024 Time: 22:38 Bed [id number] Private MD: Diagnosis: Presentation: 04/12 22:57 Chief complaint: Patient states: DECREASED APPETITE, DIZZY AND ABDOMINAL CRAMPING. PT cm10 IS 11 WEEKS . Coronavirus screen: Client denies travel out of the [place] in the last 14 days. At this time, the client does not indicate any symptoms associated with coronavirus-19. Ebola Screen: Patient denies travel to an Ebola-affected area in the 21 days before illness onset. No symptoms or risks identified at this time. Initial Sepsis Screen: Does the patient meet any 2 criteria? No. Patient's initial sepsis screen is negative. Does the patient have a suspected source of infection? No. Patient's initial sepsis screen is negative. Risk Assessment: Do you want to hurt yourself or someone else? Patient reports no desire to harm self or others. Onset of symptoms was April 12, 2024. 22:57 Method Of Arrival: Ambulatory cm10 22:57 Acuity: TRAMAINE 3 cm10 Triage Assessment: 22:58 General: Appears in no apparent distress. comfortable, Behavior is calm, cooperative. cm10 Pain: Complains of pain in abdomen. Neuro: No deficits noted. Level of Consciousness is awake, alert, obeys commands, Oriented to person, place, time, situation, Appropriate for age. Respiratory: No deficits noted. Airway is patent Respiratory effort is even, unlabored, Respiratory pattern is regular, symmetrical. CAN MACHINE OPERATOR: 22:59 3, Living 2, LMP 01/24/2024, Verified, EDC 10/30/2024, Gestational age cm10 from LMP: 11 weeks 3 days Historical: - Allergies: 22:58 No Known Drug Allergies; cm10 - PMHx: 22:58 None; cm10 - PSHx: 22:58 None; cm10 - Immunization history:: Adult Immunizations up to date. - Infectious Disease History:: Denies. - Social history:: Smoking status: Patient denies any tobacco usage or history of. Vital Signs: 22:57 BP 116 / 69; Pulse 75; Resp 18; Temp 98.1; Pulse Ox 99% on R/A; Weight 61.23 kg; Height cm10 5 ft. 3 in. ; Pain 0/10; 22:57 Body Mass Index 23.91 (61.23 kg, 160.02 cm) cm10 22:57 Pain Scale: Adult cm10 ED Course: 22:41 Patient arrived in ED. ra3 22:58 Triage completed. cm10 22:59 Arm band placed on Patient placed in waiting room. cm10 23:01 Del Barone PA is PHCP. cp 23:01 Del Cantu MD is Attending Physician. cp Administered Medications: No medications were administered Outcome: 23:53 Eloped from waiting room, before seeing physician vc1 23:53 Condition: stable vc1 23:53 Patient left the ED. vc1 Signatures: Del Barone PA PA cp Calcote, Vanessa RN RN vc1 Cheyenne Hall RN RN cm10 Anuradha Muniz ra3 Corrections: (The following items were deleted from the chart) 04/13 06:33 06:33 Patient left the ED. vc1 vc1
[2024-04-13 06:44] VITALS: BP 116/69; TEMP 98.1; O2SAT 99
== END 2024-04-13 06:33 | disposition left against medical advice (07) ==
LOC: ER 22:38
DX: Z53.21 Procedure and treatment not carried out due to patient leaving prior to being seen by health care provider (principal)
CPT/HCPCS: 99281

== ENCOUNTER 2024-10-10 10:59 | Emergency (ER) | payer OTHER ==
[2024-10-10 12:19] LABS: SARS-CoV-2 Antigen CONTROL BLUE LINE VIS/BG OK; SARS-CoV-2 Antigen Rapid Res Negative (Negative)
--- NOTE | 2024-10-10 12:55 | RAD REPORT ---
EXAMINATION: ONE VIEW CHEST XR CLINICAL INDICATION: COUGH TECHNIQUE: Frontal chest projection is submitted. Examination is limited by patient positioning and t echnique. COMPARISON: 10/19/2019 FINDINGS: The lungs are well inflated and clear. The heart is normal in size. No displaced fractures identified . IMPRESSION: No acute intrathoracic abnormalities.
--- NOTE | 2024-10-10 13:30 | EDPHYS ---
Physician Documentation [facility] Name: Nya An Age: 29 yrs Sex: Female : 1995 Arrival Date: 10/10/2024 Time: 10:59 Bed 12 Private MD: ED Physician Khoi Montero HPI: 10/10 11:28 This 29 yrs old Female presents to ER via Ambulatory with complaints of 35 wks ec2 , Chest Tightness, Shortness Of Breath. 11:28 Patient arrives today for evaluation of shortness of breath ongoing for 1 week. ec2 Intermittent without specific alleviating factors. Patient reports some sinus drainage. No fevers or chills, no cough or cold symptoms. Reports she is 35 weeks and otherwise has no concerns, no issues with so far.. 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 - Infectious Disease History:: Denies. - Social history:: Smoking status: unknown. ROS: 11:28 Constitutional: as per hpi ec2 Exam: 11:28 Constitutional: GEN: NAD Head: atraumatic Eyes: EOMI Ears: External ears are ec2 normal. CV: regular rate LUNGS: no respiratory distress, no wheezes or rales or rhonchi ABD: non-distended, gravid uterus SKIN: no evidence of rashes MSK: no evidence of trauma Vital Signs: 11:15 BP 138 / 76; Pulse 84; Resp 16; Temp 97(TE); Pulse Ox 100% on R/A; Weight 69.4 kg; cm10 Height 5 ft. 3 in. ; Pain 0/10; 13:40 BP 133 / 77; Pulse 80; Resp 17; Pulse Ox 99% on R/A; rs5 11:15 Body Mass Index 27.10 (69.40 kg, 160.02 cm) cm10 11:15 Pain Scale: Adult cm10 MDM: 11:23 Medical Screening Exam initiated ec2 11:28 Data reviewed: vital signs, nurses notes. ED course: Patient arrives today for ec2 evaluation of shortness of breath. Examination is unrevealing. Will obtain viral swabs, chest x-ray and EKG. Suspect progression of , additionally considered process such as viral infection, doubt pneumonia, doubt cardiomyopathy or PE.. 11:29 ED course: EKG independently reviewed and interpreted by me, shows normal sinus rhythm, ec2 rate of 94, no acute ST segment elevations, intervals are nonactionable.. 13:29 ED course: Chest x-ray shows no acute intrathoracic process. On reassessment patient ec2 remains well-appearing no acute distress. Will discharge home. Return precautions given. Suspect possible differential breathing given body habitus, status.. 10/10 11:22 Order name: Influenza Screen (a \T\ B); Complete Time: 12:46 ec2 10/10 11:22 Order name: SARS RAPID; Complete Time: 12:46 ec2 10/10 11:22 Order name: CXR XRAY; Complete Time: 13:28 ec2 10/10 11:22 Order name: EKG - Nurse/Tech; Complete Time: 11:26 ec2 Administered Medications: No medications were administered Disposition Summary: 10/10/24 13:29 Discharge Ordered Notes: Location: Home ec2 Condition: Stable ec2 Diagnosis - Dyspnea, unspecified ec2 Followup: ec2 - With: Private Physician - When: - Reason: Re-evaluation by your physician Discharge Instructions: - Discharge Summary Sheet ec2 - Shortness of Breath, Adult, Zmog-sk-Sdiy ec2 Forms: - Medication Reconciliation Form ec2 - Antibiotic Education ec2 - Prescription Opioid Use ec2 - Patient Portal Instructions ec2 - Leadership Thank You Letter ec2 Prescriptions: - albuterol sulfate 90 mcg/actuation Inhalation HFA Aerosol Inhaler - inhale 2 puff INHALATION route every 4 hours as needed for shortness of breath ec2 or wheezing; 1 unit; Refills: 0, Product Selection Permitted Signatures: Dispatcher [employer] Cheyenne Alexandra RN RN cm10 Khoi Montero MD MD ec2
--- NOTE | 2024-10-10 13:30 | ER ---
Nurse's Notes [facility] Name: Nay An Age: 29 yrs Sex: Female : 1995 Arrival Date: 10/10/2024 Time: 10:59 Bed 12 Private MD: Diagnosis: Dyspnea, unspecified Presentation: 10/10 11:15 Chief complaint: Patient states: chest tightness and shortness of breath onset 1 week cm10 ago. pt states that when this happens she gets dizzy. Coronavirus screen: Client denies travel out of the [place] in the last 14 days. Ebola Screen: Patient denies travel to an Ebola-affected area in the 21 days before illness onset. Initial Sepsis Screen: Does the patient meet any 2 criteria? No. Patient's initial sepsis screen is negative. Does the patient have a suspected source of infection? No. Patient's initial sepsis screen is negative. Risk Assessment: Do you want to hurt yourself or someone else? Patient reports no desire to harm self or others. Onset of symptoms was October 10, 2024. 11:15 Method Of Arrival: Ambulatory cm10 11:15 Acuity: TRAMAINE 3 cm10 Triage Assessment: 11:17 General: Appears in no apparent distress. comfortable, Behavior is calm, cooperative. cm10 Neuro: No deficits noted. Level of Consciousness is awake, alert, obeys commands, Oriented to person, place, time, situation, Appropriate for age. Respiratory: No deficits noted. Airway is patent Respiratory effort is even, unlabored, Respiratory pattern is regular, symmetrical. 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 - Infectious Disease History:: Denies. - Social history:: Smoking status: unknown. Screenin:22 [facility] ED Fall Risk Assessment (Adult) History of falling in the last 3 months, rs5 including since admission No falls in past 3 months (0 pts) Confusion or Disorientation No (0 pts) Intoxicated or Sedated No (0 pts) Impaired Gait No (0 pts) Mobility Assist Device Used No (0 pt) Altered Elimination No (0 pt) Score/Fall Risk Level 0 - 2 = Low Risk Oriented to surroundings, Maintained a safe environment. Abuse screen: Denies threats or abuse. Nutritional screening: No deficits noted. Tuberculosis screening: No symptoms or risk factors identified. Assessment: 11:22 General: Appears in no apparent distress. uncomfortable, Behavior is calm, cooperative. rs5 Pain: Complains of pain in chest Pain does not radiate. Pain currently is 3 out of 10 on a pain scale. Quality of pain is described as pressure, Pain began 1 week ago. Neuro: Level of Consciousness is awake, alert, obeys commands, Oriented to person, place, time, situation. Cardiovascular: Patient's skin is warm and dry. Respiratory: Airway is patent Respiratory effort is even, unlabored, Respiratory pattern is regular, symmetrical. GI: Abdomen is round distended. : No signs and/or symptoms were reported regarding the genitourinary system. EENT: No signs and/or symptoms were reported regarding the EENT system. 12:41 Reassessment: Patient and/or family updated on plan of care and expected duration. Pain rs5 level reassessed. Patient is alert, oriented x 3, equal unlabored respirations, skin warm/dry/pink. 13:11 Reassessment: Patient and/or family updated on plan of care and expected duration. Pain rs5 level reassessed. Patient is alert, oriented x 3, equal unlabored respirations, skin warm/dry/pink. Vital Signs: 11:15 BP 138 / 76; Pulse 84; Resp 16; Temp 97(TE); Pulse Ox 100% on R/A; Weight 69.4 kg; cm10 Height 5 ft. 3 in. ; Pain 0/10; 13:40 BP 133 / 77; Pulse 80; Resp 17; Pulse Ox 99% on R/A; rs5 11:15 Body Mass Index 27.10 (69.40 kg, 160.02 cm) cm10 11:15 Pain Scale: Adult cm10 ED Course: 11:02 Patient arrived in ED. mr 11:14 Khoi Montero MD is Attending Physician. ec2 11:16 Triage completed. cm10 11:17 Arm band placed on right wrist. Patient placed in waiting room. EKG completed in cm10 triage. Results shown to MD. 11:20 EKG done, by ED staff, reviewed by Khoi Montero MD. cm10 11:22 Patient has correct armband on for positive identification. Bed in low position. Call rs5 light in reach. Side rails up X2. Client placed on continuous cardiac and pulse oximetry monitoring. NIBP monitoring applied. 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 Pulse ox on. NIBP on. 11:22 No provider procedures requiring assistance completed. Patient maintains SpO2 rs5 saturation greater than 95% on room air. 11:31 SARS RAPID Sent. [facility] 11:31 Influenza Screen (a \T\ B) Sent. 6 11:31 COVID swab sent to lab. Flu and/or RSV swab sent to lab. 6 12:52 CXR XRAY In Process Unspecified. EDMS 13:10 Marco Dunbar, RN is Primary Nurse. rs5 13:40 Provided Education on: discharge instructions . rs5 13:46 Patient did not have IV access during this emergency room visit. iw Administered Medications: No medications were administered Medication: 13:12 VIS not applicable for this client. rs5 Outcome: 13:29 Discharge ordered by . ec2 13:46 Discharged to home ambulatory, iw 13:46 Condition: good 13:46 Discharge instructions given to patient, Instructed on discharge instructions, follow up and referral plans. Demonstrated understanding of instructions, follow-up care, 13:46 Patient left the ED. iw Signatures: Dispatcher [employer] EDMA Nettie Moon, Reg Reg Zaynab Julio, RN RN iw Marco Dunbar, RN RN rs5 Nina Guallpa 6 Cheyenne Hall, RN RN Khoi Logan MD MD ec2 Corrections: (The following items were deleted from the chart) 16:57 14:33 BP 133 / 77; Pulse 80bpm; Resp 17bpm; Pulse Ox 99% RA; rs5 rs5
[2024-10-10 14:11] VITALS: BP 138/76; TEMP 97; O2SAT 100
--- NOTE | 2024-10-14 11:22 | EKG ---
Test Date: 2024-10-10 Test Time: 11:23:55 Claim Processing Specialist: TAO MEASUREMENT RESULTS: Intervals: Rate: 94 PA: 116 QRSD: 86 QT: 358 QTc: 447 [place]: P: 27 PA: 116 QRS: 89 T: 7 INTERPRETIVE STATEMENTS: Normal sinus rhythm Normal ECG Compared to ECG 10/19/2019 00:00:32 Sinus tachycardia no longer present Right-axis deviation no longer present Myocardial infarct finding no longer present ST (T wave) deviation no longer present Possible ischemia no longer present Electronically Signed On 10-14-24 11:15:57 DRAG OUT WORKER by Brian Sin
== END 2024-10-10 13:46 | disposition home or self-care (01) ==
LOC: ER 10:59
DX: O99.513 Diseases of the respiratory system complicating pregnancy, third trimester (principal); R06.00 Dyspnea, unspecified; Z3A.35 35 weeks gestation of pregnancy; Z11.52 Encounter for screening for COVID-19
CPT/HCPCS: 36415; 71045; 87804; 87811; 93005; 99284

== ENCOUNTER 2025-03-03 17:46 | Emergency (ER) | payer OTHER ==
[2025-03-03 19:38] LABS: Absolute Eosinophils 0.1 K/uL (0-0.5); Absolute Lymphocytes (CBC) 1.8 K/uL (0.7-4.9); Absolute Monocytes 0.4 K/uL (0.1-1.3); Absolute Neutrophil 7.2 K/uL (1.8-8.0); Basophils % 0.5 % (0-1.3); Eosinophils % 0.6 % (0-4.4); Hematocrit 37.6 % (36.0-45.0); Hemoglobin 12.7 g/dL (12.0-15.0); Lymphocytes % 19.4 % (15.3-44.8); MCH 26.6 pg (27.0-35.0); MCHC 33.8 g/dL (32.0-36.0); MCV 78.8 fL (80-100); MPV 9.8 fL (7.6-11.3); Monocytes % 3.9 % (3.3-12.3); Neutrophils % 75.6 % (41.7-73.7); Platelets 222 thou/uL (152-406); RBC Red Blood Cell Count 4.76 M/uL (3.86-4.86); Red Cell Distribution Width 16.7 % (12.1-15.2)
[2025-03-03 19:42] LABS: Specific Gravity 1.028 (1.005-1.030); Urine Bacteria None Seen /HPF (<20); Urine Bilirubin NEGATIVE (Negative); Urine Blood Negative (Negative); Urine Clarity Extremely Turbid (Clear); Urine Color Light-Yellow (Yellow); Urine Culture Reflex Order NOT NEEDED; Urine Glucose NEGATIVE (Negative); Urine Ketones NEGATIVE (Negative); Urine Microscopic Reflex YN ORDER UMIC; Urine Mucus Slight /HPF (None Seen); Urine Nitrite NEGATIVE (Negative); Urine Protein NEGATIVE (Negative); Urine RBC <5 /HPF (None Seen); Urine Urobilinogen 1+ (Normal); Urine WBC <5 /HPF (<5)
[2025-03-03 19:48] LABS: Specific Gravity 1.028 (1.005-1.030)
[2025-03-03 19:59] LABS: Barbiturates NEGATIVE (NEGATIVE); Benzodiazepines NEGATIVE (NEGATIVE); Cocaine NEGATIVE (NEGATIVE); METHAMPHETAM NEGATIVE (NEGATIVE); Methadone NEGATIVE (NEGATIVE); Opiates NEGATIVE (NEGATIVE); Phencyclidine NEGATIVE (NEGATIVE); THC Cannibis NEGATIVE (NEGATIVE)
[2025-03-03 20:01] LABS: ALT/SGPT 25 U/L (13-56); AST/SGOT 14 U/L (15-37); Albumin 3.7 g/dL (3.4-5.0); Alkaline Phosphatase 83 U/L (45-117); Anion Gap 8.4 mEq/L (5.0-15.0); BUN Blood Urea Nitrogen 10 mg/dL (7-18); Bicarbonate 27 mEq/L (21-32); Bilirubin Total 0.2 mg/dL (0.2-1.0); Globulin 3.7 g/dL (2.3-3.5); Glomerular Filtration Rate 108 ml/min (=/>90); Glucose Level 95 mg/dL (74-106); Magnesium 2.1 mg/dL (1.6-2.4); Potassium 3.4 mEq/L (3.5-5.1); Protein, Total 7.4 g/dL (6.4-8.2); Sodium Level 142 mEq/L (136-145); T3 Free 3.04 pg/mL (2.18-3.98); Troponin High Sensitivity 3.7 pg/mL (<58.9)
--- NOTE | 2025-03-03 20:02 | RAD REPORT ---
EXAM: Chest Single View HISTORY: 29 years Female CHEST PAIN COMPARISON: 10/10/2024 FINDINGS: LUNGS/PLEURA: The lungs are clear. No pleural effusions or pneumothorax. No pulmonary edema. CARDIAC/MEDIASTINUM: The cardiac silhouette is within normal limits. UPPER ABDOMEN: No significant abnormality. BONES: No acute abnormality. LINES/TUBES/OTHER: N/A IMPRESSION: No evidence of acute cardiopulmonary disease.
[2025-03-03 20:06] LABS: Bilirubin Direct < 0.2 mg/dL (0-0.2)
[2025-03-03] MEDS ORDERED: POTASSIUM 25 MEQ EFFERV TAB ONE (20:47)
--- NOTE | 2025-03-03 21:13 | RAD REPORT ---
EXAMINATION: Head Brain Wo Cont CLINICAL INDICATION: Female, 29 years old.Dizziness;Headache TECHNIQUE: Axial CT images from the skull base to the vertex without intravenous contrast. Coronal an d sagittal reformatted images were created from the data set. One or more of the following dose reduction techniques were used: Automated exposure control, adjustment of the mA and/or kV according to patient size, and/or iterative reconstruction. Unless otherwise specified, incidental findings do not require dedicated imaging follow-up. [id number]. COMPARISON: No prior exam. FINDINGS: INTRACRANIAL: No acute intracranial hemorrhage. No hydrocephalus. No mass effect or midline shift. No significant white matter disease. VASCULATURE: No visualized abnormalities in the arteries or dural venous sinuses. SCALP/SKULL: No calvarial fracture identified. No acute soft tissue abnormality. SINUSES: The visualized paranasal sinuses are mostly clear. No significant mastoid fluid. IMPRESSION: No acute intracranial abnormality.
--- NOTE | 2025-03-03 21:53 | EDPHYS ---
Physician Documentation [facility] Name: Nay An Age: 29 yrs Sex: Female : 1995 Arrival Date: 03/03/2025 Time: 17:46 Bed 11 Private MD: ED Physician Arjun Quinones HPI: 03/03 18:25 This 29 yrs old Female presents to ER via Ambulatory with complaints of cp Headache, Shortness Of Breath, Chest Tightness, Dizziness, Nausea. 18:25 The patient complains of pain to the diffuse. cp 18:25 The patient describes the headache as aching. Onset: The symptoms/episode cp began/occurred for several months. Associated signs and symptoms: Pertinent positives: dizziness, nausea, weakness, Pertinent negatives: fever, Photophobia vomiting. 18:25 Severity of symptoms: in the emergency department the pain has resolved. Headache cp History: Denies prior headaches. Historical: - Allergies: 18:15 No Known Allergies; ap3 - PMHx: 18:15 hyperthyroidism; eclampsia (hyperthyroidism); ap3 - Immunization history:: Adult Immunizations up to date. - Infectious Disease History:: Denies. - Social history:: Smoking status: Patient denies any tobacco usage or history of. ROS: 18:30 Constitutional: Negative for body aches, chills, fever, poor PO intake, cp 18:30 Cardiovascular: Positive for chest pain, Negative for edema, palpitations, cp 18:30 Respiratory: Positive for shortness of breath, Negative for cough, wheezing, cp 18:30 Abdomen/GI: Positive for abdominal pain, nausea, Negative for vomiting, diarrhea, constipation, 18:30 : Negative for urinary symptoms, vaginal bleeding, vaginal discharge, 18:30 Neuro: Positive for dizziness, headache, weakness, Negative for altered mental status, syncope, near syncope, Exam: 18:33 ECG was reviewed by the Attending Physician. cp 18:35 Constitutional: The patient appears in no acute distress, alert, awake, cp non-diaphoretic, non-toxic, well developed, well nourished, 18:35 Head/Face: Normocephalic, atraumatic. cp 18:35 Eyes: Periorbital structures: appear normal, Conjunctiva: normal, no exudate, no injection, Sclera: no appreciated abnormality, Lids and lashes: appear normal, bilaterally, 18:35 ENT: External ear(s): are unremarkable, Nose: is normal, Mouth: Lips: moist, Oral mucosa: pink and intact, moist, Posterior pharynx: Airway: no evidence of obstruction, patent, 18:35 Neck: ROM/movement: is normal, is supple, without pain, no range of motions limitations, 18:35 Chest/axilla: Inspection: normal, 18:35 Cardiovascular: Rate: normal, Rhythm: regular, Edema: is not appreciated, JVD: is not appreciated, 18:35 Respiratory: the patient does not display signs of respiratory distress, Respirations: normal, no use of accessory muscles, no retractions, labored breathing, is not present, Breath sounds: are clear throughout, no decreased breath sounds, no stridor, no wheezing, 18:35 Abdomen/GI: Inspection: abdomen appears normal, Palpation: abdomen is soft and non-tender, in all quadrants, 18:35 Back: CVA tenderness, is absent, 18:35 Skin: no rash present. 18:35 Neuro: Orientation: to person, place \T\ time. Mentation: is normal, Cerebellar function: Romberg testing is negative, Motor: moves all fours, strength is normal, Gait: is steady, Vital Signs: 18:12 BP 138 / 99; Pulse 85; Resp 17; Temp 98.5(O); Pulse Ox 99% on R/A; Pain 0/10; ap3 20:32 BP 129 / 88 Supine; Pulse 72; vc1 20:33 BP 124 / 84; Pulse 75; vc1 20:34 BP 129 / 90; Pulse 82; vc1 22:09 BP 126 / 88; Pulse 76; Resp 18; Pulse Ox 99% ; vc1 18:12 Pain Scale: Adult ap3 MDM: 18:20 Medical Screening Exam initiated cp 20:00 Differential diagnosis: cerebral vascular accident, glaucoma, herpes zoster, cp hypertensive headache, intracerebral hemorrhage, migraine, neoplasm, sinusitis, tension headache. 21:52 Data reviewed: vital signs, nurses notes, lab test result(s), EKG, radiologic studies, cp plain films. 21:52 I considered the following discharge prescriptions or medication management in the emergency department Medications were administered in the Emergency Department. See MAR. Counseling: I had a detailed discussion with the patient and/or guardian regarding the historical points, exam findings, and any diagnostic results supporting the discharge/admit diagnosis, lab results, radiology results, the need for outpatient follow up, a family practitioner, to return to the emergency department if symptoms worsen or persist or if there are any questions or concerns that arise at home. 03/03 18:22 Order name: Basic Metabolic Panel; Complete Time: 20:30 cp / 20:30 Interpretation: Normal except: K 3.4; CL 110. cp 03/03 18:22 Order name: CBC with Diff; Complete Time: 20:30 cp 03/03 20:31 Interpretation: Normal except: MCV 78.8; MCH 26.6; RDW 16.7; GARY% 75.6. cp 03/03 18:22 Order name: D-Dimer; Complete Time: 20:30 cp 03/03 18:22 Order name: LFT's; Complete Time: 20:30 cp 03/03 20:31 Interpretation: Normal except: AST 14; IBILI, CALC 0.0; GLOB 3.7; A/G 1.0. cp 03/03 18:22 Order name: Magnesium; Complete Time: 20:30 cp 03/03 18:22 Order name: Troponin HS; Complete Time: 20:30 cp 03/03 18:22 Order name: UA Rfx Matthew Cult if indicated; Complete Time: 20:30 cp 03/03 20:31 Interpretation: Normal except: [facility] Extremely Turbid; UUROB 1+; UESTR 250. cp 03/03 18:22 Order name: Test, Urine; Complete Time: 20:30 cp 03/03 18:22 Order name: TSH; Complete Time: 20:30 cp 03/03 18:22 Order name: T3 Free; Complete Time: 20:30 cp 03/03 18:23 Order name: UDS; Complete Time: 20:30 cp 03/03 18:22 Order name: XRAY Chest (1 view); Complete Time: 20:30 cp 03/03 20:32 Order name: CT Head Brain wo Cont; Complete Time: 21:48 cp 03/03 18:22 Order name: EKG - Nurse/Tech; Complete Time: 18:27 cp 03/03 18:22 Order name: IV Saline Lock; Complete Time: 20:27 cp 03/03 18:22 Order name: Labs collected and sent; Complete Time: 20:27 cp 05/ 18:22 Order name: O2 Per Protocol; Complete Time: 20: cp 03/03 18:22 Order name: O2 Sat Monitoring; Complete Time: 20: cp 03/03 18:22 Order name: Orthostatics; Complete Time: 21:05 cp EC:33 Rate is 96 beats/min. Rhythm is regular. MT interval is normal. QRS interval is normal. cp QT interval is normal. T waves are Inverted in leads II, III, aVF, V3. Interpreted by me. Reviewed by me. Administered Medications: 21:03 Drug: Potassium PO Effervescent Tablet 50 mEq PO once; dissolve in 4 ounces of water or vc1 juice Route: PO; 22:08 Follow up: Response: No adverse reaction vc1 Disposition: 03/04 20:11 I was immediately available on-site in the Emergency Department for consultation in the ms3 care of the patient. 22:05 Chart complete. cp Disposition Summary: 03/03/25 21:53 Discharge Ordered Notes: Location: Home cp Problem: new cp Symptoms: have improved cp Condition: Stable cp Diagnosis - Headache cp - Chest pain, unspecified cp - Abdominal pain, unspecified cp Followup: cp - With: Private Physician - When: 5 - 6 days - Reason: Recheck today's complaints Discharge Instructions: - Discharge Summary Sheet cp - Abdominal Pain, Adult cp - Nonspecific Chest Pain, Adult cp - General Headache Without Cause cp - Managing Stress, Adult cp - Managing Anxiety, Adult cp Forms: - Medication Reconciliation Form cp - Antibiotic Education cp - Prescription Opioid Use cp - Patient Portal Instructions cp - Leadership Thank You Letter cp Signatures: Dispatcher [employer] EDMS Del Barone PA PA cp Prokisch, Amanda, RN RN ap3 Arjun Quinones DO DO ms3 Radha Carter RN RN vc1 Corrections: (The following items were deleted from the chart) 03/03 18:23 18:23 BASIC METABOLIC PANEL+C.LAB.BRZ ordered. EDMS EDMS 18:23 18:23 CBC+H.LAB.BRZ ordered. EDMS EDMS 18:23 18:23 D-DIMER+COAG.LAB.BRZ ordered. EDMS EDMS 18:23 18:23 HEPATIC FUNCTION+C.LAB.BRZ ordered. EDMS EDMS 18:23 18:23 MAGNESIUM+C.LAB.BRZ ordered. EDMS EDMS 18:23 18:23 Troponin High Sensitivity+C.LAB.BRZ ordered. EDMS EDMS 18:23 18:23 UA Rfx Matthew Cult if indicated+U.LAB.BRZ ordered. EDMS EDMS 18:23 18:23 Test, Urine+UC.LAB.BRZ ordered. EDMS EDMS 18:23 18:23 THYROID STIMULAT HORMONE+C.LAB.BRZ ordered. EDMS EDMS 18:23 18:23 T3 FREE+C.LAB.BRZ ordered. EDMS EDMS 18:23 18:23 Chest Single View+RAD.RAD.BRZ ordered. EDMS EDMS 18:23 18:23 URINE DRUG SCREEN+UC.LAB.BRZ ordered. EDMS EDMS 20:32 20:32 Head Brain Wo Cont+CT.RAD.BRZ ordered. EDMS EDMS
--- NOTE | 2025-03-03 21:53 | ER ---
Nurse's Notes [facility] Name: Nay An Age: 29 yrs Sex: Female : 1995 Arrival Date: 03/03/2025 Time: 17:46 Bed 11 Private MD: Diagnosis: Headache;Chest pain, unspecified;Abdominal pain, unspecified Presentation: 03/03 18:12 Chief complaint: Patient states: she has been having headache that medications are not ap3 helping, feeling like she is having "air hunger", dizziness, and a "fuzzy and tingly feeling in my body". Patient states these symptoms have been going on for a couple of months but have gotten worse over the last week or so. Coronavirus screen: At this time, the client does not indicate any symptoms associated with coronavirus-19. Ebola Screen: No symptoms or risks identified at this time. Initial Sepsis Screen: Does the patient meet any 2 criteria? No. Patient's initial sepsis screen is negative. Does the patient have a suspected source of infection? No. Patient's initial sepsis screen is negative. Risk Assessment: Do you want to hurt yourself or someone else? Patient reports no desire to harm self or others. Onset of symptoms is unknown. 18:12 Method Of Arrival: Ambulatory ap3 18:12 Acuity: TRAMAINE 3 ap3 Triage Assessment: 18:15 Headache History: The patient has had previous headaches. General: Appears in no ap3 apparent distress. Behavior is calm, cooperative, appropriate for age, Reports feeling ill for fatigue for. Pain: Denies pain. Neuro: Level of Consciousness is awake, alert, obeys commands, Oriented to person, place, time, situation, Speech is normal, Reports dizziness, headache. Cardiovascular: Patient's skin is warm and dry. Respiratory: Airway is patent Respiratory effort is even, unlabored, Respiratory pattern is regular, symmetrical. GI: Reports nausea. Historical: - Allergies: 18:15 No Known Allergies; ap3 - PMHx: 18:15 hyperthyroidism; eclampsia (hyperthyroidism); ap3 - Immunization history:: Adult Immunizations up to date. - Infectious Disease History:: Denies. - Social history:: Smoking status: Patient denies any tobacco usage or history of. Screenin:16 [facility] ED Fall Risk Assessment (Adult) History of falling in the last 3 months, ap3 including since admission No falls in past 3 months (0 pts) Confusion or Disorientation No (0 pts) Intoxicated or Sedated No (0 pts) Impaired Gait No (0 pts) Mobility Assist Device Used No (0 pt) Altered Elimination No (0 pt) Score/Fall Risk Level 0 - 2 = Low Risk Oriented to surroundings, Maintained a safe environment, Educated pt \\T\\ family on fall prevention, incl call for assistance when getting out of bed, Assessed \\T\\ reinforced patient's understanding of fall precautions, Hourly rounding (assess needs \\T\\ fall precautionary measures) done, Used ambulatory aids as needed (educated on \\T\\ assisted with). Abuse screen: Denies threats or abuse. Nutritional screening: No deficits noted. Tuberculosis screening: No symptoms or risk factors identified. Vital Signs: 18:12 BP 138 / 99; Pulse 85; Resp 17; Temp 98.5(O); Pulse Ox 99% on R/A; Pain 0/10; ap3 20:32 BP 129 / 88 Supine; Pulse 72; vc1 20:33 BP 124 / 84; Pulse 75; vc1 20:34 BP 129 / 90; Pulse 82; vc1 22:09 BP 126 / 88; Pulse 76; Resp 18; Pulse Ox 99% ; vc1 18:12 Pain Scale: Adult ap3 ED Course: 17:52 Patient arrived in ED. im 17:52 Del Barone PA is PHCP. cp 17:52 Arjun Quinones DO is Attending Physician. cp 18:15 Triage completed. ap3 18:17 Arm band placed on right wrist. ap3 18:26 EKG done, by ED staff, reviewed by Del MONTGOMERY. ap3 19:25 Inserted saline lock: 20 gauge in right antecubital area, using aseptic technique. sa1 Blood collected. Flushed with 10 mL NS. 19:28 Initial lab(s) drawn, by [place], sent to lab. Urine collected: clean catch specimen, clear. sa1 19:45 XRAY Chest (1 view) In Process Unspecified. EDMS 20:00 Patient has correct armband on for positive identification. Bed in low position. Call vc1 light in reach. 21:04 CT Head Brain wo Cont In Process Unspecified. EDMS 22:08 Radha Carter, RN is Primary Nurse. vc1 22:09 No provider procedures requiring assistance completed. Patient did not have IV access vc1 during this emergency room visit. Administered Medications: 21:03 Drug: Potassium PO Effervescent Tablet 50 mEq PO once; dissolve in 4 ounces of water or vc1 juice Route: PO; 22:08 Follow up: Response: No adverse reaction vc1 Medication: 22:10 VIS not applicable for this client. vc1 Outcome: 21:53 Discharge ordered by . petty 22:09 Discharged to home ambulatory, vc1 22: Condition: stable 22:09 Discharge instructions given to patient, Instructed on discharge instructions, follow up and referral plans. Demonstrated understanding of instructions, follow-up care, 22:10 Patient left the ED. vc1 Signatures: Dispatcher [employer] EDMS Del Barone PA PA cp Prokisch, Amanda, RN RN ap3 Radha Carter RN RN vc1 Adeline Adams Sultan 1
[2025-03-03 22:17] VITALS: TEMP 98.5; O2SAT 99
[2025-03-03 22:23] VITALS: BP 126/88
== END 2025-03-03 22:10 | disposition home or self-care (01) ==
LOC: ER 17:46
DX: R51.9 Headache, unspecified (principal); R07.9 Chest pain, unspecified; R10.84 Generalized abdominal pain; R53.1 Weakness
CPT/HCPCS: 36415; 70450; 71045; 80048; 80076; 80307; 81001; 81025; 83735; 84443; 84481; 84484; 85025; 85379; 93005; 99284